=== PATIENT | female | born 1975 | race Hispanic/Latino ===

== ENCOUNTER 2019-08-21 14:09 | Emergency (ER) | payer OTHER, SELFPAY ==
[2019-08-21 14:15] VITALS: BP 134/62; PULSE 95; RESP 14; TEMP 36.6; O2SAT 99
--- NOTE | 2019-08-21 14:17 | ED.FALL ---
HPI - Fall General Chief Complaint: Fall Stated Complaint: Fall Time Seen by Provider: 08/21/19 14:23 Source: patient and RN notes reviewed Mode of arrival: ambulatory Limitations: no limitations History of Present Illness HPI Narrative: This is a 44 years old female presents to the office for an evaluation of feeling weak and then she fell. She landed on her hands and knees. Denies head injury or trauma. She complains of feeling weak, headache and not feeling well overall. She is diabetic. Related Data Home Medications Medication Instructions Recorded Confirmed fluoxetine 40 mg PO DAILY 08/21/19 08/21/19 metformin 1,000 mg PO BID 08/21/19 08/21/19 Allergies Allergy/AdvReac Type Severity Reaction Status Date / Time Penicillins Allergy Unknown Unknown Verified 08/21/19 14:24 Sulfa (Sulfonamide Allergy Unknown Unknown Verified 08/21/19 14:24 Antibiotics) Review of Systems Review of Systems: Narrative: CONSTITUTIONAL: Denies fever. Reports feeling weak, malaise ENT: Reports congestion CARDIOVASCULAR: Denies chest pain, palpitation RESPIRATORY: Denies dyspnea GASTROINTESTINAL: Denies abdominal pain, nausea, vomiting GENITOURINARY: Denies urinary incontinence or bowel incontinence. SKIN: denies skin trauma MUSCULOSKELETAL: Reports left wrist pain, right foot pain NEUROLOGIC: Denies lightheaded or dizziness prior to arrival; but remember feeling weak PMFSH Past Medical History Medical History (Updated 08/21/19 @ 14:58 by LAW Landrum) Anxiety Diabetes mellitus, type II Social History Social History (Updated 08/21/19 @ 14:59 by LAW Landrum) Smoking status: Never smoker Comments At time of signature, I agree with nursing past medical, surgical, social and family history. There is no relevant family history pertinent to the presenting complaint. Exam Narrative: Exam Narrative: GENERAL: This is a well-nourished, well-developed patient, in no apparent distress. HEAD: normocephalic EYES: PERRL. EMOI. Sclera clear/white. Vision is grossly intact. CARDIOVASCULAR: Regular rate and rhythm without murmurs, gallops, or rubs. RESPIRATORY: Clear to auscultation. Breath sounds equal bilaterally. No wheezes, rales, or rhonchi. GASTROINTESTINAL: Abdomen soft, non-tender, nondistended. Bowel sounds are active. No hepato-splenomegaly, or palpable masses. No guarding. SKIN: right lower leg with small skin abrasion. NEURO: awake, alert, and oriented to person, place and time. There were no obvious focal neurologic abnormalities. Steady gait EXTREMITIES:left wrist with limited ROM secondary to pain, right ankle is not swollen; however there is tenderness over dorsal aspect of foot. Robert Coma Scale Eye Opening: Spontaneous 4 [place] Coma Scale Motor: Obeys Commands 6 Robert Coma Scale Verbal: Oriented 5 Course Vital Signs Vital signs: Vital Signs Temperature 97.8 F 08/21/19 14:15 Pulse Rate 95 08/21/19 14:15 Respiratory Rate 14 08/21/19 14:15 Blood Pressure 134/62 08/21/19 14:15 Pulse Oximetry 99 08/21/19 14:15 Temperature 97.8 F 08/21/19 14:15 Pulse Rate 95 08/21/19 14:15 Respiratory Rate 14 08/21/19 14:15 Blood Pressure 134/62 08/21/19 14:15 Pulse Oximetry 99 08/21/19 14:15 Transfer Transfered to: [facility] Transportation: BLS Transfer rationale: Diagnostic testing Accepting physician: Dr. Ramírez MDM - Fall MDM Narrative Medical decision making narrative: CAD, wrist sprain, foot sprain/strain Differential Diagnosis Differential diagnosis: Likely syncope Lab Data Labs: Lab Results 08/21/19 Range/Units 14:48 POC Capillary Glucose 202 H (65-105) mg/dl Critical Care Time Critical Care Time Critical Care Time: No Discharge Plan Discharge Clinical Impression: Near syncope Patient Disposition: Acute Care Hospital Condition: Stable Prescriptions: No Action metformin 500 mg Tablet
[2019-08-21 14:51] LABS: Glucose Point of Care 202 (65-105)
== END 2019-08-21 15:00 | disposition short-term general hospital (02) ==
PROVIDERS: Emergency Provider Nurse Practitioner
DX: R55 Syncope and collapse (principal); E11.9 Type 2 diabetes mellitus without complications; F41.9 Anxiety disorder, unspecified
CPT/HCPCS: 82948; 99215; G0463

== ENCOUNTER 2020-09-23 12:15 | Emergency (ER) | payer OTHER, MEDICAID, SELFPAY ==
--- NOTE | 2020-09-23 12:19 | ED.GENADULT ---
HPI - General Adult General Chief complaint: Unspecified Stated complaint: blood sugar off Time Seen by Provider: 09/23/20 12:19 Source: patient and RN notes reviewed History of Present Illness HPI narrative: Patient is a 45-year-old female who presents the urgent care with complaints of blurry vision and dizziness . Patient states that her blood sugars have been high today and she is feeling side effects. Patient does have a building code administrator via phone call, her daughter Tracie Rangel. Patient states that she has also been having some chest tightness. Patient currently denies of any shortness of breath. States that she did have an [place] x1 year ago. Denies of any nausea or vomiting. Denies of any abdominal pain. Patient states she does take her diabetes medications appropriately. No other acute complaints. No acute distress noted. Patient aware of the plan of care. Some parts of this dictation were generated by voice recognition software and may contain typographical and/or grammatical inaccuracies. Related Data Home Medications Medication Instructions Recorded Confirmed fluoxetine 40 mg PO DAILY 08/21/19 08/21/19 metformin 1,000 mg PO BID 08/21/19 08/21/19 buspirone 5 mg PO BID 09/23/20 09/23/20 insulin lispro protamin-lispro 75 unit SUBCUT BID 09/23/20 09/23/20 Allergies Allergy/AdvReac Type Severity Reaction Status Date / Time Penicillins Allergy Unknown Unknown Verified 09/23/20 12:32 Sulfa (Sulfonamide Allergy Unknown Unknown Verified 09/23/20 12:32 Antibiotics) Review of Systems Review of Systems: Narrative: CONSTITUTIONAL: Denies fever, chills, or sweats. EYES: Denies visual changes, redness, or discharge. ENT: Denies rhinorrhea, congestion, sore throat, or otalgia. CARDIOVASCULAR: Reports of intermittent chest tightness (currently denies chest pain) RESPIRATORY: Denies cough or dyspnea. GASTROINTESTINAL: Denies abdominal pain, nausea, vomiting, or diarrhea. GENITOURINARY: Denies dysuria or hematuria. SKIN: Denies rash or itching. MUSCULOSKELETAL: Denies back pain, joint pain, or myalgia. NEUROLOGIC: Reports of blurry vision and dizziness All other systems reviewed are negative, except as documented in HPI. [facility] Past Medical History Medical History (Updated 09/23/20 @ 12:39 by LAW Stokes) Anxiety Diabetes mellitus, type II Social History Social History (Updated 08/21/19 @ 14:59 by LAW Landrum) Smoking status: Never smoker Gender identity (if verbalized by the patient): Female Comments At the time of my signature, I reviewed and agree with the nursing past medical, surgical, social, and family history. There is no relevant family history pertinent to the patient complaint. Exam Narrative: Exam Narrative: GENERAL: This is a well-nourished, well-developed patient, in no apparent distress. HEAD: normocephalic, atraumatic. EYES: PERRL. Sclera clear/white. Vision is grossly intact. EARS: External ears normal NOSE: External nose normal with no obvious nasal discharge, nares without redness, no rhinorrhea. THROAT: Mucous membranes moist NECK: Neck supple CARDIOVASCULAR: Regular rate and rhythm RESPIRATORY: Clear to auscultation. Breath sounds equal bilaterally. GASTROINTESTINAL: Abdomen soft, non-tender, nondistended. NEURO: awake, alert, and oriented to person, place and time. There were no obvious focal neurologic abnormalities. 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 EXTREMITIES: No clubbing, cyanosis, or edema. Course Vital Signs Vital signs: Vital Signs Temperature 97.5 F L 09/23/20 12:23 Pulse Rate 94 09/23/20 12:23 Respiratory Rate 24 H 09/23/20 12:23 Blood Pressure 150/78 H 09/23/20 12:23 Pulse Oximetry 99 09/23/20 12:23 Temperature 97.5 F L 09/23/20 12:23 Pulse Rate 94 09/23/20 12:23 Respiratory Rate 24 H 09/23/20 12:23 Blood Pressure 150/78 H 09/23/20 12:23 Pulse Oximetry 99 09/23/20 12:23 Reviewed-zak
[2020-09-23 12:23] VITALS: BP 150/78; PULSE 94; RESP 24; TEMP 36.4; O2SAT 99
[2020-09-23 12:38] LABS: Glucose Point of Care 366 mg/dl (65-105)
--- NOTE | 2020-09-23 12:42 | ECG_ITS ---
Measurements Intervals [place] Rate: 92 P: 50 FL: 139 QRS: 33 QRSD: 82 T: 49 QT: 354 QTc: 440 Interpretive Statements SINUS RHYTHM BASELINE ARTIFACT- II, III, AVR, AVL, AVF NORMAL ECG Electronically Signed On 09-23-2020 13:04:20 CDT by Luis Madison D.O.
== END 2020-09-23 12:40 | disposition short-term general hospital (02) ==
PROVIDERS: Emergency Provider Nurse Practitioner Family; PCP Family Medicine
DX: E11.65 Type 2 diabetes mellitus with hyperglycemia (principal); R07.9 Chest pain, unspecified; F41.9 Anxiety disorder, unspecified
CPT/HCPCS: 82948; 93005; 99213; G0463

== ENCOUNTER 2020-10-29 14:57 | Emergency (ER) | payer OTHER, MEDICAID, SELFPAY ==
--- NOTE | ~2020-10-29 | XR_ITS ---
EXAMINATION: XR chest 2V DATE: 10/29/2020 15:39 INDICATION: Chest pain. Shortness of breath. TECHNIQUE: Frontal and lateral views of the chest were obtained. COMPARISON: None. FINDINGS: The chest demonstrates clear lungs without pneumonia, pleural effusion, or pneumothorax. Th e heart size is normal. IMPRESSION: 1. No acute cardiopulmonary disease. Reviewed, dictated and finalized at location A.
--- NOTE | ~2020-10-29 | CT_ITS ---
EXAMINATION: CTA chest PE protocol DATE: 10/29/2020 19:30 INDICATION: Chest pain. TECHNIQUE: Computed tomography angiography (CTA) of the chest was performed with 100 mL Omnipaque-350 intravenous contrast timed to evaluate the pulmonary arteries. Coronal maximum intensity projection 3D-reconstructions were created by the technologist. Automated exposure control and iterative reconst ruction technique were employed. The dose-length product was 770.05 mGy-cm. COMPARISON: Chest 2 views 10/29/2020 FINDINGS: There is a 3 mm nodule at right major fissure, likely benign. No pleural effusion. The hear t size is normal. No pericardial effusion. There is no pulmonary embolus. The bones are unremarkable. IMPRESSION: 1. No pulmonary embolus. Sensitivity is mildly decreased by motion artifact. Reviewed, dictated and finalized at location A.
--- NOTE | 2020-10-29 15:01 | ECG_ITS ---
Measurements Intervals [place] Rate: 125 P: 31 AK: 130 QRS: 7 QRSD: 77 T: 29 QT: 309 QTc: 447 Interpretive Statements SINUS TACHYCARDIA BASELINE WANDER- I, III ABNORMAL ECG Electronically Signed On 10-29-2020 15:23:41 CDT by Luis Madison D.O.
[2020-10-29 15:12] VITALS: BP 150/107; PULSE 121; RESP 18; TEMP 36.7; O2SAT 98
[2020-10-29 15:16] VITALS: PULSE 120
--- NOTE | 2020-10-29 15:16 | PC.NURSE ---
patient talking with PD at this time per patient request. Patient declines all other medical treatment until talking with police.
[2020-10-29 15:22] LABS: Basophils Absolute Auto 0.1 K/mm3 (0.0-0.1); Basophils Percent Auto 0.5 % (0.2-1.2); Eosinophils Absolute Auto 0.1 K/mm3 (0-0.3); Eosinophils Percent Auto 1.3 % (0-4.4); Hematocrit 48.6 % (37.0-47.0); Hemoglobin 15.7 g/dL (12.0-15.0); Immature Granulocyte Absolute 0.09 K/mm3 (0.00-0.031); Immature Granulocyte Percent A 0.8 % (0-0.5); Lymphocytes Absolute Auto 2.08 K/mm3 (0.9-3.2); Lymphocytes Percent Auto 18.8 % (18.3-44.2); Mean Corpuscular HGB Conc 32.3 g/dl (32-36); Mean Corpuscular Hemoglobin 28.9 pg (26-34); Mean Corpuscular Volume 89.5 fl (80-100); Mean Platelet Volume 12.2 fl (7.4-10.4); Monocytes Absolute Auto 0.7 K/mm3 (0.1-0.6); Monocytes Percent Auto 6.1 % (2.6-8.5); Neutrophils Percent Auto 72.5 % (45.5-73.1); Platelet Count Result 204 k/mm3 (150-375); Red Blood Count 5.43 M/mm3 (4.2-5.4); Red Cell Distribution Width 12.6 % (11.5-14.5); White Blood Count 11.1 K/mm3 (4.5-10.0)
[2020-10-29 15:31] LABS: Anion Gap 14 mmol/L (8-16); Blood Urea Nitrogen 14 mg/dL (7-17); Calcium 9.2 mg/dL (8.4-10.2); Carbon Dioxide 19 mmol/L (22-30); Chloride 103 mmol/L (98-107); Estimated CRCL calculation 96 ml/min; Estimated Glomerular Filt Rate > 60; Glucose 265 mg/dL (65-105); Potassium 4.1 mmol/L (3.4-5.0); Sodium 136 mmol/L (137-145)
[2020-10-29 15:33] LABS: Prothrombin Time 13.7 Seconds (11.1-14.7)
[2020-10-29 15:34] LABS: Partial Thromboplastin Time 25.4 SECONDS (22.3-36.8)
--- NOTE | 2020-10-29 15:35 | ED.CHESTPAIN ---
HPI - Chest Pain General Chief Complaint: Chest Pain Stated Complaint: CP Time Seen by Provider: 10/29/20 15:33 Source: patient, family and RN notes reviewed Mode of arrival: ambulatory Limitations: no limitations History of Present Illness HPI narrative: Patient is 45 years old female came to the emergency room with her by private car complaining of intermittent chest pain for the last 7 days, been constant for the last 2 days, pressure type, squeezing, radiating to left upper extremity. Patient went to [facility] 1 week ago for the same complaint and was diagnosed of stress related symptoms. Patient under tremendous amount of stress lately because of her son and her [id number], today called the police to get them out of her house.. Patient reported the pain gets worse with stress and better when she relaxed. Patient also feel a lump in her neck when she gets stressed. Also poor concentration, insomnia and general weakness. History of diabetes, does not smoke, drink or uses drugs. Does not speak Maori. The above history was taken through manager deli. Related Data Home Medications Medication Instructions Recorded Confirmed fluoxetine 40 mg PO DAILY 08/21/19 09/23/20 metformin 1,000 mg PO BID 08/21/19 09/23/20 buspirone 5 mg PO BID 09/23/20 09/23/20 insulin lispro protamin-lispro 75 unit SUBCUT BID 09/23/20 09/23/20 Allergies Allergy/AdvReac Type Severity Reaction Status Date / Time Penicillins Allergy Unknown Unknown Verified 09/23/20 12:32 Sulfa (Sulfonamide Allergy Unknown Unknown Verified 09/23/20 12:32 Antibiotics) Review of Systems Review of Systems: Narrative: CONSTITUTIONAL: Denies fever, chills, or sweats. EYES: Denies visual changes, redness, or discharge. ENT: Denies rhinorrhea, congestion, sore throat, or otalgia. CARDIOVASCULAR: Denies chest pain, palpitations, or edema. RESPIRATORY: Denies cough or dyspnea. GASTROINTESTINAL: Denies abdominal pain, nausea, vomiting, or diarrhea. GENITOURINARY: Denies dysuria or hematuria. SKIN: Denies rash or itching. MUSCULOSKELETAL: Denies back pain, joint pain, or myalgia. NEUROLOGIC: Denies headache, numbness, or weakness. PSYCHIATRIC: Denies anxiety or depression. [facility] Past Medical History Medical History Anxiety Diabetes mellitus, type II Social History Social History Smoking status: Never smoker Gender identity (if verbalized by the patient): Female Exam Narrative: Exam Narrative: General appearance: Well-developed, well-nourished, at the bedside Skin: Normal color Head: Normocephalic, nontraumatic Eyes: Clear conjunctiva ENT: Oropharynx normal, ears normal, nose normal Neck: Supple, nontender Chest and respiratory: Airway patent, no respiratory distress, no accessory muscle use Heart: Tachycardia Abdomen: Soft, nontender, no organomegaly, quiet bowel sounds Vascular: Normal peripheral pulses, normal capillary refill. Musculoskeletal: Normal range of motion, nontender back Neurologic: Alert and oriented ?3, STUDY ASSISTANT is normal as tested, no gross motor deficit Course Course Emergency Course: Improving Vital Signs Vital signs: Vital Signs Temperature 36.7 C 10/29/20 15:12 Pulse Rate 121 H 10/29/20 15:12 Respiratory Rate 18 10/29/20 15:12 Blood Pressure 150/107 H 10/29/20 15:12 Pulse Oximetry 98 10/29/20 15:12 Temperature 36.7 C 10/29/20 15:12 Pulse Rate 103 H 10/29/20 18:33 Respiratory Rate 19 10/29/20 18:33 Blood Pressure 119/71 10/29/20 18:33 Pulse Oximetry 100 10/29/20 18:33 MDM
[2020-10-29 15:46] LABS: Troponin I < 0.012 ng/mL (0.000-0.034)
[2020-10-29 16:00] VITALS: BP 142/93; PULSE 118; RESP 26; O2SAT 97
[2020-10-29] MEDS: LORazepam INJ (*CRX) 2 MG/ML VIAL 1 MG IV PUSH (17:17)
[2020-10-29 17:19] VITALS: BP 142/93; PULSE 109; RESP 18; O2SAT 98
[2020-10-29 17:49] LABS: D Dimer 0.71 ug/mL (<0.48)
[2020-10-29 18:33] VITALS: BP 119/71; PULSE 103; RESP 19; O2SAT 100
[2020-10-29 18:47] LABS: Troponin I < 0.012 ng/mL (0.000-0.034)
[2020-10-29 20:31] VITALS: BP 113/48; PULSE 112; RESP 20; O2SAT 97
== END 2020-10-29 20:32 | disposition home or self-care (01) ==
PROVIDERS: Emergency Medicine; Emergency Provider Emergency Medicine; PCP Family Medicine
DX: R07.9 Chest pain, unspecified (principal); E11.9 Type 2 diabetes mellitus without complications; F41.9 Anxiety disorder, unspecified; Z79.4 Long term (current) use of insulin
CPT/HCPCS: 36415; 71046; 71275; 80048; 81025; 84484; 85025; 85380; 85610; 85730; 93005; 96374; 99284; J2060; Q9967

== ENCOUNTER 2021-04-13 11:09 | Emergency (ER) | payer OTHER, MEDICAID, SELFPAY ==
--- NOTE | ~2021-04-13 | XR_ITS ---
EXAMINATION: XR abdomen/kub 1V DATE: 04/13/2021 12:10 INDICATION: Left lower quadrant abdominal pain. Nausea. TECHNIQUE: A supine view of the abdomen on 2 radiographs was obtained. COMPARISON: Chest CT 10/29/2020 FINDINGS: There are no dilated loops of bowel. There is a moderate volume of stool in the colon. An e lectronic device overlies right abdomen. IMPRESSION: 1. Normal bowel gas pattern. Reviewed, dictated and finalized at location A. 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
[2021-04-13 11:15] VITALS: BP 156/93; PULSE 99; RESP 18; TEMP 36.3; O2SAT 99
--- NOTE | 2021-04-13 12:00 | ED.ABDPAIN ---
HPI - Abdominal Pain General Chief Complaint: Abdominal Pain Stated Complaint: lower left side stomach pain History of Present Illness HPI narrative: This is a 46-year-old female comes in complaining with severe left-sided abdominal pain that she has been having for the past 2 days patient states she is nauseated and not able to eat. Patient states that she has urine frequency and she has had a urinary tract infection a couple weeks ago she was treated for. Patient has pain when you touch the area on her left side. Patient denies any fever. Related Data Home Medications Medication Instructions Recorded Confirmed metformin 1,000 mg PO BID 08/21/19 04/13/21 insulin lispro protamin-lispro 75 unit SUBCUT BID 09/23/20 04/13/21 Allergies Allergy/AdvReac Type Severity Reaction Status Date / Time Penicillins Allergy Unknown Itching Verified 04/13/21 11:20 Sulfa (Sulfonamide Allergy Unknown Itching Verified 04/13/21 11:20 Antibiotics) Review of Systems Review of Systems: Left-sided abdominal pain, nausea All systems reviewed & are unremarkable except as noted in HPI and below PMFSH Past Medical History Medical History Anxiety Diabetes mellitus, type II Social History Social History Smoking status: Never smoker Gender identity (if verbalized by the patient): Female Comments At time as signature, I have reviewed and agree with nursing past medical, social, surgical and family history. Please see nursing chart for further information. There is no relevant family history pertinent to the presenting complaint. Exam Narrative: GENERAL ill-focal weight appearing, well-nourished, and in no acute distress. HEAD:Normocephalic EYES: PERRLA ENT: Nares clear, Mucous membranes moist. CHEST: Clear to auscultation. No respiratory distress. HEART: Regular rate and rhythm. ABDOMEN: Soft, tender, distended, normal active bowel sounds. Painful to palpation EXTREMITIES: Normal range of motion. No edema. SKIN: Warm, dry, no rash. NEURO: No focal deficits. Alert and oriented x3. Course FORWARDER OPERATOR/PA Physician Supervision Ordering Physician: Esther Hubbard APN Date of Service: 04/13/21 Procedure(s): XR abdomen/kub 1V Accession Number(s): [id number] cc: Esther Hubbard APN; Jose R, Eb Henderson MD~ EXAMINATION: XR abdomen/kub 1V DATE: 04/13/2021 12:10 INDICATION: Left lower quadrant abdominal pain. Nausea. TECHNIQUE: A supine view of the abdomen on 2 radiographs was obtained. COMPARISON: Chest CT 10/29/2020 FINDINGS: There are no dilated loops of bowel. There is a moderate volume of stool in the colon. An electronic device overlies right abdomen. IMPRESSION: 1. Normal bowel gas pattern. Reviewed, dictated and finalized at location A. WINDING MACHINE OPERATOR Vital Signs Vital signs: Vital Signs Temperature 97.3 F L 04/13/21 11:15 Pulse Rate 99 04/13/21 11:15 Respiratory Rate 18 04/13/21 11:15 Blood Pressure 156/93 H 04/13/21 11:15 Pulse Oximetry 99 04/13/21 11:15 Temperature 97.3 F L 04/13/21 11:15 Pulse Rate 99 04/13/21 11:15 Respiratory Rate 18 04/13/21 11:15 Blood Pressure 156/93 H 04/13/21 11:15 Pulse Oximetry 99 04/13/21 11:15 MDM - Abdominal Pain MDM Narrative Medical decision making narrative: Urine positive for ketones 2+ glucose Lab Data Labs: Urine Glucose 2+ Reference Range: Negative Urine Bilirubin Negative Reference Range: Negative Urine Ketone 1+ Reference Range: Negative Urine Specific [place] 1.025
== END 2021-04-13 13:23 | disposition home or self-care (01) ==
PROVIDERS: Emergency Provider Nurse Practitioner Family; PCP Family Medicine
DX: N30.90 Cystitis, unspecified without hematuria (principal); E11.9 Type 2 diabetes mellitus without complications; Z79.4 Long term (current) use of insulin
CPT/HCPCS: 74018; 81003; 99213; G0463

== ENCOUNTER 2021-04-26 11:14 | Emergency (ER) | payer OTHER, MEDICAID, SELFPAY ==
[2021-04-26 11:29] VITALS: BP 130/74; PULSE 84; RESP 18; O2SAT 98
--- NOTE | 2021-04-26 11:57 | ED.URI ---
HPI - URI/Sore Throat General Chief Complaint: Upper Respiratory Infection Stated Complaint: Eye Problem/Congestion Time Seen by Provider: 04/26/21 11:50 Source: patient Mode of arrival: ambulatory Limitations: no limitations History of Present Illness HPI Narrative: Terrance Castro is a 46 yo female with a PMH of diabetes who comes to [facility] complaining of burning itching eyes and nasal congestion that is been going on for 2 days-states that she has no cough,no fever, no chest congestion Related Data Home Medications Medication Instructions Recorded Confirmed metformin 1,000 mg PO BID 08/21/19 04/26/21 insulin lispro protamin-lispro 75 unit SUBCUT BID 09/23/20 04/26/21 insulin aspart U-100 [Novolog 100 sliding scale dose CONTINUOUS 04/26/21 04/26/21 U-100 Insulin aspart] SUBCUTANEOUS INFUSION DIRECTED Allergies Allergy/AdvReac Type Severity Reaction Status Date / Time Penicillins Allergy Unknown Itching Verified 04/13/21 11:20 Sulfa (Sulfonamide Allergy Unknown Itching Verified 04/13/21 11:20 Antibiotics) Review of Systems Review of Systems: CONSTITUTIONAL: Denies fever, chills, sweats. EYES: Denies visual changes, redness, discharge. ENT: Has rhinorrhea, has congestion, minimal sore throat, otalgia. CARDIOVASCULAR: Denies chest pain, palpitations, edema. RESPIRATORY: Denies dyspnea, wheezing, no cough GASTROINTESTINAL: Denies abdominal pain, nausea, vomiting, diarrhea. GENITOURINARY: Denies dysuria, hematuria, abnormal discharge SKIN: Denies rash or itching. NEUROLOGIC: Denies numbness, or focal weakness. PSYCHIATRIC: Denies anxiety or depression. PMFSH Past Medical History Medical History Anxiety Diabetes mellitus, type II Social History Social History (Updated 04/26/21 @ 12:08 by Jo Reese CNP) Smoking status: Never smoker Alcohol intake: never Gender identity (if verbalized by the patient): Female Comments At time of signature, I agree with nursing past medical, surgical, social and family history. There is no relevant family history pertinent to the presenting complaint. Exam Narrative: GENERAL: This is a well-nourished, well-developed patient, in mild distress. HEAD: normocephalic, atraumatic. EYES: Sclera clear/white. Vision is grossly intact. EARS: External ears normal, auditory canals clear and without drainage, TMs normal without perforation. Hearing grossly intact. NOSE: External nose normal with nasal discharge, nares with redness, has rhinorrhea. THROAT: Mucous membranes moist, posterior pharynx mild erythema clear liquid NECK: Neck supple, non-tender CARDIOVASCULAR: Regular rate and rhythm without murmurs, gallops, or rubs. RESPIRATORY: Clear to auscultation. Breath sounds equal bilaterally. No wheezes, rales, or rhonchi. GASTROINTESTINAL: Abdomen soft, SKIN: warm, intact with no suspicious lesions or rash, good texture and turgor. NEURO: awake, alert, and oriented to person, place and time. There were no obvious focal neurologic abnormalities. Steady gait EXTREMITIES: Normal range of motion. BACK: Nontender without deformity Course Course Emergency Course: Patient here with sinus congestion and bilateral eye itching Started on eyedrops, Flonase, zyrtec, mucinex-did not give oral steroids because of instability in her blood sugar-seen here 2 weeks ago for dysuria and she had 2+ glucose in her urine; her a.m. blood sugar today was 258 Vital Signs Vital signs: Vital Signs Pulse Rate 84 04/26/21 11:29 Respiratory Rate 18 04/26/21 11:29 Blood Pressure 130/74 04/26/21 11:29 Pulse Oximetry 98 04/26/21 11:29 Pulse Rate 84 04/26/21 11:29 Respiratory Rate 18 04/26/21 11:29 Blood Pressure 130/74 04/26/21 11:29 Pulse Oximetry 98 04/26/21 11:29 MDM - URI/Sore Throat Differential Diagnosis Differential diagnosis: Likely upper respiratory infection, sinusitis, viral infection
== END 2021-04-26 12:20 | disposition home or self-care (01) ==
PROVIDERS: Emergency Provider Nurse Practitioner
DX: J01.10 Acute frontal sinusitis, unspecified (principal); E11.9 Type 2 diabetes mellitus without complications; Z79.4 Long term (current) use of insulin; Z79.84 Long term (current) use of oral hypoglycemic drugs
CPT/HCPCS: 99213; G0463

== ENCOUNTER 2021-05-13 16:35 | Emergency (ER) | payer OTHER, MEDICAID, SELFPAY ==
[2021-05-13 17:00] VITALS: BP 157/102; PULSE 112; RESP 20; TEMP 37.5; O2SAT 98
[2021-05-13 18:15] VITALS: BP 140/90; PULSE 100; RESP 20
--- NOTE | 2021-05-13 18:16 | ED.URI ---
HPI - URI/Sore Throat General Stated Complaint: Fatigue Time Seen by Provider: 05/13/21 17:28 Source: patient, family and RN notes reviewed Mode of arrival: ambulatory History of Present Illness HPI Narrative: This is a 46 YO female that presented to the with complaints of weakness, fever, decreased appetite, fatigue, subjective fever, OJSEPH, SOB, body aches that occurred 2 weeks ago. She took ibuprofen at home to relieve her symptom with little relief. The patient denies , CP, palpitation, extremity numbness, lightheadedness, dizziness, constipation, and, chills, Related Data Home Medications Medication Instructions Recorded Confirmed metformin 1,000 mg PO BID 08/21/19 04/26/21 insulin lispro protamin-lispro 75 unit SUBCUT BID 09/23/20 04/26/21 insulin aspart U-100 [Novolog 100 sliding scale dose CONTINUOUS 04/26/21 04/26/21 U-100 Insulin aspart] SUBCUTANEOUS INFUSION DIRECTED Allergies Allergy/AdvReac Type Severity Reaction Status Date / Time Penicillins Allergy Unknown Itching Verified 04/13/21 11:20 Sulfa (Sulfonamide Allergy Unknown Itching Verified 04/13/21 11:20 Antibiotics) Review of Systems Review of Systems: All systems reviewed & are unremarkable except as noted in HPI and below PMFSH Past Medical History Medical History Anxiety Diabetes mellitus, type II Social History Social History Smoking status: Never smoker Alcohol intake: never Gender identity (if verbalized by the patient): Female Exam Narrative: GENERAL: ill appearance, in no apparent distress. HEAD: normocephalic, atraumatic. EYES: PERRL. Sclera clear/white. Vision is grossly intact. EARS: External ears normal, auditory canals clear and without drainage, TMs normal without perforation. Hearing grossly intact. NOSE: External nose normal with no obvious nasal discharge, nares without redness, no rhinorrhea. THROAT: Mucous membranes moist, posterior pharynx clear. NECK: Neck supple, non-tender without lymphadenopathy, masses or thyromegaly. CARDIOVASCULAR: Regular rate and rhythm without murmurs, gallops, or rubs. RESPIRATORY: Clear to auscultation. Breath sounds equal bilaterally. No wheezes, rales, or rhonchi. GASTROINTESTINAL: Abdomen soft, non-tender, nondistended. Bowel sounds are active. No hepato-splenomegaly, or palpable masses. No guarding. SKIN: warm, intact with no suspicious lesions or rash, good texture and turgor. NEURO: awake, alert, and oriented to person, place and time. There were no obvious focal neurologic abnormalities. Steady gait EXTREMITIES: Normal range of motion. No edema. No calf tenderness. Negative Homans sign bilaterally. BACK: Nontender without deformity or crepitance. No flank tenderness. Course Course Emergency Course: dx viral illness discharge with albuterol, guaifenesin, Tessalon suzie, Flonase, and Claritin Level of Care: Express Care Visit Vital Signs Vital signs: Vital Signs Temperature 99.5 F 05/13/21 17:00 Pulse Rate 112 H 05/13/21 17:00 Respiratory Rate 20 05/13/21 17:00 Blood Pressure 157/102 H 05/13/21 17:00 Pulse Oximetry 98 05/13/21 17:00 Temperature 99.5 F 05/13/21 17:00 Pulse Rate 112 H 05/13/21 17:00 Respiratory Rate 20 05/13/21 17:00 Blood Pressure 157/102 H 05/13/21 17:00 Pulse Oximetry 98 05/13/21 17:00 MDM - URI/Sore Throat Differential Diagnosis Differential diagnosis: Likely upper respiratory infection, viral infection, bronchitis, influenza and pharyngitis Lab Data Attestation: I reviewed the patient's lab results. Lab results narrative: covid neg Labs: Influenza A Screen Negative Reference Range: Negative Influenza B Screen Negative Reference Range: Negative Discharge Plan Discharge
== END 2021-05-13 18:15 | disposition home or self-care (01) ==
PROVIDERS: Emergency Provider Nurse Practitioner; PCP Family Medicine
DX: B34.9 Viral infection, unspecified (principal); Z20.822 Contact with and (suspected) exposure to COVID-19; E11.9 Type 2 diabetes mellitus without complications; Z79.4 Long term (current) use of insulin; Z79.84 Long term (current) use of oral hypoglycemic drugs
CPT/HCPCS: 87426; 87804; 99213; C9803; G0463

== ENCOUNTER 2021-05-31 12:14 | Emergency (ER) | payer OTHER, MEDICAID, SELFPAY ==
--- NOTE | 2021-05-31 12:22 | ED.GENADULT ---
HPI - General Adult General Chief complaint: Unspecified Stated complaint: Blood Sugar Problem Time Seen by Provider: 05/31/21 12:30 Source: patient and family Mode of arrival: ambulatory Limitations: language barrier (Daughter present to translate, patient indicates that she understands Nepali) History of Present Illness HPI narrative: 46-year-old female with history of insulin-dependent diabetes and CVA presents with concern for high blood sugar reading, tingling in her face. She reports last night and this morning she had an elevated blood sugar in the mid 400s. Reports she took her medications and insulin as prescribed. She would like to have her blood sugar checked again. She denies weakness in any extremity, speaking, difficulty swallowing, abnormal gait. Denies headache. She denies polyuria or polydipsia MD complaint: High blood sugar Related Data Home Medications Medication Instructions Recorded Confirmed metformin 1,000 mg PO BID 08/21/19 05/13/21 insulin lispro protamin-lispro 75 unit SUBCUT BID 09/23/20 05/13/21 insulin aspart U-100 [Novolog 100 sliding scale dose CONTINUOUS 04/26/21 05/13/21 U-100 Insulin aspart] SUBCUTANEOUS INFUSION DIRECTED hydroxyzine pamoate 25 mg PO DAILY 05/31/21 05/31/21 Allergies Allergy/AdvReac Type Severity Reaction Status Date / Time Penicillins Allergy Unknown Itching Verified 05/31/21 12:36 Sulfa (Sulfonamide Allergy Unknown Itching Verified 05/31/21 12:36 Antibiotics) Review of Systems Review of Systems: CONSTITUTIONAL: Denies malaise, chills, sweats, or fever. EYES: Denies visual changes HENT: Denies dysphasia or dysphagia CARDIOVASCULAR: Denies chest pain, palpitations, or edema. RESPIRATORY: Denies cough or dyspnea. GASTROINTESTINAL: Denies abdominal pain, nausea, vomiting, diarrhea GENITOURINARY: Denies polyuria SKIN: Denies rash or itching. MUSCULOSKELETAL: Denies myalgia. NEUROLOGIC: Denies numbness, weakness, or headache. Reports facial tingling All systems reviewed & are unremarkable except as noted in HPI and below PMFSH Past Medical History Medical History Anxiety Diabetes mellitus, type II Social History Social History Smoking status: Never smoker Alcohol intake: never Gender identity (if verbalized by the patient): Female Comments At time of signature, agree with nursing past medical, surgical, social and family history. There is no relevant family history pertinent to the presenting complaint Exam Narrative: GENERAL: Well-appearing, well-nourished, and in no acute distress. HEAD: Normocephalic, atraumatic. EYES: PERRLA, sclera clear, and EOMI. No nystagmus. ENT: Nares clear. Mucous membranes moist. NECK: Supple. No lymphadenopathy. No jugular venous distension, thyromegaly, or carotid bruits. Carotids were easily palpable bilaterally. CHEST: No respiratory distress. Clear to auscultation. No bony deformities, no asymmetry. Speaks in full sentences. HEART: Regular rate and rhythm. No murmur heard. Normal peripheral pulses. EXTREMITIES: Grossly normal range of motion. No edema. Normal and equal strength and sensation. SKIN: Warm, dry, no visible rash. NEURO: Alert and oriented x3. No focal deficits. Cranial nerves II through XII grossly intact, no upper extremity or lower extremity drift PSYCH: Normal mood and affect Course Course Emergency Course: Discussed limited diagnostic capability at the [facility], discussed current blood sugar level. Discussed exam findings. Discussed transfer to emergency room for further evaluation, patient and her daughter at this time refused to go to the emergency room, they understand limited diagnostic capability at the [facility], understand that more diagnostic testing is needed to fully evaluate symptoms. Patient agrees to follow-up as directed and is aware of reasons to seek care at
[2021-05-31 12:28] VITALS: BP 155/89; PULSE 95; RESP 16; TEMP 37.1; O2SAT 98
[2021-05-31 12:36] LABS: Glucose Point of Care 298 mg/dl (65-105)
[2021-05-31 13:06] VITALS: BP 155/89; PULSE 95; RESP 16; TEMP 37.1; O2SAT 98
== END 2021-05-31 12:53 | disposition home or self-care (01) ==
PROVIDERS: Emergency Provider Nurse Practitioner; PCP Family Medicine
DX: E11.65 Type 2 diabetes mellitus with hyperglycemia (principal); F41.9 Anxiety disorder, unspecified; Z79.84 Long term (current) use of oral hypoglycemic drugs; Z79.4 Long term (current) use of insulin
CPT/HCPCS: 82948; 99212; G0463

== ENCOUNTER 2021-07-19 18:06 | Emergency (ER) | payer OTHER, MEDICAID, SELFPAY ==
[2021-07-19 18:16] VITALS: BP 139/70; PULSE 106; RESP 20; TEMP 37.2; O2SAT 100
--- NOTE | 2021-07-19 18:23 | ED.HA ---
HPI - Headache General Chief Complaint: Headache Stated Complaint: headache and eye pain Time Seen by Provider: 07/19/21 18:26 Source: patient, RN notes reviewed, old records reviewed and interpreter for the deaf (Wanted to use daughter) Mode of arrival: ambulatory Limitations: no limitations and language barrier (Belgian-speaking) History of Present Illness HPI Narrative: 46-year-old female presents to the [facility] frontal headache, light sensitivity, nausea, intermittent abdominal pain. Blood sugar has been elevated Patient states she has felt generalized weakness. Left side of her face feels weaker than the right. No other neuro deficits noted. face is symmetrical. Last known normal was Monday Has taken ibuprofen with no relief MD elicited complaint: headache Onset (ago): day(s) (2, started on Monday) Related Data Home Medications Medication Instructions Recorded Confirmed metformin 1,000 mg PO BID 08/21/19 05/31/21 insulin lispro protamin-lispro 75 unit SUBCUT BID 09/23/20 05/31/21 insulin aspart U-100 [Novolog 100 sliding scale dose CONTINUOUS 04/26/21 05/31/21 U-100 Insulin aspart] SUBCUTANEOUS INFUSION DIRECTED Allergies Allergy/AdvReac Type Severity Reaction Status Date / Time Penicillins Allergy Unknown Itching Verified 07/19/21 18:33 Sulfa (Sulfonamide Allergy Unknown Itching Verified 07/19/21 18:33 Antibiotics) Review of Systems Review of Systems: All systems reviewed & are unremarkable except as noted in HPI and below Constitutional: Constitutional: Reports as per HPI, Denies chills, Reports fatigue, Denies fever(s) and Reports weakness Eyes: Eyes: Reports as per HPI and Reports photophobia ENT: Reports system reviewed and no additional complaints, except as documented Cardiovascular: Cardiovascular: Reports no additional cardiovascular complaints and Denies chest pain Respiratory: Respiratory: Reports no additional respiratory complaints and Denies cough Gastrointestinal: Gastrointestinal: Reports as per HPI, Reports abdominal pain (Intermittent, generalized), Reports nausea and Denies vomiting Musculoskeletal: Musculoskeletal: Reports no additional musculoskeletal complaints and Denies back pain Integumentary/Breasts: Skin/Breast: Reports system reviewed and no additional complaints, except as docu Neurologic: Reports as per HPI, Denies confusion, Reports headache(s), Denies focal weakness, Denies numbness and Reports weakness (Generalized) Comments: Decreased sensation left side Psychiatric: Psychiatric: Reports no additional psychiatric complaints Allergic/Immunologic: Allergic/Immunologic: Reports no additional allergic/immunologic complaints PMFSH Past Medical History Medical History Anxiety Diabetes mellitus, type II Social History Social History Smoking status: Never smoker Alcohol intake: never Gender identity (if verbalized by the patient): Female Comments At the time of my signature, I reviewed and agree with the nursing past medical, surgical, social, and family history. There is no relevant family history pertinent to the patient complaint. Exam Const: General: healthy appearing, no acute distress and alert Nutritional Appearance: well nourished and obese Orientation/consciousness: patient oriented x3 Limitations: no limitations, No altered mental status and language barrier (Using daughter for interpretation) HENMT: Head: normal to inspection Ears: external ears normal Face and sinus: normal facial exam Eyes: Conjunctivae: conjunctivae normal Pupils: Equal, round and reactive pupils present EOM: EOMs intact bilaterally Direct Ophthalmoscopy: photophobia Neck: Neck: normal visual inspection, no lymphadenopathy and no meningeal signs Chest: Chest palpation & inspection: normal inspection of the chest Resp: Effort & Inspection: normal respiratory effor
[2021-07-19 18:34] LABS: Glucose Point of Care 437 mg/dl (65-105)
--- NOTE | 2021-07-19 18:39 | ECG_ITS ---
Measurements Intervals [place] Rate: 94 P: 43 PA: 135 QRS: 46 QRSD: 81 T: 48 QT: 347 QTc: 436 Interpretive Statements SINUS RHYTHM COMPARED TO ECG 10/29/2020 15:07:35 SINUS RHYTHM NOW PRESENT Electronically Signed On 07-20-2021 12:03:19 CDT by Mindy Zavala M.D.
== END 2021-07-19 18:54 | disposition short-term general hospital (02) ==
PROVIDERS: Emergency Provider Nurse Practitioner; PCP Family Medicine
DX: R51.9 Headache, unspecified (principal); E11.65 Type 2 diabetes mellitus with hyperglycemia; Z79.4 Long term (current) use of insulin; Z79.84 Long term (current) use of oral hypoglycemic drugs
CPT/HCPCS: 82948; 93005; 99215; G0463

== ENCOUNTER 2021-09-01 18:34 | Emergency (ER) | payer OTHER, MEDICAID, SELFPAY ==
[2021-09-01 18:43] VITALS: BP 157/76; PULSE 96; RESP 20; TEMP 36.6; O2SAT 100
--- NOTE | 2021-09-01 19:02 | ED.NAVMDI ---
HPI - Nausea/Vomiting/Diarrhea General Chief complaint: Nausea/Vomiting/Diarrhea Stated complaint: diahhrea fatigue nausea Time Seen by Provider: 09/01/21 19:10 Source: patient and RN notes reviewed Mode of arrival: ambulatory Limitations: language barrier (patient has broken Kiswahili, Daughter translating ) History of Present Illness HPI Narrative: 46-year-old female with history of diabetes presents with concern for 2-day history of nausea, diarrhea, generalized weakness, fatigue, body aches. She denies nasal congestion, rhinorrhea, sore throat, cough. MD elicited complaint: nausea and diarrhea Related Data Home Medications Medication Instructions Recorded Confirmed metformin 1,000 mg PO BID 08/21/19 09/01/21 insulin aspart U-100 [Novolog 100 sliding scale dose CONTINUOUS 04/26/21 09/01/21 U-100 Insulin aspart] SUBCUTANEOUS INFUSION DIRECTED ibuprofen 600 mg PO TID PRN 09/01/21 09/01/21 Allergies Allergy/AdvReac Type Severity Reaction Status Date / Time Penicillins Allergy Unknown Itching Verified 09/01/21 18:54 Sulfa (Sulfonamide Allergy Unknown Itching Verified 09/01/21 18:54 Antibiotics) Review of Systems Review of Systems: CONSTITUTIONAL: Denies malaise, chills, sweats, or fever. ENT: Denies rhinorrhea, congestion, sinus pain, otalgia or sore throat. CARDIOVASCULAR: Denies chest pain, palpitations, or edema. RESPIRATORY: Denies cough or dyspnea. GASTROINTESTINAL: Denies abdominal pain, vomiting, bloody, or mucous stools. Reports nausea and diarrhea. Reports approximately 2-3 diarrhea stools a day GENITOURINARY: Denies dysuria or hematuria. MUSCULOSKELETAL: Denies myalgia. NEUROLOGIC: Denies headache. All systems reviewed & are unremarkable except as noted in HPI and below PMFSH Past Medical History Medical History Anxiety Diabetes mellitus, type II Social History Social History Smoking status: Never smoker Alcohol intake: never Gender identity (if verbalized by the patient): Female Comments At time of signature, agree with nursing past medical, surgical, social and family history. There is no relevant family history pertinent to the presenting complaint Exam Narrative: GENERAL: Well-appearing, well-nourished, and in no acute distress. HEAD: Normocephalic, atraumatic. EYES: PERRLA, conjunctivae clear, and EOMI. ENT: Nares clear, turbinates pink, no rhinorrhea or epistaxis. Mucous membranes moist. Oropharynx without edema, erythema, or lesions. Tonsils not enlarged and without exudate. NECK: Supple. No lymphadenopathy CHEST: Speaks in full sentences. No respiratory distress. HEART: Regular rate and rhythm. ABDOMEN: Soft, flat, nondistended. No guarding, rebound tenderness, or rigid. No pulsatilla masses. Bowel sounds present in all four quadrants. No organomegaly. Negative Hennessy?s sign. No periumbilical tenderness. No Supra public tenderness or distension. Good femoral pulses bilaterally. No hernia noted. No scars or surface trauma. SKIN: Warm, dry, no rash. NEURO: Alert and oriented x3. PSYCH: Normal mood and affect Course Course Emergency Course: Patient is aware of diagnosis, understands and agrees to treatment plan. Anticipatory guidance given. Patient agrees to follow-up as directed and is aware of reasons to seek care at the emergency department. Portions of this record may have been created with voice recognition software Level of Care: Express Care Visit Vital Signs Vital signs: Vital Signs Temperature 97.9 F 09/01/21 18:43 Pulse Rate 96 09/01/21 18:43 Respiratory Rate 20 09/01/21 18:43 Blood Pressure 157/76 H 09/01/21 18:43 Pulse Oximetry 100 09/01/21 18:43 Temperature 97.9 F 09/01/21 18:43 Pulse Rate 96 09/01/21 18:43 Respiratory Rate 20 09/01/21 18:43 Blood Pressure 157/76 H 09/01/21 18:43 Pulse Oximetry 100 09/01/21 18:43 R
[2021-09-01 19:15] LABS: Glucose Point of Care 197 mg/dl (65-105)
== END 2021-09-01 19:30 | disposition home or self-care (01) ==
PROVIDERS: Emergency Provider Nurse Practitioner; PCP Family Medicine
DX: B34.9 Viral infection, unspecified (principal); E11.9 Type 2 diabetes mellitus without complications; Z79.84 Long term (current) use of oral hypoglycemic drugs; Z79.4 Long term (current) use of insulin
CPT/HCPCS: 82948; 87804; 99213; G0463

== ENCOUNTER 2021-09-28 09:20 | Emergency (ER) | payer OTHER, MEDICAID, SELFPAY ==
[2021-09-28 09:30] VITALS: PULSE 98; RESP 16; TEMP 36.6; O2SAT 98
[2021-09-28 09:56] VITALS: BP 168/92
--- NOTE | 2021-09-28 10:09 | ED.EXTPRO ---
HPI - Extremity Problem General Chief complaint: Extremity Problem,Nontraumatic Stated complaint: joints in forearms are aching Time Seen by Provider: 09/28/21 10:35 Source: patient Mode of arrival: ambulatory Limitations: language barrier (Patient is [place] Citizen-speaking, translation dimple used) History of Present Illness HPI Narrative: 46-year-old female presents with concern for body aches that started last night. She has a history of diabetes has history of diabetic ketoacidosis. She is also reporting headache, blurry vision. She denies upper respiratory symptoms just cough, nasal congestion, rhinorrhea, sore throat. Reports she took her blood sugar this morning and it was around 200. She denies weakness in any extremity, thunderclap headache. Related Data Home Medications Medication Instructions Recorded Confirmed metformin 500 mg tablet 1,000 mg PO BID 08/21/19 09/28/21 insulin aspart U-100 100 unit/mL 100 sliding scale dose continuous 04/26/21 09/28/21 subcutaneous solution (Novolog subcutaneous infusion DIRECTED U-100 Insulin aspart) ibuprofen 600 mg tablet 600 mg PO TID PRN Pain 09/01/21 09/28/21 atorvastatin 80 mg tablet 80 tablet PO DAILY 09/28/21 09/28/21 Allergies Allergy/AdvReac Type Severity Reaction Status Date / Time Penicillins Allergy Unknown Itching Verified 09/28/21 09:47 Sulfa (Sulfonamide Allergy Unknown Itching Verified 09/28/21 09:47 Antibiotics) Review of Systems Review of Systems: CONSTITUTIONAL: Denies malaise, chills, sweats, or fever. EYES: Reports blurry vision ENT: Denies rhinorrhea, congestion, sinus pain, otalgia or sore throat. CARDIOVASCULAR: Denies chest pain, palpitations, or edema. RESPIRATORY: Denies cough or dyspnea. GASTROINTESTINAL: Denies abdominal pain, nausea, vomiting, diarrhea, bloody, or mucous stools. GENITOURINARY: Denies dysuria or hematuria. MUSCULOSKELETAL: Reports generalized joint pain NEUROLOGIC: Denies numbness, weakness. Reports headache. All systems reviewed & are unremarkable except as noted in HPI and below PMFSH Past Medical History Medical History Anxiety Diabetes mellitus, type II Social History Social History (Reviewed 07/19/21 @ 18:38 by SAURAV Perera Smoking status: Never smoker Alcohol intake: never Gender identity (if verbalized by the patient): Female Comments At time of signature, agree with nursing past medical, surgical, social and family history. There is no relevant family history pertinent to the presenting complaint Exam Narrative: GENERAL: Nontoxic-appearing and in no acute distress. HEAD: Normocephalic, atraumatic. EYES: PERRLA, sclera clear, and EOMI. No nystagmus. ENT: Nares clear. Mucous membranes moist. NECK: Supple. CHEST: No respiratory distress. Slight crackles noted in the bases, otherwise clear to auscultation No bony deformities, no asymmetry. Speaks in full sentences. EXTREMITIES: Grossly normal range of motion SKIN: Warm, dry, no visible rash. NEURO: Alert and oriented x3. PSYCH: Normal mood and affect Course Course Emergency Course: Patient is aware of, understands and agrees to transfer to the ER, patient request transfer via EMS Portions of this record may have been created with voice recognition software Level of Care: Express Care Visit Vital Signs Vital signs: Vital Signs Temperature 97.9 F 09/28/21 09:30 Pulse Rate 98 09/28/21 09:30 Respiratory Rate 16 09/28/21 09:30 Pulse Oximetry 98 09/28/21 09:30 Oxygen Delivery Room Air 09/28/21 09:30 Temperature 97.9 F 09/28/21 09:30 Pulse Rate 98 09/28/21 09:30 Respiratory Rate 16 09/28/21 09:30 Blood Pressure 168/92 H 09/28/21 09:56 Pulse Oximetry 98 09/28/21 09:30 Oxygen Delivery Room Air 09/28/21 09:30 Reviewed. Transfer Transfered to: [facility] Transportation: S Transfer rationale: Hyperglycemia Accepting physici
[2021-09-28 10:40] LABS: Glucose Point of Care > 500 mg/dl (65-105)
== END 2021-09-28 10:55 | disposition short-term general hospital (02) ==
PROVIDERS: Emergency Provider Nurse Practitioner; PCP Family Medicine
DX: E11.10 Type 2 diabetes mellitus with ketoacidosis without coma (principal); Z79.4 Long term (current) use of insulin; Z79.84 Long term (current) use of oral hypoglycemic drugs
CPT/HCPCS: 82948; 99215; G0463

== ENCOUNTER 2021-11-11 16:09 | Emergency (ER) | payer OTHER, MEDICAID, SELFPAY ==
--- NOTE | 2021-11-11 16:13 | ED.FEMALEGU ---
HPI - Female Genitourinary General Chief complaint: Urogenital-Female Stated complaint: Vaginal Issue Time Seen by Provider: 11/11/21 16:14 Source: patient and RN notes reviewed History of Present Illness HPI Narrative: Patient is a 46-year-old female who presents the urgent care with complaints of a urinary tract infection with worsening pain. Patient states she is had a lot of nausea but denies vomiting, fever or abdominal pain. Reports of suprapubic pressures. Patient was in the emergency room on Monday at [facility] and placed on Macrobid. Patient's culture grew back E. coli which is sensitive for the Macrobid. Patient states that she has not had any blood in the urine or vaginal discharge. States that her pain is been so bad that she was unable to go to work and is needing further work release. Patient was given morphine, Rocephin and Zofran in the emergency room. No other acute complaints. No acute distress noted. Patient and daughter aware of the plan of care. Daughter is helping to translate. Some parts of this dictation were generated by voice recognition software and may contain typographical and/or grammatical inaccuracies. Related Data Home Medications Medication Instructions Recorded Confirmed metformin 500 mg tablet 1,000 mg PO BID 08/21/19 09/28/21 insulin aspart U-100 100 unit/mL 100 sliding scale dose continuous 04/26/21 09/28/21 subcutaneous solution (Novolog subcutaneous infusion DIRECTED U-100 Insulin aspart) ibuprofen 600 mg tablet 600 mg PO TID PRN Pain 09/01/21 09/28/21 atorvastatin 80 mg tablet 80 tablet PO DAILY 09/28/21 09/28/21 Allergies Allergy/AdvReac Type Severity Reaction Status Date / Time Penicillins Allergy Unknown Itching Verified 09/28/21 09:47 Sulfa (Sulfonamide Allergy Unknown Itching Verified 09/28/21 09:47 Antibiotics) Review of Systems Review of Systems: CONSTITUTIONAL: Denies fever, chills, or sweats. EYES: Denies visual changes, redness, or discharge. ENT: Denies rhinorrhea, congestion, sore throat, or otalgia. CARDIOVASCULAR: Denies chest pain, palpitations, or edema. RESPIRATORY: Denies cough or dyspnea. GASTROINTESTINAL: Denies abdominal pain, nausea, vomiting, or diarrhea. GENITOURINARY: Reports of dysuria, urinary frequency and urgency with suprapubic pressure SKIN: Denies rash or itching. MUSCULOSKELETAL: Reports of low back pain NEUROLOGIC: Denies headache, numbness, or weakness. All other systems reviewed are negative, except as documented in HPI. [facility] Past Medical History Medical History Anxiety Diabetes mellitus, type II Social History Social History Smoking status: Never smoker Alcohol intake: never Gender identity (if verbalized by the patient): Female Comments At the time of my signature, I reviewed and agree with the nursing past medical, surgical, social, and family history. There is no relevant family history pertinent to the patient complaint. Exam Narrative: GENERAL: This is a well-nourished, well-developed patient, in no apparent distress. HEAD: normocephalic, atraumatic. EYES: PERRL. Sclera clear/white. Vision is grossly intact. EARS: External ears normal NOSE: External nose normal with no obvious nasal discharge, nares without redness, no rhinorrhea. THROAT: Mucous membranes moist NECK: Neck supple CARDIOVASCULAR: Regular rate and rhythm without murmurs, gallops, or rubs. RESPIRATORY: Clear to auscultation. Breath sounds equal bilaterally. No wheezes, rales, or rhonchi. GASTROINTESTINAL: Abdomen soft, suprapubic tenderness, nondistended. Bowel sounds are active. SKIN: warm, intact with no suspicious lesions or rash, good texture and turgor. NEURO: awake, alert, and oriented to person, place and time. There were no obvious focal neurologic abnormalities. EXTREMITIES: No clubbing, cyanosis, or edema. B
[2021-11-11 16:16] VITALS: BP 130/74; PULSE 105; RESP 20; TEMP 36.9; O2SAT 98
== END 2021-11-11 17:06 | disposition home or self-care (01) ==
PROVIDERS: Emergency Provider Nurse Practitioner Family; PCP Family Medicine
DX: N39.0 Urinary tract infection, site not specified (principal); F41.9 Anxiety disorder, unspecified; E11.9 Type 2 diabetes mellitus without complications; Z79.4 Long term (current) use of insulin; Z79.1 Long term (current) use of non-steroidal anti-inflammatories (NSAID)
CPT/HCPCS: 99213; G0463

== ENCOUNTER 2021-12-01 13:28 | Emergency (ER) | payer OTHER, MEDICAID, SELFPAY ==
[2021-12-01 13:35] VITALS: BP 141/79; PULSE 82; RESP 18; TEMP 36.6; O2SAT 99
--- NOTE | 2021-12-01 14:25 | ED_ITS ---
HPI - Eye Problem General Chief complaint: Eye Problems Stated complaint: Eye Problem Time Seen by Provider: 12/01/21 14:25 Source: patient Mode of arrival: ambulatory Limitations: no limitations Related Data Home Medications Medication Instructions Recorded Confirmed metformin 500 mg tablet 1,000 mg PO BID 08/21/19 12/01/21 insulin aspart U-100 100 unit/mL 100 sliding scale dose continuous 04/26/21 12/01/21 subcutaneous solution (Novolog subcutaneous infusion DIRECTED U-100 Insulin aspart) atorvastatin 80 mg tablet 40 tablet PO DAILY 09/28/21 12/01/21 buspirone 5 mg tablet 5 mg PO DAILY 12/01/21 12/01/21 dulaglutide 1.5 mg/0.5 mL 1.5 mg subcut WEEKLY 12/01/21 12/01/21 subcutaneous pen injector (Trulicity) Allergies Allergy/AdvReac Type Severity Reaction Status Date / Time Penicillins Allergy Unknown Itching Verified 12/01/21 13:47 Sulfa (Sulfonamide Allergy Unknown Itching Verified 12/01/21 13:47 Antibiotics) [facility] Past Medical History Medical History Anxiety Diabetes mellitus, type II Social History Social History Smoking status: Never smoker Alcohol intake: never Gender identity (if verbalized by the patient): Female Course Vital Signs Vital signs: Vital Signs Temperature 36.6 C 12/01/21 13:35 Pulse Rate 82 12/01/21 13:35 Respiratory Rate 18 12/01/21 13:35 Blood Pressure 141/79 H 12/01/21 13:35 Pulse Oximetry 99 12/01/21 13:35 Oxygen Delivery Room Air 12/01/21 13:35 Temperature 36.6 C 12/01/21 13:35 Pulse Rate 82 12/01/21 13:35 Respiratory Rate 18 12/01/21 13:35 Blood Pressure 141/79 H 12/01/21 13:35 Pulse Oximetry 99 12/01/21 13:35 Oxygen Delivery Room Air 12/01/21 13:35 Discharge Plan Discharge Prescriptions: No Action metformin 500 mg Tablet 1,000 mg PO BID atorvastatin 80 mg tablet 40 tablet PO DAILY buspirone 5 mg Tablet 5 mg PO DAILY Trulicity 1.5 mg/0.5 mL Pen Injector 1.5 mg SUBCUT WEEKLY insulin aspart U-100 [Novolog U-100 Insulin aspart] 100 unit/mL solution 100 sliding scale dose continuous subcutaneous infusion DIRECTED Follow-up/Referrals: PHYSICIAN NOT ON STAFF,NONSTAFF [Primary Care Provider] -
--- NOTE | 2021-12-01 14:47 | ED.URI ---
HPI - URI/Sore Throat General Chief Complaint: Eye Problems Stated Complaint: Eye Problem Time Seen by Provider: 12/01/21 14:25 Source: family Mode of arrival: ambulatory Limitations: no limitations History of Present Illness HPI Narrative: 46 yo F presents with daughter with c/o nasal congestion, mild cough, bodyaches, headache, fatigue starting this AM. Not taking any OTC meds to treat her symptoms. No N/v/D. No SOB/CP. pt's recently had cough. did not take covid test. Patient had negative home COVID test today. All systems reviewed and negative except as noted above. Related Data Home Medications Medication Instructions Recorded Confirmed metformin 500 mg tablet 1,000 mg PO BID 08/21/19 12/01/21 insulin aspart U-100 100 unit/mL 100 sliding scale dose continuous 04/26/21 12/01/21 subcutaneous solution (Novolog subcutaneous infusion DIRECTED U-100 Insulin aspart) atorvastatin 80 mg tablet 40 tablet PO DAILY 09/28/21 12/01/21 buspirone 5 mg tablet 5 mg PO DAILY 12/01/21 12/01/21 dulaglutide 1.5 mg/0.5 mL 1.5 mg subcut WEEKLY 12/01/21 12/01/21 subcutaneous pen injector (Trulicity) Allergies Allergy/AdvReac Type Severity Reaction Status Date / Time Penicillins Allergy Unknown Itching Verified 12/01/21 13:47 Sulfa (Sulfonamide Allergy Unknown Itching Verified 12/01/21 13:47 Antibiotics) Review of Systems Review of Systems: CONSTITUTIONAL: Denies fever, chills, or sweats. Reports fatigue. EYES: Denies visual changes, redness, or discharge. ENT: Reports rhinorrhea, congestion. Denies sore throat, or otalgia. CARDIOVASCULAR: Denies chest pain, palpitations, or edema. RESPIRATORY: Denies cough or dyspnea. GASTROINTESTINAL: Denies abdominal pain, nausea, vomiting, or diarrhea. GENITOURINARY: Denies dysuria or hematuria. SKIN: Denies rash or itching. MUSCULOSKELETAL: Denies back pain, joint pain. Reports myalgia. NEUROLOGIC: Reports headache. Denies numbness, or weakness. PSYCHIATRIC: Denies anxiety or depression. All other systems reviewed are negative, except as documented in HPI. [facility] Past Medical History Medical History Anxiety Diabetes mellitus, type II Social History Social History Smoking status: Never smoker Alcohol intake: never Gender identity (if verbalized by the patient): Female Comments At time of signature, agree with nursing past medical, surgical, social and family history. There is no relevant family history pertinent to the presenting complaint. Exam Narrative: GENERAL: This is a well-nourished, well-developed patient, in no apparent distress. HEAD: normocephalic, atraumatic. EYES: PERRL. Sclera clear/white. Vision is grossly intact. EARS: External ears normal, auditory canals clear and without drainage, TMs normal without perforation. Hearing grossly intact. NOSE: External nose normal with clear nasal drainage. No erythema or swelling to nares. THROAT: Mucous membranes moist, mild erythema to posterior pharynx. NECK: Neck supple, non-tender without lymphadenopathy, masses or thyromegaly. CARDIOVASCULAR: Regular rate and rhythm without murmurs, gallops, or rubs. RESPIRATORY: Clear to auscultation. Breath sounds equal bilaterally. No wheezes, rales, or rhonchi. SKIN: warm, Dry, intact with no suspicious lesions or rash, good texture and turgor. NEURO: awake, alert, and oriented to person, place and time. There were no obvious focal neurologic abnormalities. EXTREMITIES: No joint tenderness, effusion, or edema noted. Course Course Emergency Course: Patient is aware of diagnosis, understands and agrees to treatment plan. Anticipatory guidance given. Patient agrees to follow-up as directed and is aware of reasons to seek care at the emergency department. Portions of this record may have been created with voice recognition software Level of
== END 2021-12-01 14:55 | disposition home or self-care (01) ==
PROVIDERS: Emergency Provider Nurse Practitioner Family
DX: J06.9 Acute upper respiratory infection, unspecified (principal); E11.9 Type 2 diabetes mellitus without complications; F41.9 Anxiety disorder, unspecified
CPT/HCPCS: 99212; G0463

== ENCOUNTER 2021-12-08 12:27 | Emergency (ER) | payer OTHER, MEDICAID, SELFPAY ==
--- NOTE | ~2021-12-08 | XR_ITS ---
EXAMINATION: XR abdomen/kub 1V DATE: 12/08/2021 13:06 INDICATION: Left upper abdominal pain. Diarrhea. TECHNIQUE: A supine view of the abdomen on 2 radiographs was obtained. COMPARISON: Abdomen radiographs 04/13/2021 FINDINGS: There are no dilated loops of bowel. There is a moderate volume of stool in the colon. IMPRESSION: 1. Normal bowel gas pattern. Reviewed, dictated and finalized at location A.
--- NOTE | 2021-12-08 12:31 | ED.ABDPAIN ---
HPI - Abdominal Pain General Chief Complaint: Abdominal Pain Stated Complaint: stomach pain Time Seen by Provider: 12/08/21 12:32 Source: patient Mode of arrival: ambulatory Limitations: no limitations History of Present Illness HPI narrative: Ms. Nevarez is a 46-year-old female patient presenting to the clinic today with complaints of mid and left sided abdominal pain x1 week. She reports she is also having diarrhea and nausea. Reports having 5-7 stools per day. She has not had any testing on her stool in her prior visit. She denies any fever or chills. Rates pain currently 6-7/10- states that pain is cramping. Is feeling bloated and having very foul smelling diarrhea and belching. She is passing gas- no vomiting. No blood in stool. No one else at home has these symtoms. No chance of preganancy- LMP was last month. She is type 2 diabetic. Blood sugar has been 150s. Related Data Home Medications Medication Instructions Recorded Confirmed metformin 500 mg tablet 1,000 mg PO BID 08/21/19 12/08/21 insulin aspart U-100 100 unit/mL 100 sliding scale dose continuous 04/26/21 12/08/21 subcutaneous solution (Novolog subcutaneous infusion DIRECTED U-100 Insulin aspart) atorvastatin 80 mg tablet 40 tablet PO DAILY 09/28/21 12/08/21 buspirone 5 mg tablet 5 mg PO DAILY 12/01/21 12/08/21 dulaglutide 1.5 mg/0.5 mL 1.5 mg subcut WEEKLY 12/01/21 12/08/21 subcutaneous pen injector (Trulicity) cyclobenzaprine 5 mg tablet 5 mg DIRECTED 12/08/21 12/08/21 Allergies Allergy/AdvReac Type Severity Reaction Status Date / Time Penicillins Allergy Unknown Itching Verified 12/01/21 13:47 Sulfa (Sulfonamide Allergy Unknown Itching Verified 12/01/21 13:47 Antibiotics) Review of Systems Review of Systems: Pertinent positives per HPI. Patient denies any fever, chills, rash, headache, visual changes, dizziness, cough, runny nose, sore throat, shortness of breath, chest pain, palpitations, her daughter vomiting, constipation, or any urinary issues. [facility] Past Medical History Medical History Anxiety Diabetes mellitus, type II Social History Social History Smoking status: Never smoker Alcohol intake: never Gender identity (if verbalized by the patient): Female Comments At the time of my signature, I reviewed and agree with the nursing past medical, surgical, social, and family history. There is no relevant family history pertinent to the patient complaint. Exam Narrative: General: Well-developed, obese, in no apparent distress. Head: Normocephalic, atraumatic. Cardio: Regular rate and rhythm, s1 and s2 normal, no murmur appreciated. Resp: Clear to auscultation bilaterally, no rhonchi, rales, wheezing or rubs. Abdomen: Soft, pliable, bowel sounds present in all quadrants,tender to palpation over the left mid abdomen, mild guarding without rebound tenderness or radiating of pain, no organomegly, no CVAT tenderness. Course Course Emergency Course: Portions of this record may have been created with voice recognition software. Level of Care: Express Care Visit Vital Signs Vital signs: Vital signs reviewed MDM - Abdominal Pain MDM Narrative Medical decision making narrative: At the time of visit patient is resting comfortably on the exam table. Blood sugar was 133 at the time of visit. UA completed And was negative for any protein, ketones, infection, or blood. Obstructive x-ray series completed and showed normal gas pattern with a moderate amount of stool in the colon. I suspect the patient has gastroenteritis and will send in a prescription for some Levsin and Zofran for nausea. Supportive measures were discussed with the patient and recommend follow-up with her PCP if symptoms persist over the next few days to get some lab work/stool culture done. Patient voiced understanding of
[2021-12-08 12:35] VITALS: BP 136/86; PULSE 81; RESP 16; TEMP 36.7; O2SAT 97
[2021-12-08 12:51] LABS: Glucose Point of Care 133 mg/dl (65-105)
== END 2021-12-08 13:40 | disposition home or self-care (01) ==
PROVIDERS: Emergency Provider Nurse Practitioner Family; PCP Family Medicine
DX: R10.9 Unspecified abdominal pain (principal); R19.7 Diarrhea, unspecified; E11.9 Type 2 diabetes mellitus without complications; Z79.4 Long term (current) use of insulin; F41.9 Anxiety disorder, unspecified
CPT/HCPCS: 74018; 81003; 82948; 99213; G0463

== ENCOUNTER 2022-01-19 15:38 | Emergency (ER) | payer OTHER, MEDICAID, SELFPAY ==
--- NOTE | 2022-01-19 15:42 | ED.CHESTPAIN ---
HPI - Chest Pain General Stated Complaint: Chest Pain Time Seen by Provider: 01/19/22 15:59 Source: patient Mode of arrival: ambulatory Limitations: language barrier (Patient speaks limited Greenlandic, refuses an cam maker this time) History of Present Illness HPI narrative: 46-year-old female with history of poorly controlled diabetes presents with concern for 20 to 30-minute history of left arm numbness, weakness, chest pain and heaviness. She reports she had a headache this morning, reports her chest pain and left arm numbness are new symptoms. She reports however these are similar symptoms that she had in September when she was hospitalized for a CVA. She denies any current shortness of breath. She denies vision changes, difficulty speaking, difficulty swallowing MD complaint: chest pain and other (Left arm numbness ) Related Data Home Medications Medication Instructions Recorded Confirmed metformin 500 mg tablet 1,000 mg PO BID 08/21/19 12/08/21 insulin aspart U-100 100 unit/mL 100 sliding scale dose continuous 04/26/21 12/08/21 subcutaneous solution (Novolog subcutaneous infusion DIRECTED U-100 Insulin aspart) atorvastatin 80 mg tablet 40 tablet PO DAILY 09/28/21 12/08/21 buspirone 5 mg tablet 5 mg PO DAILY 12/01/21 12/08/21 dulaglutide 1.5 mg/0.5 mL 1.5 mg subcut WEEKLY 12/01/21 12/08/21 subcutaneous [facility] cyclobenzaprine 5 mg tablet 5 mg DIRECTED 12/08/21 12/08/21 Allergies Allergy/AdvReac Type Severity Reaction Status Date / Time Penicillins Allergy Unknown Itching Verified 01/19/22 16:01 Sulfa (Sulfonamide Allergy Unknown Itching Verified 01/19/22 16:01 Antibiotics) Review of Systems Review of Systems: CONSTITUTIONAL: Denies malaise, chills, sweats, or fever. EYES: Denies visual changes ENT: Denies rhinorrhea, congestion, sinus pain, otalgia or sore throat. CARDIOVASCULAR: Reports chest pain and heaviness Denies palpitations RESPIRATORY: Denies cough or dyspnea. GASTROINTESTINAL: Denies abdominal pain, nausea, vomiting. Reports diarrhea NEUROLOGIC: Reports left finger numbness, left arm weakness. Reports headache this morning All systems reviewed & are unremarkable except as noted in HPI and below PMFSH Past Medical History Medical History Anxiety Diabetes mellitus, type II Social History Social History Smoking status: Never smoker Alcohol intake: never Gender identity (if verbalized by the patient): Female Comments At time of signature, agree with nursing past medical, surgical, social and family history. There is no relevant family history pertinent to the presenting complaint Exam Narrative: GENERAL: Nontoxic appearing HEAD: Normocephalic EYES: PERRLA, EOMI. No nystagmus. ENT: Mucous membranes moist. NECK: Supple. CHEST: No respiratory distress. Clear to auscultation. No bony deformities, no asymmetry. Speaks in full sentences. HEART: Regular rate and rhythm. No murmur heard. Normal peripheral pulses. ASKIN: Warm, dry, no visible rash. NEURO: Alert and oriented x3. Left arm weakness noted. Difficult to get complete neuro exam, patient having trouble understanding commands PSYCH: Normal mood and affect Course Course Emergency Course: Patient is aware of, understands and agrees to be transferred to the emergency department via EMS. Portions of this record may have been created with voice recognition software Level of Care: Express Care Visit Vital Signs Vital signs: Reviewed. Patient has history of hypertension Transfer Transfered to: [facility]) Transportation: ALS Transfer rationale: History of CVA, left arm weakness and numbness Accepting physician: Tiarra MDM - Chest Pain MDM Narrative Medical decision making narrative: Exam findings warrant further evaluation in the emergency department marco
--- NOTE | 2022-01-19 15:44 | ECG_ITS ---
Measurements Intervals [place] Rate: 104 P: 33 SD: 104 QRS: 45 QRSD: 76 T: 54 QT: 345 QTc: 454 Interpretive Statements SINUS TACHYCARDIA WITH SHORT SD INTERVAL BASELINE ARTIFACT- I, II, III, V3, V6 BORDERLINE ECG COMPARISON TO PRIOR ECG 07-19-21 18:42 HR HAS INCREASED Electronically Signed On 01-19-2022 16:10:40 CDT by Luis Madison D.O.
[2022-01-19 15:45] VITALS: BP 167/81; PULSE 110; RESP 22; TEMP 36.7; O2SAT 99
[2022-01-19 15:57] LABS: Glucose Point of Care 203 mg/dl (65-105)
[2022-01-19 16:10] VITALS: BP 167/99; PULSE 108
== END 2022-01-19 16:10 | disposition short-term general hospital (02) ==
PROVIDERS: Emergency Provider Nurse Practitioner; PCP Family Medicine
DX: R20.0 Anesthesia of skin (principal); E11.9 Type 2 diabetes mellitus without complications; F41.9 Anxiety disorder, unspecified; Z79.84 Long term (current) use of oral hypoglycemic drugs
CPT/HCPCS: 82948; 93005; 99215; G0463

== ENCOUNTER 2022-03-07 14:40 | Emergency (ER) | payer OTHER, MEDICAID, SELFPAY ==
[2022-03-07 15:32] VITALS: BP 151/79; PULSE 100; RESP 18; TEMP 36.9; O2SAT 99
--- NOTE | 2022-03-07 17:08 | ED.URI ---
HPI - URI/Sore Throat General Chief Complaint: Upper Respiratory Infection Stated Complaint: nasal drip weakness cough Time Seen by Provider: 03/07/22 17:00 Source: patient, RN notes reviewed and old records reviewed Mode of arrival: ambulatory Limitations: no limitations History of Present Illness HPI Narrative: 47-YEAR-OLD FEMALE WHO PRESENTS TO [facility] CARE WITH COMPLAINTS 3 DAY HISTORY OF SINUS PRESSURE, NASAL CONGESTION, FRONTAL HEADACHE AND SORE THROAT, PATIENT HAS CLEAR TO LIGHT YELLOW NASAL DISCHARGE, NO FEVER NOTED.Patient has been taking Ibuprofen for her symptoms. MD elicited complaint: cough, sore throat, rhinorrhea, nasal congestion, sinus pain and other (headache) Onset (ago): day(s) (DAY 3 OF SYMPTOMS) Pain scale (0-10): 6 Able to tolerate fluids by mouth: Yes Treatments prior to arrival: ibuprofen Related Data Home Medications Medication Instructions Recorded Confirmed metformin 500 mg tablet 1,000 mg PO BID 08/21/19 03/07/22 insulin aspart U-100 100 unit/mL 100 sliding scale dose continuous 04/26/21 03/07/22 subcutaneous solution (Novolog subcutaneous infusion DIRECTED U-100 Insulin aspart) atorvastatin 80 mg tablet 40 tablet PO DAILY 09/28/21 03/07/22 buspirone 5 mg tablet 5 mg PO DAILY 12/01/21 03/07/22 dulaglutide 1.5 mg/0.5 mL 1.5 mg subcut WEEKLY 12/01/21 03/07/22 subcutaneous pen injector (Trulicity) Allergies Allergy/AdvReac Type Severity Reaction Status Date / Time Penicillins Allergy Unknown Itching Verified 03/07/22 15:47 Sulfa (Sulfonamide Allergy Unknown Itching Verified 03/07/22 15:47 Antibiotics) Review of Systems Review of Systems: CONSTITUTIONAL: REPORTS MALAISE chills, sweats, no known fever. EYES: Denies visual changes, redness, or discharge. ENT: Reports rhinorrhea, congestion, sinus pain,no otalgia positive for sore throat. CARDIOVASCULAR: Denies chest pain, palpitations, or edema. RESPIRATORY: Reports cough.? Denies dyspnea. GASTROINTESTINAL: Denies abdominal pain, nausea, vomiting, diarrhea SKIN: Denies rash or itching. MUSCULOSKELETAL:REPORTS myalgia. NEUROLOGIC: REPORTS headache. All systems reviewed & are unremarkable except as noted in HPI and below PMFSH Past Medical History Medical History Anxiety Diabetes mellitus, type II Social History Social History Smoking status: Never smoker Alcohol intake: never Gender identity (if verbalized by the patient): Female Comments At time of signature, agree with nursing past medical, surgical, social and family history. There is no relevant family history pertinent to the presenting complaint Exam Narrative: GENERAL: Well-appearing, well-nourished, and in no acute distress. HEAD: Normocephalic EYES: PERRLA, conjunctivae clear ENT: Nares clear, turbinates edematous and erythematous, clear to light yellow discharge. Mucous membranes moist. TM pearly dupont with dull light reflex bilaterally; no tragal tenderness. Oropharynx erythematous without lesions. Tonsils not enlarged and without exudate, no drooling, no hoarseness, no trismus, uvula midline. NECK: Supple. No lymphadenopathy CHEST: Clear to auscultation, breath sounds equal. No wheezing, rhonchi, rales, or stridor. No respiratory distress, speaks in full sentences.cough SAO2 99% on room air HEART: Regular rate and rhythm. No murmur heard. SKIN: Warm, dry, no rash. NEURO: Alert and oriented x3. PSYCH: Normal mood and affect Course Course Emergency Course: Patient is aware of diagnosis, understands and agrees to treatment plan.? Anticipatory guidance given.? Patient agrees to follow-up as directed and is aware of reasons to seek care at the emergency department. Portions of this record may have been created with voice recognition software Level of Care: Express Care Visit Vital Signs Vital signs: Vital Sig
--- NOTE | 2022-03-07 17:25 | ED.URI ---
HPI - URI/Sore Throat General Chief Complaint: Upper Respiratory Infection Stated Complaint: nasal drip weakness cough Time Seen by Provider: 03/07/22 17:25 Source: patient, RN notes reviewed and old records reviewed Mode of arrival: ambulatory Limitations: no limitations History of Present Illness HPI Narrative: 47-YEAR-OLD FEMALE WHO PRESENTS TO [facility] CARE WITH COMPLAINTS OF Related Data Home Medications Medication Instructions Recorded Confirmed metformin 500 mg tablet 1,000 mg PO BID 08/21/19 03/07/22 insulin aspart U-100 100 unit/mL 100 sliding scale dose continuous 04/26/21 03/07/22 subcutaneous solution (Novolog subcutaneous infusion DIRECTED U-100 Insulin aspart) atorvastatin 80 mg tablet 40 tablet PO DAILY 09/28/21 03/07/22 buspirone 5 mg tablet 5 mg PO DAILY 12/01/21 03/07/22 dulaglutide 1.5 mg/0.5 mL 1.5 mg subcut WEEKLY 12/01/21 03/07/22 subcutaneous pen injector (Trulicity) Allergies Allergy/AdvReac Type Severity Reaction Status Date / Time Penicillins Allergy Unknown Itching Verified 03/07/22 15:47 Sulfa (Sulfonamide Allergy Unknown Itching Verified 03/07/22 15:47 Antibiotics) [facility] Past Medical History Medical History Anxiety Diabetes mellitus, type II Social History Social History Smoking status: Never smoker Alcohol intake: never Gender identity (if verbalized by the patient): Female Course Vital Signs Vital signs: Vital Signs Temperature 36.9 C 03/07/22 15:32 Pulse Rate 100 03/07/22 15:32 Respiratory Rate 18 03/07/22 15:32 Blood Pressure 151/79 H 03/07/22 15:32 Pulse Oximetry 99 03/07/22 15:32 Oxygen Delivery Room Air 03/07/22 15:32 Temperature 36.9 C 03/07/22 15:32 Pulse Rate 100 03/07/22 15:32 Respiratory Rate 18 03/07/22 15:32 Blood Pressure 151/79 H 03/07/22 15:32 Pulse Oximetry 99 03/07/22 15:32 Oxygen Delivery Room Air 03/07/22 15:32 MDM - URI/Sore Throat Lab Data Labs: Influenza A Screen Positive Reference Range: Negative Influenza B Screen Negative Reference Range: Negative Strep Screen Presumptive Negative *(Reference Range: Negative)* Discharge Plan Discharge Clinical Impression: Influenza A Patient Disposition: Home, Self-Care Condition: Stable Instructions: Antibiotic Form Additional Instructions: INCREASE FLUIDS ESPECIALLY JUICES AND WATER [id number] COUGH AND COLD MEDICINE OF YOUR CHOICE FOR YOUR SYMPTOMS TYLENOL OR IBUPROFEN FOR ANY FEVER PAIN FLONASE NASAL SPRAY ZYRTEC OR CLARITIN DAILY OR SEB HEAT TO THE FACE 20-30 MINUTES 4-6 TIMES A DAY FOR PAIN SALT WATER GARGLES, THROAT LOZENGES OR THROAT SPRAYS DESIRED IF YOUR SYMPTOMS PERSIST, CHANGE OR WORSEN SIGNIFICANTLY BEFORE YOU CAN CONTACT YOUR PERSONAL PHYSICIAN THEN PLEASE, WITHOUT DELAY, GO TO THE EMERGENCY DEPARTMENT FOR FURTHER EVALUATION. FOLLOW-UP WITH PCP IN 7-10 DAYS OR SOONER IF NEEDED FOLLOW UP WITH PCP SOON IN REGARDS TO YOUR BLOOD PRESSURE WHICH IS ELEVATED ABOVE THRESHOLD FOR REFERRAL. BLOOD PRESSURE ABOVE 120/80 MAY INDICATE PRE-HYPERTENSION. Prescriptions: New Flonase Sensimist 27.5 mcg/actuation spray,suspension 2 spray intranasal DAILY Qty: 9.1 0RF Rx Instructions: into each nostril No Action metformin 500 mg Tablet 1,000 mg PO BID atorvastatin 80 mg tablet 40 tablet PO DAILY buspirone 5 mg Tablet 5 mg PO DAILY Trulicity 1.5 mg/0.5 mL Pen Injector 1.5 mg SUBCUT WEEKLY insulin aspart U-100 [Novolog U-100 Insulin aspart] 100 unit/mL solution 100 sliding scale dose continuous subcutaneous infusion DIRECTED Follow-up/Referrals: Jose R,Eb Henderson,
== END 2022-03-07 17:48 | disposition home or self-care (01) ==
PROVIDERS: Emergency Provider Registered Nurse; PCP Family Medicine
DX: J10.1 Influenza due to other identified influenza virus with other respiratory manifestations (principal); E11.9 Type 2 diabetes mellitus without complications; F41.9 Anxiety disorder, unspecified; Z79.4 Long term (current) use of insulin
CPT/HCPCS: 87081; 87804; 87880; 99213; G0463

== ENCOUNTER 2022-03-28 11:51 | Emergency (ER) | payer OTHER, MEDICAID, SELFPAY ==
[2022-03-28 12:06] VITALS: BP 147/75; PULSE 104; RESP 20; TEMP 36.3; O2SAT 99
--- NOTE | 2022-03-28 13:04 | ED.URI ---
HPI - URI/Sore Throat General Chief Complaint: Upper Respiratory Infection Stated Complaint: burning eyes and throat Time Seen by Provider: 03/28/22 13:00 Source: patient and RN notes reviewed Mode of arrival: ambulatory Limitations: no limitations History of Present Illness HPI Narrative: 47-year-old female presents with concern for burning eyes, runny nose, sore throat. Reports several day history of symptoms. Reports she got about 2 weeks ago. She denies fever, aches chills, sweats MD elicited complaint: rhinorrhea Related Data Home Medications Medication Instructions Recorded Confirmed metformin 500 mg tablet 1,000 mg PO BID 08/21/19 03/28/22 insulin aspart U-100 100 unit/mL 100 sliding scale dose continuous 04/26/21 03/28/22 subcutaneous solution (Novolog subcutaneous infusion DIRECTED U-100 Insulin aspart) atorvastatin 80 mg tablet 40 tablet PO DAILY 09/28/21 03/28/22 buspirone 5 mg tablet 5 mg PO DAILY 12/01/21 03/28/22 dulaglutide 1.5 mg/0.5 mL 1.5 mg subcut WEEKLY 12/01/21 03/28/22 subcutaneous pen injector (Trulicity) modafinil 200 mg tablet 200 mg PO DAILY 03/28/22 03/28/22 topiramate 25 mg tablet 25 mg PO DAILY 03/28/22 03/28/22 Allergies Allergy/AdvReac Type Severity Reaction Status Date / Time Penicillins Allergy Unknown Itching Verified 03/28/22 12:28 Sulfa (Sulfonamide Allergy Unknown Itching Verified 03/28/22 12:28 Antibiotics) Review of Systems Review of Systems: CONSTITUTIONAL: Denies malaise, chills, sweats, or fever. EYES: Denies visual changes, redness, or discharge. Reports itchy eyes ENT: Reports rhinorrhea, congestion, itchy ears. Denies sinus pain, otalgia and sore throat. CARDIOVASCULAR: Denies chest pain, palpitations, or edema. RESPIRATORY: Reports patient cough. Denies dyspnea. GASTROINTESTINAL: Denies abdominal pain, nausea, vomiting, diarrhea SKIN: Denies rash or itching. MUSCULOSKELETAL: Denies myalgia. NEUROLOGIC: Denies headache. All systems reviewed & are unremarkable except as noted in HPI and below PMFSH Past Medical History Medical History Anxiety Diabetes mellitus, type II Social History Social History Smoking status: Never smoker Alcohol intake: never Gender identity (if verbalized by the patient): Female Comments At time of signature, agree with nursing past medical, surgical, social and family history. There is no relevant family history pertinent to the presenting complaint Exam Narrative: GENERAL: Well-appearing, well-nourished, and in no acute distress. HEAD: Normocephalic EYES: PERRLA, conjunctivae clear ENT: Nares clear, turbinates edematous and erythematous, clear discharge. Mucous membranes moist. TM pearly dupont with discharge light reflex bilaterally; no tragal tenderness. Oropharynx not erythematous without lesions. Tonsils not enlarged and without exudate, no drooling, no hoarseness, no trismus, uvula midline. NECK: Supple. No lymphadenopathy CHEST: Clear to auscultation, breath sounds equal. No wheezing, rhonchi, rales, or stridor. No respiratory distress, speaks in full sentences. HEART: Regular rate and rhythm. No murmur heard. SKIN: Warm, dry, no rash. NEURO: Alert and oriented x3. PSYCH: Normal mood and affect Course Course Emergency Course: Patient is aware of diagnosis, understands and agrees to treatment plan. Anticipatory guidance given. Patient agrees to follow-up as directed and is aware of reasons to seek care at the emergency department. Portions of this record may have been created with voice recognition software Level of Care: Express Care Visit Vital Signs Vital signs: Vital Signs Temperature 97.4 F L 03/28/22 12:06 Pulse Rate 104 H 03/28/22 12:06 Respiratory Rate 20 03/28/22 12:06 Blood Pressure 147/75 H 03/28/22 12:06 Pulse Oximetry 99 03/28/22 12:06 Oxygen Delivery Room Air 11
== END 2022-03-28 13:20 | disposition home or self-care (01) ==
PROVIDERS: Emergency Provider Nurse Practitioner; PCP Family Medicine
DX: J32.9 Chronic sinusitis, unspecified (principal); E11.9 Type 2 diabetes mellitus without complications; F41.9 Anxiety disorder, unspecified; Z79.84 Long term (current) use of oral hypoglycemic drugs; Z79.4 Long term (current) use of insulin
CPT/HCPCS: 99213; G0463

== ENCOUNTER 2022-05-03 16:09 | Emergency (ER) | payer OTHER, MEDICAID, SELFPAY ==
[2022-05-03 16:14] VITALS: BP 139/88; PULSE 107; RESP 20; TEMP 36.9; O2SAT 99
--- NOTE | 2022-05-03 16:31 | ED.URI ---
HPI - URI/Sore Throat General Chief Complaint: Upper Respiratory Infection Stated Complaint: cold flu Time Seen by Provider: 05/03/22 16:32 Source: patient and RN notes reviewed Mode of arrival: ambulatory Limitations: no limitations History of Present Illness HPI Narrative: 47-year-old female with history of diabetes presents with concern for nasal congestion, cough, headache, low-grade temperature, diarrhea that started yesterday. She denies known sick contacts. She denies taking any medications for her symptoms. She denies a raise in her blood sugar. She reports Pepto-Bismol helps her diarrhea MD elicited complaint: cough and nasal congestion Related Data Home Medications Medication Instructions Recorded Confirmed metformin 500 mg tablet 1,000 mg PO BID 08/21/19 05/03/22 insulin aspart U-100 100 unit/mL 100 sliding scale dose continuous 04/26/21 05/03/22 subcutaneous solution (Novolog subcutaneous infusion DIRECTED U-100 Insulin aspart) atorvastatin 80 mg tablet 40 tablet PO DAILY 09/28/21 05/03/22 buspirone 5 mg tablet 5 mg PO DAILY 12/01/21 05/03/22 dulaglutide 1.5 mg/0.5 mL 1.5 mg subcut WEEKLY 12/01/21 05/03/22 subcutaneous pen injector (Trulicity) modafinil 200 mg tablet 200 mg PO DAILY 03/28/22 05/03/22 topiramate 25 mg tablet 25 mg PO DAILY 03/28/22 05/03/22 Allergies Allergy/AdvReac Type Severity Reaction Status Date / Time Penicillins Allergy Unknown Itching Verified 05/03/22 16:20 Sulfa (Sulfonamide Allergy Unknown Itching Verified 05/03/22 16:20 Antibiotics) Review of Systems Review of Systems: CONSTITUTIONAL: Reports malaise, fever. EYES: Denies visual changes, redness, or discharge. ENT: Reports rhinorrhea, congestion. Denies sinus pain, otalgia and sore throat. CARDIOVASCULAR: Denies chest pain, palpitations, or edema. RESPIRATORY: Reports cough. Denies dyspnea. GASTROINTESTINAL: Denies abdominal pain, nausea, vomiting, diarrhea SKIN: Denies rash or itching. MUSCULOSKELETAL: Denies myalgia. NEUROLOGIC: Reports headache. All systems reviewed & are unremarkable except as noted in HPI and below PMFSH Past Medical History Medical History Anxiety Diabetes mellitus, type II Social History Social History Smoking status: Never smoker Alcohol intake: never Gender identity (if verbalized by the patient): Female Comments At time of signature, agree with nursing past medical, surgical, social and family history. There is no relevant family history pertinent to the presenting complaint Exam Narrative: GENERAL: Well-appearing, well-nourished, and in no acute distress. HEAD: Normocephalic EYES: PERRLA, conjunctivae clear ENT: Nares clear, turbinates edematous and erythematous, clear discharge. Mucous membranes moist. TM pearly dupont with dull light reflex bilaterally; no tragal tenderness. Oropharynx not erythematous without lesions. Tonsils not enlarged and without exudate, no drooling, no hoarseness, no trismus, uvula midline. NECK: Supple. No lymphadenopathy CHEST: Clear to auscultation, breath sounds equal. No wheezing, rhonchi, rales, or stridor. No respiratory distress, speaks in full sentences. HEART: Regular rate and rhythm. No murmur heard. SKIN: Warm, dry, no rash. NEURO: Alert and oriented x3. PSYCH: Normal mood and affect Course Course Emergency Course: Patient is aware of diagnosis, understands and agrees to treatment plan. Anticipatory guidance given. Patient agrees to follow-up as directed and is aware of reasons to seek care at the emergency department. Portions of this record may have been created with voice recognition software Level of Care: Express Care Visit Vital Signs Vital signs: Vital Signs Temperature 98.4 F 05/03/22 16:14 Pulse Rate 107 H 05/03/22 16:14 Respiratory Rate 20 05/03/22 16:14 Blood Pressure 139/88 05/03/22 16:
== END 2022-05-03 16:49 | disposition home or self-care (01) ==
PROVIDERS: Emergency Provider Nurse Practitioner; PCP Family Medicine
DX: J11.1 Influenza due to unidentified influenza virus with other respiratory manifestations (principal); Z20.822 Contact with and (suspected) exposure to COVID-19; E11.9 Type 2 diabetes mellitus without complications; Z79.4 Long term (current) use of insulin; Z79.84 Long term (current) use of oral hypoglycemic drugs; F41.9 Anxiety disorder, unspecified
CPT/HCPCS: 87426; 87804; 99213; C9803; G0463

== ENCOUNTER 2022-10-07 14:20 | Emergency (ER) | payer OTHER, MEDICAID, SELFPAY ==
[2022-10-07 14:29] VITALS: BP 132/78; PULSE 86; RESP 16; TEMP 36.9; O2SAT 99
--- NOTE | 2022-10-07 14:42 | ED.LOWEXIN ---
HPI - Extremity Injury (Lower) General Chief Complaint: Extremity Injury, Lower Stated Complaint: Fall Injury/Both Leg Injury Source: patient and RN notes reviewed Limitations: no limitations History of Present Illness HPI Narrative: Patient is a 47-year-old female who presents to the [facility] after a fall that occurred this morning. Patient states that she lost her footing falling down 3 steps. She presents with an abrasion to the left anterior lower leg. Bleeding is controlled. Patient states that she was walking at [employer] when the fall occurred. 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 She was advised by ambulance and come get checked out. Patient denies hitting her head or loss of consciousness during the fall. She denies any other injury. Denies numbness. Sensation intact. Pulses are present. She has full range of motion of her left leg. Related Data Home Medications Medication Instructions Recorded Confirmed metformin 500 mg tablet 1,000 mg PO BID 08/21/19 05/03/22 insulin aspart U-100 100 unit/mL 100 sliding scale dose continuous 04/26/21 05/03/22 subcutaneous solution (Novolog subcutaneous infusion DIRECTED U-100 Insulin aspart) atorvastatin 80 mg tablet 40 tablet PO DAILY 09/28/21 05/03/22 buspirone 5 mg tablet 5 mg PO DAILY 12/01/21 10/07/22 dulaglutide 1.5 mg/0.5 mL 1.5 mg subcut WEEKLY 12/01/21 10/07/22 subcutaneous pen injector (Trulicity) modafinil 200 mg tablet 200 mg PO DAILY 03/28/22 05/03/22 topiramate 25 mg tablet 25 mg PO DAILY 03/28/22 05/03/22 losartan 25 mg tablet 25 mg PO DAILY 10/07/22 10/07/22 Allergies Allergy/AdvReac Type Severity Reaction Status Date / Time Penicillins Allergy Unknown Itching Verified 10/07/22 14:35 Sulfa (Sulfonamide Allergy Unknown Itching Verified 10/07/22 14:35 Antibiotics) Review of Systems Review of Systems: CONSTITUTIONAL: Denies fever, chills, or sweats. EYES: Denies visual changes, redness, or discharge. ENT: Denies otalgia and sore throat CARDIOVASCULAR: Denies chest pain, palpitations, or edema. RESPIRATORY: Denies cough or dyspnea. GASTROINTESTINAL: Denies abdominal pain, nausea, vomiting, or diarrhea. GENITOURINARY: Denies dysuria or hematuria. SKIN: Denies rash or itching. Abrasion to left anterior lower leg. MUSCULOSKELETAL: Denies back pain or joint pain. NEUROLOGIC: Denies headache, numbness, or weakness. Pertinent positives per HPI. [facility] Past Medical History Medical History Anxiety Diabetes mellitus, type II Social History Social History Smoking status: Never smoker Alcohol intake: never Gender identity (if verbalized by the patient): Female Comments At the time of my signature, I reviewed and agree with the nursing past medical, surgical, social, and family history. There is no relevant family history pertinent to the patient complaint. Exam Narrative: GENERAL: This is a well-nourished, well-developed patient, in no apparent distress. HEAD: normocephalic, atraumatic. EYES: Sclera clear/white. Vision is grossly intact. EARS: External ears normal, auditory canals clear and without drainage. Hearing grossly intact. NOSE: External nose normal with no obvious nasal discharge, nares without redness, no rhinorrhea. THROAT: Mucous membranes moist, posterior pharynx clear. NECK: Neck supple, non-tender without lymphadenopathy, masses or thyromegaly. CARDIOVASCULAR: Regular rate and rhythm without murmurs, gallops, or rubs. RESPIRATORY: Clear to auscultation. Breath sounds equal bilaterally. No wheezes, rales, or rhonchi. GASTROINTESTINAL: Abdomen soft, non-tender, nondistended. Bowel sounds are active. No hepato-splenomegaly, or palpable masses. No guarding. SKIN: Abrasion to left anterior lower leg; bleeding controlled. Sensation intact distal to the injury. NEURO: awake, alert, and oriented to person, place
== END 2022-10-07 14:53 | disposition home or self-care (01) ==
PROVIDERS: Emergency Provider Nurse Practitioner; PCP Family Medicine
DX: S80.812A Abrasion, left lower leg, initial encounter (principal); W10.9XXA Fall (on) (from) unspecified stairs and steps, initial encounter; F41.9 Anxiety disorder, unspecified; E11.9 Type 2 diabetes mellitus without complications; Z79.84 Long term (current) use of oral hypoglycemic drugs; Z79.4 Long term (current) use of insulin
CPT/HCPCS: 99212; G0463

== ENCOUNTER 2022-10-30 16:59 | Emergency (ER) | payer OTHER, MEDICAID, SELFPAY ==
--- NOTE | ~2022-10-30 | XR_ITS ---
Left ankle Technique: AP, oblique, and lateral views were obtained. Clinical History: Pain Findings: No acute fracture or dislocation is seen. Osseous alignment is anatomic. Ankle mortise and other visualized joint spaces are preserved. Plantar calcaneal spur noted. Soft tissues are otherwise unremarkable. Impression: No fracture or dislocation. Reviewed, dictated and finalized at location . Impression: No fracture or dislocation.
[2022-10-30 17:06] VITALS: BP 148/82; PULSE 86; RESP 16; TEMP 36.6; O2SAT 98
--- NOTE | 2022-10-30 18:06 | ED.GENADULT ---
HPI - General Adult General Chief complaint: Extremity Injury, Lower Stated complaint: Left Ankle Injury Source: patient and family Mode of arrival: ambulatory Limitations: language barrier History of Present Illness HPI narrative: Patient presents for evaluation of left ankle pain. 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 Patient, her and daughter were delivering packages today. Patient was approaching a home and did not see dog at the residence. Her daughter got out of the vehicle to warn her and pt twisted her left ankle and fell to the ground. She now has pain that she rates as ?100? on a scale of 1-10 in the left ankle. No radicular component. No paresthesias. Movement makes her pain worse. She is able to bear weight. No other injuries. She has not taken any medication for symptoms. Her daughter is being evaluated here as well as she sustained a dog bite during the event of interest. Related Data Home Medications Medication Instructions Recorded Confirmed insulin aspart U-100 100 unit/mL 100 sliding scale dose continuous 04/26/21 10/30/22 subcutaneous solution (Novolog subcutaneous infusion DIRECTED U-100 Insulin aspart) atorvastatin 80 mg tablet 40 tablet PO DAILY 09/28/21 10/30/22 buspirone 5 mg tablet 5 mg PO DAILY 12/01/21 10/30/22 dulaglutide 1.5 mg/0.5 mL 1.5 mg subcut WEEKLY 12/01/21 10/30/22 subcutaneous pen injector ([facility]) modafinil 200 mg tablet 200 mg PO DAILY 03/28/22 10/30/22 losartan 25 mg tablet 25 mg PO DAILY 10/07/22 10/30/22 meloxicam 7.5 mg tablet 7.5 mg PO BID 10/07/22 10/30/22 blood-glucose sensor (Dexcom G6 10/30/22 10/30/22 Sensor device) metformin 1,000 mg tablet 1,000 mg PO BID 10/30/22 10/30/22 Allergies Allergy/AdvReac Type Severity Reaction Status Date / Time Penicillins Allergy Unknown Itching Verified 10/30/22 17:35 Sulfa (Sulfonamide Allergy Unknown Itching Verified 10/30/22 17:35 Antibiotics) Review of Systems Review of Systems: CONSTITUTIONAL: Denies fever, chills, or sweats. EYES: Denies visual changes, redness, or discharge. ENT: Denies rhinorrhea, congestion, sore throat, or otalgia. CARDIOVASCULAR: Denies chest pain, palpitations, or edema. RESPIRATORY: Denies cough or dyspnea. GASTROINTESTINAL: Denies abdominal pain, nausea, vomiting, or diarrhea. GENITOURINARY: Denies dysuria or hematuria. SKIN: Denies rash or itching. MUSCULOSKELETAL: Reports left ankle pain. Denies other joint pain. NEUROLOGIC: Denies headache, numbness, dizziness, or weakness. PSYCHIATRIC: Denies anxiety or depression. [facility] Past Medical History Medical History (Updated 10/30/22 @ 18:21 by Girish Abel [facility], ) Anxiety Diabetes mellitus, type II Hyperlipidemia Hypertension Left ankle sprain Narcolepsy Surgical History Surgical History H/O left knee surgery Family History Family History Mother Family history non-contributory Social History Social History Smoking status: Never smoker Alcohol intake: never Substance use: never Additional living arrangements comments: Works for [employer] Gender identity (if verbalized by the patient): Female Sexual Orientation (if Verbalized by the Patient): Straight or Heterosexual Spiritual care concerns: No Exam Narrative: GENERAL: Well-appearing, well-nourished, and in no acute distress. HEAD: Normocephalic, atraumatic. EYES: PERRLA and EOMI. ENT: Nares clear, no rhinorrhea or epistaxis. Mucous membranes moist. Oropharynx without tonsillar hypertrophy exudate or other lesions. Bilateral TMs pearly dupont nonbulging NECK: Supple. No adenopathy or masses. No carotid bruits or JVD CHEST: Clear to auscultation. No respiratory distress. No wheezes rales or rhonchi HEART: Regular rate and rhythm. No murmur
== END 2022-10-30 18:05 | disposition home or self-care (01) ==
PROVIDERS: Emergency Provider Nurse Practitioner; PCP Family Medicine
DX: S93.402A Sprain of unspecified ligament of left ankle, initial encounter (principal); X50.9XXA Other and unspecified overexertion or strenuous movements or postures, initial encounter; Y99.0 Civilian activity done for income or pay; E11.9 Type 2 diabetes mellitus without complications; E78.5 Hyperlipidemia, unspecified; I10 Essential (primary) hypertension; G47.419 Narcolepsy without cataplexy; F41.9 Anxiety disorder, unspecified; Z79.4 Long term (current) use of insulin; Z79.84 Long term (current) use of oral hypoglycemic drugs
CPT/HCPCS: 73610; 99213; G0463

== ENCOUNTER 2022-11-10 13:35 | Emergency (ER) | payer OTHER, MEDICAID, SELFPAY ==
[2022-11-10 13:38] VITALS: BP 156/74; PULSE 88; RESP 20; TEMP 36.6; O2SAT 98
--- NOTE | 2022-11-10 13:55 | ECG_ITS ---
Measurements Intervals [place] Rate: 90 P: 52 NE: 135 QRS: 45 QRSD: 85 T: 52 QT: 351 QTc: 431 Interpretive Statements SINUS RHYTHM WITH SINUS ARRHYTHMIA NORMAL ECG COMPARED TO ECG 01/19/2022 15:54:21 SINUS RHYTHM NOW PRESENT SINUS ARRHYTHMIA NOW PRESENT Electronically Signed On 11-10-2022 14:18:51 CDT by Luis Madison D.O.
--- NOTE | 2022-11-10 13:56 | ED.CHESTPAIN ---
HPI - Chest Pain General Chief Complaint: Chest Pain Stated Complaint: Chest Pain Time Seen by Provider: 11/10/22 13:56 Source: patient Mode of arrival: ambulatory Limitations: no limitations History of Present Illness HPI narrative: 47-year-old female history of CVA and diabetes presented for complaint of chest pain and left arm pain with numbness and weakness today. States she woke today with left arm pain, and about 30 minutes prior to arrival she felt chest pain and could not lift left arm due to pain. She states she had left-sided weakness since her CVA a few months ago, but when she went to work this morning she noted she was unable to lift the arm as she had been previously. Also reports she cannot remember things today, reports headache and blurred vision, and feels tired, stating these are similar symptoms as when she was diagnosed with a stroke a few months ago. Patient was able to eat breakfast and was in normal state of health prior to going to work. Patient recently wore a playground monitor which was removed yesterday. Scheduled to f/u with cigar roller tomorrow. 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 Related Data Home Medications Medication Instructions Recorded Confirmed insulin aspart U-100 100 unit/mL 100 sliding scale dose continuous 04/26/21 10/30/22 subcutaneous solution (Novolog subcutaneous infusion DIRECTED U-100 Insulin aspart) atorvastatin 80 mg tablet 40 tablet PO DAILY 09/28/21 10/30/22 buspirone 5 mg tablet 5 mg PO DAILY 12/01/21 10/30/22 dulaglutide 1.5 mg/0.5 mL 1.5 mg subcut WEEKLY 12/01/21 10/30/22 subcutaneous pen injector ([facility]) modafinil 200 mg tablet 200 mg PO DAILY 03/28/22 10/30/22 losartan 25 mg tablet 25 mg PO DAILY 10/07/22 10/30/22 meloxicam 7.5 mg tablet 7.5 mg PO BID 10/07/22 10/30/22 blood-glucose sensor (Dexcom G6 10/30/22 10/30/22 Sensor device) metformin 1,000 mg tablet 1,000 mg PO BID 10/30/22 10/30/22 Allergies Allergy/AdvReac Type Severity Reaction Status Date / Time Penicillins Allergy Unknown Itching Verified 10/30/22 17:35 Sulfa (Sulfonamide Allergy Unknown Itching Verified 10/30/22 17:35 Antibiotics) Review of Systems Review of Systems: CONSTITUTIONAL: Denies body aches, fever, chills, or sweats. EYES: Reports visual changes, denies redness, or discharge. ENT: Denies rhinorrhea, congestion, sore throat, or otalgia. CARDIOVASCULAR: Reports chest pain, Denies palpitations, or edema. RESPIRATORY: Denies cough or dyspnea. GASTROINTESTINAL: Denies abdominal pain, nausea, vomiting, or diarrhea. GENITOURINARY: Denies dysuria or hematuria. SKIN: Denies rash, itching, or wounds. MUSCULOSKELETAL: Reports left arm pain Denies back pain, joint pain, or myalgia. NEUROLOGIC: reports headache, LUE numbness, weakness. All systems reviewed & are unremarkable except as noted in HPI and below PMFSH Past Medical History Medical History Anxiety Diabetes mellitus, type II Hyperlipidemia Hypertension Left ankle sprain Narcolepsy Surgical History Surgical History H/O left knee surgery Family History Family History Mother Family history non-contributory Social History Social History Smoking status: Never smoker Alcohol intake: never Substance use: never Additional living arrangements comments: Works for [employer] Gender identity (if verbalized by the patient): Female Sexual Orientation (if Verbalized by the Patient): Straight or Heterosexual Spiritual care concerns: No Comments At time of signature, I have reviewed and agree with nursing past medical, surgical, social and family history unless otherwise noted. Please see nursing chart for further information. There is no relevan
--- NOTE | 2022-11-10 14:29 | PC.NURSE ---
CONDEMNATION ENGINEER in to see patient. Still with pain. Skin W/D with no SOB. Very tearful. Arrangements made for transfer to [facility]. Ambulance called. Continues to be stable.
== END 2022-11-10 14:34 | disposition short-term general hospital (02) ==
PROVIDERS: Emergency Provider Nurse Practitioner Family
DX: R07.9 Chest pain, unspecified (principal); E11.9 Type 2 diabetes mellitus without complications; E78.5 Hyperlipidemia, unspecified; I10 Essential (primary) hypertension; F41.9 Anxiety disorder, unspecified; Z79.4 Long term (current) use of insulin; G47.419 Narcolepsy without cataplexy
CPT/HCPCS: 93005; 99215; G0463

== ENCOUNTER 2022-12-26 19:03 | Emergency (ER) | payer OTHER, MEDICAID, SELFPAY ==
[2022-12-26 19:08] VITALS: BP 139/80; PULSE 110; RESP 20; TEMP 36.5; O2SAT 100
--- NOTE | 2022-12-26 19:26 | ED.GENADULT ---
HPI - General Adult General Stated complaint: work sent her to check blood sugar Time Seen by Provider: 12/26/22 19:29 Mode of arrival: ambulatory Limitations: no limitations History of Present Illness HPI narrative: 47-year-old female presents with concern for blood sugar, headache, seeing spots in her vision. She reports the symptoms started this morning at work. Patient reports these are symptoms similar that she was having when she had a stroke. She reports she has been under lot of stress lately. She denies weakness in any extremity, difficulty speaking or difficulty swallowing MD complaint: Headache Related Data Home Medications Medication Instructions Recorded Confirmed insulin aspart U-100 100 unit/mL 100 sliding scale dose continuous 04/26/21 12/26/22 subcutaneous solution (Novolog subcutaneous infusion DIRECTED U-100 Insulin aspart) atorvastatin 80 mg tablet 40 tablet PO DAILY 09/28/21 12/26/22 buspirone 5 mg tablet 5 mg PO DAILY 12/01/21 12/26/22 dulaglutide 1.5 mg/0.5 mL 1.5 mg subcut WEEKLY 12/01/21 12/26/22 subcutaneous pen injector ([employer]) modafinil 200 mg tablet 200 mg PO DAILY 03/28/22 12/26/22 losartan 25 mg tablet 25 mg PO DAILY 10/07/22 12/26/22 blood-glucose sensor (Dexcom G6 10/30/22 12/26/22 Sensor device) Allergies Allergy/AdvReac Type Severity Reaction Status Date / Time Penicillins Allergy Unknown Itching Verified 12/26/22 19:28 Sulfa (Sulfonamide Allergy Unknown Itching Verified 12/26/22 19:28 Antibiotics) Review of Systems Review of Systems: CONSTITUTIONAL: Denies malaise, chills, sweats, or fever. EYES: Reports seeing spots in vision CARDIOVASCULAR: Reports chest pain RESPIRATORY: Denies cough or dyspnea. GASTROINTESTINAL: Denies abdominal pain, nausea, vomiting, diarrhea NEUROLOGIC: Denies numbness, weakness. Reports headache. PSYCHIATRIC: Reports stress All systems reviewed & are unremarkable except as noted in HPI and below PMFSH Past Medical History Medical History Anxiety Diabetes mellitus, type II Hyperlipidemia Hypertension Left ankle sprain Narcolepsy Surgical History Surgical History H/O left knee surgery Family History Family History Mother Family history non-contributory Social History Social History Smoking status: Never smoker Alcohol intake: never Substance use: never Additional living arrangements comments: Works for [employer] Gender identity (if verbalized by the patient): Female Sexual Orientation (if Verbalized by the Patient): Straight or Heterosexual Spiritual care concerns: No Comments At time of signature, agree with nursing past medical, surgical, social and family history. There is no relevant family history pertinent to the presenting complaint Exam Narrative: GENERAL: Nontoxic-appearing and in no acute distress. HEAD: Normocephalic, atraumatic. Difficulty with RLR, other garcia of vision normal EYES: PERRLA, sclera clear, and EOMI. No nystagmus. ENT: Mucous membranes moist. NECK: Supple. CHEST: No respiratory distress. Clear to auscultation. No bony deformities, no asymmetry. Speaks in full sentences. HEART: Regular rate and rhythm. Normal peripheral pulses. EXTREMITIES: Equal strength and upper extremity SKIN: Warm, dry, no visible rash. NEURO: Alert and oriented x3. PSYCH: Normal mood and affect Course Course Emergency Course: Patient is aware of, understands and agrees to be transferred to the emergency room. Portions of this record may have been created with voice recognition software Level of Care: Express Care Visit Vital Signs Vital signs: Vital Signs Temperature 97.7 F 12/26/22 19:08 Pulse Rate 110 H 12/26/22 19:08 Respiratory Rate 2
[2022-12-27 12:29] LABS: Glucose Point of Care 255 mg/dl (65-105)
== END 2022-12-26 19:50 | disposition short-term general hospital (02) ==
PROVIDERS: Emergency Provider Nurse Practitioner; PCP Family Medicine
DX: H53.8 Other visual disturbances (principal); E11.9 Type 2 diabetes mellitus without complications; Z79.84 Long term (current) use of oral hypoglycemic drugs; E78.5 Hyperlipidemia, unspecified; I10 Essential (primary) hypertension; F41.9 Anxiety disorder, unspecified
CPT/HCPCS: 82948; 99215; G0463

== ENCOUNTER 2023-02-13 14:13 | Emergency (ER) | payer OTHER, MEDICAID, SELFPAY ==
[2023-02-13 14:20] VITALS: BP 133/86; PULSE 81; RESP 16; TEMP 36.4; O2SAT 99
--- NOTE | 2023-02-13 14:55 | ED.GENADULT ---
HPI - General Adult General Chief complaint: Headache Stated complaint: Headache/Blood Sugar Problem Time Seen by Provider: 02/13/23 14:45 Source: patient, RN notes reviewed and old records reviewed Mode of arrival: ambulatory Limitations: language barrier (patient understands some French speaks French) History of Present Illness HPI narrative: 48 year old female accompanied by daughter who translates for her presents to express care with complaints of blood sugar being elevated to 450 at 0400 this morning, reports that she took correction dose on her insulin pump after she ate breakfast and it was done to 150. Patient states she has a slight headache discomfort rates it a 2/10. Patient reports that she didn't overeat last night not sure why glucose so high, presently on her Dexcom it reports 147 reading. Patient also complaining of rash on her neck from a necklace she wore requesting lotion for rash on neck, fine red itching rash on left side of neck. MD complaint: blood sugar elevated this morning but 147 now, rash on neck slight headache Onset (ago): day(s) (today) Severity scale (1-10): 2 Treatments prior to arrival: other (on insulin pump) Related Data Home Medications Medication Instructions Recorded Confirmed insulin aspart U-100 100 unit/mL 100 sliding scale dose continuous 04/26/21 02/13/23 subcutaneous solution (Novolog subcutaneous infusion DIRECTED U-100 Insulin aspart) atorvastatin 80 mg tablet 40 tablet PO DAILY 09/28/21 02/13/23 buspirone 5 mg tablet 5 mg PO DAILY 12/01/21 02/13/23 dulaglutide 1.5 mg/0.5 mL 1.5 mg subcut WEEKLY 12/01/21 02/13/23 [facility] modafinil 200 mg tablet 200 mg PO DAILY 03/28/22 02/13/23 losartan 25 mg tablet 25 mg PO DAILY 10/07/22 02/13/23 blood-glucose sensor (Dexcom G6 10/30/22 12/26/22 Sensor device) Allergies Allergy/AdvReac Type Severity Reaction Status Date / Time Penicillins Allergy Unknown Itching Verified 02/13/23 14:33 Sulfa (Sulfonamide Allergy Unknown Itching Verified 02/13/23 14:33 Antibiotics) Review of Systems Review of Systems: CONSTITUTIONAL: Denies fever, chills, or sweats. EYES: Denies visual changes, redness, or discharge. ENT: Denies rhinorrhea, congestion, sore throat, or otalgia. CARDIOVASCULAR: Denies chest pain, palpitations, or edema. RESPIRATORY: Denies cough or dyspnea. GASTROINTESTINAL: Denies abdominal pain, nausea, vomiting, or diarrhea. GENITOURINARY: Denies dysuria or hematuria. SKIN: Reports rash on neck with itching. MUSCULOSKELETAL: Denies back pain, joint pain, or myalgia. NEUROLOGIC: Reports slight headache,no numbness, or weakness, reports blood sugar elevation early this morning now 147 per Dexcom. PSYCHIATRIC: Reports anxiety or depression. All systems reviewed & are unremarkable except as noted in HPI and below PMFSH Past Medical History Medical History Anxiety Diabetes mellitus, type II Hyperlipidemia Hypertension Left ankle sprain Narcolepsy Surgical History Surgical History H/O left knee surgery Family History Family History Mother Family history non-contributory Social History Social History Smoking status: Never smoker Alcohol intake: never Substance use: never Additional living arrangements comments: Works for [employer] Gender identity (if verbalized by the patient): Female Sexual Orientation (if Verbalized by the Patient): Straight or Heterosexual Spiritual care concerns: No Comments At time of signature, agree with nursing past medical, surgical, social and family history. There is no relevant family history pertinent to the presenting complaint Exam Narrative: GENERAL: Well-appearing, well-nourished, and in no acute distress
== END 2023-02-13 15:24 | disposition home or self-care (01) ==
PROVIDERS: Emergency Provider Registered Nurse; PCP Family Medicine
DX: R21 Rash and other nonspecific skin eruption (principal); E11.65 Type 2 diabetes mellitus with hyperglycemia; E78.5 Hyperlipidemia, unspecified; I10 Essential (primary) hypertension; Z79.4 Long term (current) use of insulin; Z79.899 Other long term (current) drug therapy
CPT/HCPCS: 99213; G0463

== ENCOUNTER 2023-09-03 15:10 | Emergency (ER) | payer OTHER, MEDICAID, SELFPAY ==
[2023-09-03 15:19] VITALS: BP 139/72; PULSE 93; RESP 16; TEMP 36.3; O2SAT 100
--- NOTE | 2023-09-03 15:40 | ED.BACK ---
HPI - Back Pain/Injury General Chief Complaint: Back Pain/Injury Stated Complaint: Back Pain History of Present Illness HPI Narrative: Patient presents with low back pain. Patient denies any new injury patient is here requesting something for pain. Patient was folding clothes and thinks she must have twisted wrong now has pain in her left lower back. No numbness or tingling no saddle anesthesia no bowel or bladder problems. Patient is currently under the care for sciatica by her PCP and is to start physical therapy next week for this. Related Data Home Medications Medication Instructions Recorded Confirmed insulin aspart U-100 100 unit/mL 100 sliding scale dose continuous 04/26/21 02/13/23 subcutaneous solution (Novolog subcutaneous infusion DIRECTED U-100 Insulin aspart) atorvastatin 80 mg tablet 40 tablet PO DAILY 09/28/21 02/13/23 buspirone 5 mg tablet 5 mg PO DAILY 12/01/21 02/13/23 dulaglutide 1.5 mg/0.5 mL 1.5 mg subcut WEEKLY 12/01/21 02/13/23 subcutaneous pen injector ([employer]) modafinil 200 mg tablet 200 mg PO DAILY 03/28/22 02/13/23 losartan 25 mg tablet 25 mg PO DAILY 10/07/22 02/13/23 blood-glucose sensor (Dexcom G6 10/30/22 12/26/22 Sensor device) famotidine 20 mg tablet mg 09/03/23 fluoxetine 20 mg capsule mg 09/03/23 hydrocodone 5 mg-acetaminophen 325 tablet 09/03/23 mg tablet metoprolol succinate 25 mg mg PO 09/03/23 09/03/23 tablet,extended release 24 hr Allergies Allergy/AdvReac Type Severity Reaction Status Date / Time Penicillins Allergy Unknown Itching Verified 09/03/23 15:14 Sulfa (Sulfonamide Allergy Unknown Itching Verified 09/03/23 15:14 Antibiotics) Review of Systems Review of Systems: CONSTITUTIONAL: Denies fever, chills, or sweats. EYES: Denies visual changes, redness, or discharge. ENT: Denies rhinorrhea, congestion, sore throat, or otalgia. CARDIOVASCULAR: Denies chest pain, palpitations, or edema. RESPIRATORY: Denies cough or dyspnea. GASTROINTESTINAL: Denies abdominal pain, nausea, vomiting, or diarrhea. GENITOURINARY: Denies dysuria or hematuria. SKIN: Denies rash or itching. MUSCULOSKELETAL: Denies back pain, joint pain, or myalgia. NEUROLOGIC: Denies headache, numbness, or weakness. PSYCHIATRIC: Denies anxiety or depression. [facility] Past Medical History Medical History Anxiety Diabetes mellitus, type II Hyperlipidemia Hypertension Left ankle sprain Narcolepsy Surgical History Surgical History H/O left knee surgery Family History Family History Mother Family history non-contributory Social History Social History Smoking status: Never smoker Alcohol intake: never Substance use: never Additional living arrangements comments: Works for [employer] Gender identity (if verbalized by the patient): Female Sexual Orientation (if Verbalized by the Patient): Straight or Heterosexual Spiritual care concerns: No Comments At time of signature, agree with nursing past medical, surgical, social and family history. There is no relevant family history pertinent to the presenting complaint Exam Narrative: GENERAL: Well-appearing, well-nourished, and in no acute distress. HEAD: Normocephalic, atraumatic. EYES: PERRLA and EOMI. ENT: Nares clear, no rhinorrhea or epistaxis. Mucous membranes moist. NECK: Supple. CHEST: Clear to auscultation. No respiratory distress. HEART: Regular rate and rhythm. No murmur heard. Normal peripheral pulses. ABDOMEN: Soft, nontender, nondistended, normal active bowel sounds. EXTREMITIES: Normal range of motion. No edema. SPINE MIDLINE. NO CURVATURE APPARENT. NO VERTEBRAL POINT SPECIFIC TENDERNESS. NO DEFORMITY. NO STEP-OFFS. NORMAL LE STRENGTH BILATERALLY. NORMAL LE SENSATION BILATERALLY
[2023-09-03] MEDS: KETOROLAC (*BKC) 60 MG/2 ML VIAL IM (15:46)
== END 2023-09-03 16:02 | disposition home or self-care (01) ==
PROVIDERS: Emergency Provider Nurse Practitioner Family; PCP Family Medicine
DX: M54.32 Sciatica, left side (principal); E11.9 Type 2 diabetes mellitus without complications; Z79.4 Long term (current) use of insulin; E78.5 Hyperlipidemia, unspecified; I10 Essential (primary) hypertension; F41.9 Anxiety disorder, unspecified; G47.419 Narcolepsy without cataplexy
CPT/HCPCS: 96372; 99213; G0463; J1885

== ENCOUNTER 2024-02-14 14:55 | Emergency (ER) | payer OTHER, SELFPAY ==
[2024-02-14 15:06] VITALS: BP 135/72; PULSE 90; RESP 20; TEMP 36.7; O2SAT 98
--- NOTE | 2024-02-14 15:34 | ED.HA ---
HPI - Headache General Chief Complaint: Headache Stated Complaint: headache,bilteral eye pressure Time Seen by Provider: 02/14/24 15:21 Source: patient and RN notes reviewed Mode of arrival: ambulatory Limitations: no limitations History of Present Illness HPI Narrative: Patient presents today complaining of frontal headache and pressure behind her eyes since last night. Headache has been intermittent. Associated symptoms include nausea and some intermittent dizziness. Patient does have history of migraines and this current migraine is consistent with previous migraines. She currently rates her pain 10/10. Patient is unsure if this is the worst headache she has ever had. She took a dose of naproxen at 10:00 a.m. this morning without relief. Related Data Home Medications Medication Instructions Recorded Confirmed insulin aspart U-100 100 unit/mL 100 sliding scale dose continuous 04/26/21 02/13/23 subcutaneous solution (Novolog subcutaneous infusion DIRECTED U-100 Insulin aspart) atorvastatin 80 mg tablet 40 tablet PO DAILY 09/28/21 02/13/23 buspirone 5 mg tablet 5 mg PO DAILY 12/01/21 02/13/23 dulaglutide 1.5 mg/0.5 mL 1.5 mg subcut WEEKLY 12/01/21 02/13/23 [facility] modafinil 200 mg tablet 200 mg PO DAILY 03/28/22 02/13/23 losartan 25 mg tablet 25 mg PO DAILY 10/07/22 02/13/23 blood-glucose sensor (Dexcom G6 10/30/22 12/26/22 Sensor device) famotidine 20 mg tablet mg 09/03/23 fluoxetine 20 mg capsule mg 09/03/23 hydrocodone 5 mg-acetaminophen 325 tablet 09/03/23 mg tablet metoprolol succinate 25 mg mg PO 09/03/23 09/03/23 tablet,extended release 24 hr Allergies Allergy/AdvReac Type Severity Reaction Status Date / Time Penicillins Allergy Unknown Itching Verified 09/03/23 15:14 Sulfa (Sulfonamide Allergy Unknown Itching Verified 09/03/23 15:14 Antibiotics) Review of Systems Review of Systems: CONSTITUTIONAL: Denies body aches, fever, chills, or sweats. EYES: Denies visual changes, redness, or discharge. ENT: Denies rhinorrhea, congestion, sore throat, or otalgia. CARDIOVASCULAR: Denies chest pain, palpitations, or edema. RESPIRATORY: Denies cough or dyspnea. GASTROINTESTINAL: Denies abdominal pain, vomiting, or diarrhea.+ nausea GENITOURINARY: Denies dysuria or hematuria. SKIN: Denies rash, itching, or wounds. MUSCULOSKELETAL: Denies back pain, joint pain, or myalgia. NEUROLOGIC: Denies numbness, tingling, or weakness.+ headache, dizziness PSYCH: Denies depression or anxiety. PMFSH Past Medical History Medical History Anxiety Diabetes mellitus, type II Hyperlipidemia Hypertension Left ankle sprain Narcolepsy Surgical History Surgical History H/O left knee surgery Family History Family History Mother Family history non-contributory Social History Social History Smoking status: Never smoker Alcohol intake: never Substance use: never Additional living arrangements comments: Works for [employer] Gender identity (if verbalized by the patient): Female Sexual Orientation (if Verbalized by the Patient): Straight or Heterosexual Spiritual care concerns: No Comments At time of signature, I have reviewed and agree with nursing past medical, surgical, social and family history unless otherwise noted. Please see nursing chart for further information. There is no relevant family history pertinent to the presenting complaint Exam Narrative: GENERAL: Well-appearing, well-nourished, and in mild pain distress. HEAD: Normocephalic, atraumatic. EYES: EOMI. PERRL. No redness or drainage. Conjunctivae normal. ENT: Mucous membranes pink and moist. NECK: Normal AROM. CHEST: No respiratory distr
[2024-02-14] MEDS: ONDANSETRON HCL ODT 4 MG TABLET 8 MG SUBLINGUAL (15:37)
[2024-02-14] MEDS: KETOROLAC (*BKC) 60 MG/2 ML VIAL IM (15:37)
== END 2024-02-14 16:23 | disposition home or self-care (01) ==
PROVIDERS: Emergency Provider Nurse Practitioner; PCP Family Medicine
DX: G43.909 Migraine, unspecified, not intractable, without status migrainosus (principal); E11.9 Type 2 diabetes mellitus without complications; E78.5 Hyperlipidemia, unspecified; I10 Essential (primary) hypertension; F41.9 Anxiety disorder, unspecified; G47.419 Narcolepsy without cataplexy
CPT/HCPCS: 96372; 99213; A9270; G0463; J1885

== ENCOUNTER 2024-09-16 10:49 | Emergency (ER) | payer OTHER, SELFPAY ==
[2024-09-16 10:58] VITALS: BP 143/77; PULSE 90; RESP 20; TEMP 36.4; O2SAT 99
--- OUTSIDE RECORDS SUMMARY | 2024-09-16 11:13 | XMS_ITS | Clinical Summary ---
Author Organization [facility] Healthcare Address [address] [place] [address] Care Team Providers Care Grinder Operator Tool Name Role Phone Eb Odell MD Primary Care Provider [phone] No, Physician Unavailable Eb Odell MD Unavailable Godfrey Gentile PT Unavailable Unavaila ble Elaine Rodarte PT Unavailable Unavailable Odette Pompa PRODUCTIVITY ENGINEER Unavailable [phone] Allergies Active Allergy Reactions Criticality Noted Date Comments Metformin Diarrhea Low 05/13/2022 Penicillins Unknown 02/11/2018 Sulfa (Sulfonamide Antibiotics) Itching Low 08/06 Medications aspirin 81 mg chewable tablet Take 1 tablet (81 mg total) by mouth daily. 30 tablet 018 Active lancets misc Use to test blood glucose 3 times each day DX E11.65, Z79.4 100 each 11 020 Active pen needle, diabetic (BD Ultra-Fine Short Pen Needle) 31 gauge x 5/16 needle USE TO INJECT 4TIMES DAILY DIRECTED 200 each 5 021 Active blood-glucose meter kit Use to test blood glucose 4times each day DX E11.65, Z79.4 1 each 021 Active albuterol HFA (PROVENTIL HFA,VENTOLIN HFA,PROAIR HFA) 90 mcg/actuation inhaler INHALE 2 PUFFS BY MOUTH EVERY 6 HOURS NEEDED FOR WHEEZING Active blood glucose diagnostic ([place]illa Poweruch Verio test strips) stripIndications: Type 2 diabetes mellitus with hyperglycemia, with long-term current use of insulin (HCC) Use to test blood sugar 4 Times/day. E11.65 200 each 5 022 Active olopatadine (PATADAY) 0.2 % ophthalmic solution 021 Active losartan (COZAAR) 25 mg tablet Take 1 tablet (25 mg total) by mouth 2 (two) times a day Active traMADoL (ULTRAM) 50 mg tablet TAKE 1 TABLET BY MOUTH EVERY 8 HOURS NEEDED FOR MODERATE OR MORE SEVERE PAIN 023 Active cetirizine (ZyrTEC) 10 mg tablet Take 1 tablet (10 mg total) by mouth daily as needed Active famotidine (PEPCID) 20 mg tablet Take 1 tablet (20 mg total) by mouth 2 (two) times a day 024 Active metoprolol XL (TOPROL-XL) 25 mg extended release tablet Take 1 tablet (25 mg total) by mouth daily 90 tablet 3 024 Active syringe and needle,insulin,1m L (insulin syringe-needle U-100) 1 mL 29 gauge x 7/16 syringe Use to inject insulin into insulin pump 100 each 11 Active insulin aspart (NovoLOG) 100 unit/mL vial for injection INFUSE INSULIN PER OMNIPOD. TOTAL DAILY DOSE- 125 UNITS. E11.65 30 mL 8 024 Active atorvastatin (LIPITOR) 40 mg tablet TAKE 1 TABLET BY MOUTH EVERY DAY AT NIGHT 90 tablet 4 024 Active modafiniL (PROVIGIL) 200 mg tablet Take 1 tablet (200 mg total) by mouth 2 (two) times a day 60 tablet 025 Active fluticasone propionate (FLONASE) 50 mcg/actuation nasal spray SPRAY 1 SPRAY BY NASAL ROUTE DAILY. USE IN EACH NOSTRIL DIRECTED. 025 Active naproxen (NAPROSYN) 500 mg tablet TAKE 1 TABLET BY MOUTH TWICE A DAY NEEDED FOR MILD OR MORE SEVERE PAIN 025 Active tirzepatide (Mounjaro) 5 mg/0.5 mL pen injector injection Inject 0.5 mL (5 mg total) under the skin every 7 days For 4 dose then increase to mounjaro 7.5mg weekly. E11.65 Patient switch from Trulicity 4.5mg weekly. E11.65 2 mL 025 Active tirzepatide (Mounjaro) 7.5 mg/0.5 mL pen injector injectionIndicati ons:type 2 diabetes mellitus Inject 0.5 mL (7.5 mg total) under the skin every 7 days For 4 weeks then increase to mounjaro to 10mg weekly. Patient switch from Trulicity 4.5mg weekly. E11.65 2 mL 11 025 Active tirzepatide (Mounjaro) 10 mg/0.5 mL pen injector injectionIndicati ons:type 2 diabetes mellitus Inject 0.5 mL (10 mg total) under the skin every 7 days Patient switch from Trulicity 4.5mg weekly. E11.65 2 mL 11 025 Active insulin die barber cart,aut,G6/7,cnt r (Omnipod 5 G6-G7 Intro Kt,Gen5,) cartridge Inject 1 Device under the skin continuously E11.65 1 each 1 025 Active Dexcom G7 Sensor device 1 Device continuously . Change every 10 days. E11.65 10 each 3 025 Active insulin pump cart,auto,BT,G6/7 (Omnipod 5 G6-G7 Pods, Gen 5,) cartridge Inject 1 Device under the skin every other day E11.65 45 each 4 025 Active Dexcom G6 Linoleum Mechanic misc USE DIRECTED 1 each 1 022 2024 Discontinued(T herapy completed) ondansetron ODT (ZOFRAN-ODT) 4 mg disintegrating tablet DISSOLVE 1 TABLET IN MOUTH EVERY 6 HOURS NEEDED FOR NAUSEA AND VOMITING FOR 3 DAYS 022 2024 Discontinued(T herapy completed) Omnipod Dash Pods, Gen 4, cartridge Use omnipod dash to infuse insulin. Change every 3 days. E11.65 30 each 3 023 2024 Discontinued(T herapy completed) meloxicam (MOBIC) 7.5 mg tabletIndications :Pt states she takes it when she feels like she needs it Take 1 tablet (7.5 mg total) by mouth 2 (two) times a day 023 2024 Discontinued FLUoxetine (PROzac) 20 mg capsule Take 1 capsule (20 mg total) by mouth daily 023 2024 Discontinued(T herapy completed) busPIRone (BUSPAR) 10 mg tablet Take 1 tablet (10 mg total) by mouth 2 (two) times a day 023 2024 Discontinued(T herapy completed) Trulicity 4.5 mg/0.5 mL pen injector INJECT 0.5 ML (4.5 MG TOTAL) UNDER THE SKIN EVERY 7 DAYS 2 mL 11 024 2024 Discontinued(T herapy completed) Dexcom G6 Sensor deviceIndications :type 2 diabetes mellitus 1 Device continuously Use to check glucose level continuously; change every 10 days. E11.65 10 each 4 024 2024 Discontinued(T herapy completed) blood-glucose transmitter (Dexcom G6 Transmitter) deviceIndications :Type 2 diabetes mellitus with hyperglycemia, with long-term current use of insulin (HCC) 1 DEVICE BY SUBCUTANEOUS (VIA WEARABLE INJECTOR) ROUTE CONTINUOUSLY E11.65 1 each 3 025 2024 Discontinued(T herapy completed) Active Problems Problem Noted Date Diagnosed Date Dexcom continuous glucose monitoring device 08/2023 Assessment & Plan (09/03/2024 4:26 PM CDT): Assessment & Plan (02/09/2024 8:49 AM CDT): Continuous glucose monitor (cgm) applied from 01/27/2024 to 02/09/2024 This device was placed for monitor and treatment of blood sugar. Interpretation of data- 6% time in range, 94% hyperglycemia. 0 hypoglycemia. Average glucose 303. Carpal tunnel syndrome of left wrist 11/15/2022 Acute cystitis with hematuria 11/12/2022 Unable to walk 11/11/2022 Acute pain of left shoulder 11/11/2022 CVA (cerebrovascular accident) 11/11/2022 Anxiety 11/11/2022 LUE weakness 11/10/2022 Left flank pain 06/15/2022 Acute low back pain 06/15/2022 History of CVA in adulthood 06/15/2022 Hematuria 06/15/2022 Fibroid 06/15/2022 Omnipod Dash insulin pump in place 12/14/2020 Overview (12/14/2020): omnipod Assessment & Plan (09/03/2024 3:58 PM CDT): This is a chronic condition which is but out of control, not at goal. Download reviewed from 08/21/2024 to 09/03/2024. Type of insulin pump-Omnipod dash with NovoLog insulin Will upgrade to Omnipod OP5 and dexcom 7. Pump settings : Basal - 2 units IC - 9 ISF - 35 Active insulin time 4hrs. TARGET GLUCOSE 100- correct above-140 Total daily dose of insulin-14 units (all bolus) Boluses 0 to 3 times daiily. Inconsistently wearing omnipod. Interpretation: Average glucose 335. 100% hyperglycemia Assessment & Plan (02/09/2024 8:48 AM CDT): This is a chronic condition which is but out of control, not at goal. Download reviewed. Download from 01/27/2024 to 02/09/24. Type of insulin pump-Omnipod with NovoLog insulin Pump settings : Basal - 2 units IC - 9 ISF - 35 Active insulin time 4hrs. TARGET GLUCOSE Insulin delivery equals 9 units per 1 bolus. States that her Omnipod is empty and she will refill it Encouraged to return to Omnipod. She feels her hyperglycemia is emotional Interpretation: Average glucose 368. 100% hyperglycemia Assessment & Plan (12/30/2022 1:53 PM CDT): This is a chronic condition which is but out of control, worsening not at goal. Not wearing Omnipod Download reviewed. Type of insulin pump-Omnipod Pump settings : Basal - 2 units IC - 9 ISF - 35 Active insulin time 4hrs. TARGET GLUCOSE Encouraged to return to Omnipod. States she will. She feels her hyperglycemia is emotional Assessment & Plan (05/13/2022 4:39 PM DIVINITY TEACHER): This is a chronic condition which is but not at goal. Download reviewed. Type of insulin pump-Omnipod Pump settings : Basal - 2 units IC - 9 ISF - 35 Active insulin time 4hrs. TARGET GLUCOSE Off Omnipod as the screen is going black Off Dexcom as she lost her reader Encouraged to call [employer] and get a replacement reader sent to her home Assessment & Plan (02/04/2022 11:58 AM CDT): This is a chronic condition which is but not at goal. Download reviewed. Type of insulin pump-Omnipod Pump settings : Basal - 2 units IC - 9 ISF - 35 Active insulin time 4hrs. TARGET GLUCOSE Total daily dose of insulin-43 units Basal-32 units (91 %) Bolus- 3 unit (9 %) boluses 0-2 times/day. Encouraged to bolus 2x/day- everyday. Continuous glucose monitor (cgm) applied from 01/29/2022 to 02/04/2022 This device was placed for monitor and treatment of blood sugar. Did not provide authorization specialist as she left in the car Assessment & Plan (11/13/2021 8:20 AM CDT): This is a chronic condition which is but not at goal. Download reviewed. Type of insulin pump-Omnipod Pump settings : Basal - 2 units IC - 9 ISF - 35 Active insulin time 4hrs. TARGET GLUCOSE Total daily dose of insulin-43 units Basal-36 units (84%) Bolus- 7 unit (16%) boluses 0-2 times/day. Encouraged to bolus 2x/day- everyday. Continuous glucose monitor (cgm) applied from 10/30/2021 to 2021 This device was placed for monitor and treatment of blood sugar. Interpretation of data- In target 51.8% of the time. With post pranial hyperglycemia. trulicity increased. Assessment & Plan (10/15/2021 3:46 PM CDT): This is a chronic condition which is but not at goal. Download reviewed. Type of insulin pump-Omnipod Pump settings : Basal - 2 units IC - 9 ISF - 35 Active insulin time 4hrs. TARGET GLUCOSE Total daily dose of insulin-15.6 units Basal-9.8 units (63%) Bolus- 5.8 unit (37%) Interpretation- lack of bolusing with omnipod. Will send for continue training with Aleyda from [employer]. Assessment & Plan (09/03/2021 3:10 PM CDT): This is a chronic condition which is but not at goal. Download reviewed. Type of insulin pump-Omnipod Pump settings : Basal - 2 units IC - 9 ISF - 35 Active insulin time 4hrs. TARGET GLUCOSE no download today as she forgot her pdm and dexcom reader. Assessment & Plan (07/23/2021 5:32 PM CDT): This is a chronic condition which is but not at goal. Download reviewed. Type of insulin pump-Omnipod Pump settings : Basal - increased to 2 units IC -decreased to 9 ISF - decreased to 35 Active insulin time 4hrs. TARGET GLUCOSE Avg BG 260 Avg Total daily insulin 41.5units Avg daily basal 33.4 units (80%) Avg daily bolus 8.1 units(20%) Daily bolus - 1.2 From 07/09/21 thru 07/22/21 Dexcom 6 Data Analysis as per fingerstick blood sugars Very High >250 mg/dl- 58% High 181-250 mg/dl 92% Target 70-180 mg/dl 8% Low 54-69 mg/dl 0% Very Low <50 mg/dl 0% Encouraged to bolus 3 times/day and for blood sugars greater than 200 Interpretation: Hyperglycemia throughout the day. Increase basal for better control. Encouraged to bolus for meals. Encouraged healthy eating. Assessment & Plan (03/26/2021 4:22 PM DIVINITY TEACHER): This is a chronic condition which is but not at goal. Download reviewed. Type of insulin pump-Omnipod Pump settings : Basal - increased to 1.75units IC -10 ISF -55 Active insulin time 4hrs. TARGET GLUCOSE Avg BG 289 Avg Total daily insulin 34.7 units Avg daily basal 25.3 units (73%) Avg daily bolus 9.3 units(27%) From 02/12/21 thru 02/25/21 Data Analysis as per fingerstick blood sugars Very High >250 mg/dl- 75.2% High 181-250 mg/dl 95.9% Target 70-180 mg/dl 4.12% Low 54-69 mg/dl 0% Very Low <50 mg/dl 0% Encouraged to bolus 3 times/day and for blood sugars greater than 200 Interpretation: Hyperglycemia throughout the day. Increase basal for better control. Encouraged to bolus for meals/ Assessment & Plan (01/21/2021 3:19 PM CDT): This is a chronic condition which is but not at goal. Download reviewed. Type of insulin pump-Omnipod Pump settings : Basal - increased to 1.5 units IC -10 ISF -55 Active insulin time 4hrs. TARGET GLUCOSE Avg BG 257 Avg Total daily insulin 40units Avg daily basal 26 units (65%) Avg daily bolus 14 units(35%) From 01/07/21 thru 01/20/21 Data Analysis as per fingerstick blood sugars Very High >250 mg/dl- 53% High 181-250 mg/dl 92.9% Target 70-180 mg/dl 7.1 % Low 54-69 mg/dl 0% Very Low <50 mg/dl 0% Encouraged to bolus 3 times/day and for blood sugars greater than 200 Interpretation: increasing hyperglycemia related to UTI. will increase basal for better control. . Assessment & Plan (12/14/2020 1:04 PM CDT): This is a chronic condition which is but not at goal. Download reviewed. Type of insulin pump-Omnipod Pump settings : Basal - increased to 1.25 units IC -10 ISF -55 Active insulin time 4hrs. TARGET GLUCOSE Avg BG 215 BG readings -14 Standard deviation- 72 Avg Total daily insulin 27.6 units Avg daily basal 15.5 (56%) Avg daily bolus 12.1 (44%) Data Analysis as per fingerstick blood sugars Very High >250 mg/dl- 29% High 181-250 mg/dl 36% Target 70-180 mg/dl 35 % Low 54-69 mg/dl 0% Very Low <50 mg/dl 0% bolusing 3 times/day. Interpretation: Improving blood sugars will increase basal for better control. Needs Dexcom sensor for continuous monitoring. . Class 3 severe obesity due t o excess calories with serious comorbidity and body mass index (BMI) of 40.0 to 44.9 in adult 11/04/2020 Assessment & Plan (02/09/2024 8:45 AM CDT): This is a chronic condition which is worsening 5 lbs. Weight gain since last office visit Continue Trulicity Encouraged healthy eating which includes a low carb diet. Avoiding processed foods, sweets and fried foods. Encouraged 30 minutes of walking at least 5 days per week Discussed that exercise can be broken down into small sessions- for example 2- 15 minutes sessions or 3- 10 minutes sessions. Assessment & Plan (05/13/2022 4:40 PM DIVINITY TEACHER): This is a chronic condition which is improving 21 lb weight loss since last office visit Encourage weight loss and exercise Increase Trulicity 3 mg weekly Assessment & Plan (02/04/2022 11:56 AM CDT): This is a chronic condition which is worsening 3 lb weight gain since last office visit Encourage weight loss and exercise Thyroid nodule 12/12/2019 Assessment & Plan (09/09/2022 8:52 AM CDT): Last thryoid ultrasound 12/27. Will repeata 12/28 COMPARISON: 09/29/2021 FINDINGS: The right milly thyroid is heterogeneous. There is a questionable area of nodularity in the inferior aspect of the right milly thyroid which measures 1.4 x 1.3 cm. The borders are probably shadowing rather than representing a true nodule in its only truly seen in 1 plane additionally the area is isoechoic without other suspicious features. At most this would be a TI-RADS 3 lesion and no biopsy is recommended. Previously it may have appeared hypoechoic secondary to poor acoustic penetration but it is clearly isoechoic on this exam and the tech on the previous exam felt it was isoechoic as well. Because there is no nodule that warrants biopsy by TI-RADS criteria a biopsy was not performed. This was discussed with the patient who is agreeable to a 1 year follow-up ultrasound rather than biopsy. THIS IS AN ELECTRONICALLY VERIFIED FINAL REPORT 12/17/2021 11:55 AM - Electronically signed by Nick Bolaños M.D. Assessment & Plan (05/13/2022 4:38 PM DIVINITY TEACHER): This is a chronic condition. will repeat thyroid ultrasound in 12/2022 COMPARISON: 09/29/2021 FINDINGS: The right milly thyroid is heterogeneous. There is a questionable area of nodularity in the inferior aspect of the right milly thyroid which measures 1.4 x 1.3 cm. The borders are probably shadowing rather than representing a true nodule in its only truly seen in 1 plane additionally the area is isoechoic without other suspicious features. At most this would be a TI-RADS 3 lesion and no biopsy is recommended. Previously it may have appeared hypoechoic secondary to poor acoustic penetration but it is clearly isoechoic on this exam and the tech on the previous exam felt it was isoechoic as well. Because there is no nodule that warrants biopsy by TI-RADS criteria a biopsy was not performed. This was discussed with the patient who is agreeable to a 1 year follow-up ultrasound rather than biopsy. THIS IS AN ELECTRONICALLY VERIFIED FINAL REPORT 12/17/2021 11:55 AM - Electronically signed by Nick Bolaños M.D. Assessment & Plan (02/04/2022 11:50 AM CDT): This is a chronic condition which is not at goal. Goal is for TSH to be between 0.3 to 4.2 mclUnits/ml Personally reviewed lab from care everywhere. 12/27 per care everywhere. FINDINGS: The right milly thyroid is heterogeneous. There is a questionable area of nodularity in the inferior aspect of the right milly thyroid which measures 1.4 x 1.3 cm. The borders are probably shadowing rather than representing a true nodule in its only truly seen in 1 plane additionally the area is isoechoic without other suspicious features. At most this would be a TI-RADS 3 lesion and no biopsy is recommended. Previously it may have appeared hypoechoic secondary to poor acoustic penetration but it is clearly isoechoic on this exam and the tech on the previous exam felt it was isoechoic as well. Because there is no nodule that warrants biopsy by TI-RADS criteria a biopsy was not performed. This was discussed with the patient who is agreeable to a 1 year follow-up ultrasound rather than biopsy. THIS IS AN ELECTRONICALLY VERIFIED FINAL REPORT 12/17/2021 11:55 AM - Electronically signed by Nick Bolaños M.D. KN: VANDANA Component 09/29/2021 TSH 2.760 FINDINGS from 09/28/21 at [facility]. IMPRESSION: 1. Enlarged and heterogeneous thyroid gland with suggestion of increased color Doppler flow. Recommend clinical correlation and correlation with thyroid function tests. 2. Right 1.6 cm TR 4 nodule. Recommend further evaluation with fine-needle aspiration. 3. Left 1.1 cm TR 4 nodule. Recommend follow-up thyroid ultrasound in 12 months. Assessment & Plan (11/13/2021 8:35 AM CDT): This is a chronic condition which is not at goal. Goal is for TSH to be between 0.3 to 4.2 mclUnits/ml Personally reviewed lab from care everywhere. Component 09/29/2021 TSH 2.760 FINDINGS from 09/28/21 at [facility]. IMPRESSION: 1. Enlarged and heterogeneous thyroid gland with suggestion of increased color Doppler flow. Recommend clinical correlation and correlation with thyroid function tests. 2. Right 1.6 cm TR 4 nodule. Recommend further evaluation with fine-needle aspiration. 3. Left 1.1 cm TR 4 nodule. Recommend follow-up thyroid ultrasound in 12 months. Assessment & Plan (09/03/2021 3:09 PM CDT): This is a chronic condition which is not at goal. Goal is for TSH to be between 0.3 to 4.2 mclUnits/ml Personally reviewed lab. Last TSH- 4.56 (06/10/20) Repeat TSH, T4 and thyroid ultrasound 06/29. Repeat ultrasound 09/2721. US THYROID FINDINGS from 06/28: RIGHT: 5.8 x 2.2 x 2.7 cm. Diffusely heterogeneous right thyroid lobe. No dominant nodule. LEFT: 6.4 x 2.5 x 2.4 cm. Diffusely heterogeneous left thyroid lobe. There is a solid isoechoic nodule within the mid aspect of the left thyroid lobe measuring 1.2 x 0.8 x 1.3 cm. This nodule is grossly stable in size when compared with the prior examination in 11/25/2019. ISTHMUS: 7 mm AP dimension. No dominant nodule. IMPRESSION: Stable 1.3 cm nodule within the left thyroid lobe with a TI-RADS 3 classification. Follow-up ultrasound is recommended in one year to ensure stability. Assessment & Plan (07/23/2021 5:28 PM CDT): This is a chronic condition which is not at goal. Goal is for TSH to be between 0.3 to 4.2 mclUnits/ml Personally reviewed lab. Last TSH- 4.56 (06/10/20) Repeat TSH, T4 and thyroid ultrasound 06/29 US THYROID FINDINGS from 06/28: RIGHT: 5.8 x 2.2 x 2.7 cm. Diffusely heterogeneous right thyroid lobe. No dominant nodule. LEFT: 6.4 x 2.5 x 2.4 cm. Diffusely heterogeneous left thyroid lobe. There is a solid isoechoic nodule within the mid aspect of the left thyroid lobe measuring 1.2 x 0.8 x 1.3 cm. This nodule is grossly stable in size when compared with the prior examination in 11/25/2019. ISTHMUS: 7 mm AP dimension. No dominant nodule. IMPRESSION: Stable 1.3 cm nodule within the left thyroid lobe with a TI-RADS 3 classification. Follow-up ultrasound is recommended in one year to ensure stability. Assessment & Plan (03/26/2021 4:19 PM DIVINITY TEACHER): This is a chronic condition which is not at goal. Goal is for TSH to be between 0.3 to 4.2 mclUnits/ml Personally reviewed lab. Last TSH- 4.56 (06/10/20) Repeat TSH, T4 and thyroid ultrasound 06/28 US THYROID FINDINGS from 06/28: RIGHT: 5.8 x 2.2 x 2.7 cm. Diffusely heterogeneous right thyroid lobe. No dominant nodule. LEFT: 6.4 x 2.5 x 2.4 cm. Diffusely heterogeneous left thyroid lobe. There is a solid isoechoic nodule within the mid aspect of the left thyroid lobe measuring 1.2 x 0.8 x 1.3 cm. This nodule is grossly stable in size when compared with the prior examination in 11/25/2019. ISTHMUS: 7 mm AP dimension. No dominant nodule. IMPRESSION: Stable 1.3 cm nodule within the left thyroid lobe with a TI-RADS 3 classification. Follow-up ultrasound is recommended in one year to ensure stability. Assessment & Plan (12/14/2020 12:38 PM CDT): This is a chronic condition which is not at goal. Goal is for TSH to be between 0.3 to 4.2 mclUnits/ml Personally reviewed lab. Last TSH- 4.56 (06/10/20) Repeat TSH, T4 and thyroid ultrasound 06/28 US THYROID FINDINGS: RIGHT: 5.8 x 2.2 x 2.7 cm. Diffusely heterogeneous right thyroid lobe. No dominant nodule. LEFT: 6.4 x 2.5 x 2.4 cm. Diffusely heterogeneous left thyroid lobe. There is a solid isoechoic nodule within the mid aspect of the left thyroid lobe measuring 1.2 x 0.8 x 1.3 cm. This nodule is grossly stable in size when compared with the prior examination in 11/25/2019. ISTHMUS: 7 mm AP dimension. No dominant nodule. IMPRESSION: Stable 1.3 cm nodule within the left thyroid lobe with a TI-RADS 3 classification. Follow-up ultrasound is recommended in one year to ensure stability. Assessment & Plan (11/27/2020 3:28 PM CDT): This is a chronic condition which is not at goal. Goal is for TSH to be between 0.3 to 4.2 mclUnits/ml Personally reviewed lab. Last TSH- 4.56 (06/10/20) Repeat TSH, T4 06/28 thyroid ultrasound US THYROID FINDINGS: RIGHT: 5.8 x 2.2 x 2.7 cm. Diffusely heterogeneous right thyroid lobe. No dominant nodule. LEFT: 6.4 x 2.5 x 2.4 cm. Diffusely heterogeneous left thyroid lobe. There is a solid isoechoic nodule within the mid aspect of the left thyroid lobe measuring 1.2 x 0.8 x 1.3 cm. This nodule is grossly stable in size when compared with the prior examination in 11/25/2019. ISTHMUS: 7 mm AP dimension. No dominant nodule. IMPRESSION: Stable 1.3 cm nodule within the left thyroid lobe with a TI-RADS 3 classification. Follow-up ultrasound is recommended in one year to ensure stability. Assessment & Plan (11/13/2020 4:25 PM CDT): This is a chronic condition which is not at goal. Goal is for TSH to be between 0.3 to 4.2 mclUnits/ml Personally reviewed lab. Last TSH- 4.56 (06/10/20) Repeat TSH, T4 06/28 thyroid ultrasound US THYROID FINDINGS: RIGHT: 5.8 x 2.2 x 2.7 cm. Diffusely heterogeneous right thyroid lobe. No dominant nodule. LEFT: 6.4 x 2.5 x 2.4 cm. Diffusely heterogeneous left thyroid lobe. There is a solid isoechoic nodule within the mid aspect of the left thyroid lobe measuring 1.2 x 0.8 x 1.3 cm. This nodule is grossly stable in size when compared with the prior examination in 11/25/2019. ISTHMUS: 7 mm AP dimension. No dominant nodule. IMPRESSION: Stable 1.3 cm nodule within the left thyroid lobe with a TI-RADS 3 classification. Follow-up ultrasound is recommended in one year to ensure stability. Assessment & Plan (12/12/2019 12:24 PM CDT): Enlarged thyroid Thyroid Ultrasound on 11/25/19 Left thyroid nodule 1.2 cm Patient is clinically euthyroid TSH was 3.7 on 06/26/19 Plan: The abnormality on Ultrasound explained to patient We will monitor thyroid Repeat thyroid Ultrasound in 6-12 month. Mixed diabetic hyperlipidemi a associated with type 2 diabetes mellitus Assessment & Plan (02/09/2024 8:44 AM CDT): This is a chronic condition which is not at goal . Goal is LDL less than 70 Continue atorvastatin Encouraged to eat healthy, include fresh fruits and vegetables daily and avoid eating fried foods more than once per week. Assessment & Plan (12/30/2022 1:19 PM CDT): This is a chronic condition which is not at goal of LDL less than 70 Continue atorvastatin. Encouraged to eat healthy, include fresh fruits and vegetables daily and avoid eating fried foods more than once per week. Encouraged to take medications as prescribed. Assessment & Plan (05/13/2022 4:40 PM DIVINITY TEACHER): This is a chronic condition which is not at goal of less than 70. LDL 91 Continue atorvastatin Personally reviewed lipid panel. Encouraged to eat healthy, include fresh fruits and vegetables daily and avoid eating fried foods more than once per week. Encouraged to take medications as prescribed. Assessment & Plan (02/04/2022 11:56 AM CDT): This is a chronic condition which is not at goal. Goal is less than 70. Continue atorvastatin Personally reviewed lipid panel. Lab Results Component Value Date LDLCALC 139 (H) 09/07/2021 Encouraged to eat healthy, include fresh fruits and vegetables daily and avoid eating fried foods more than once per week. Encouraged to take medications as prescribed. Assessment & Plan (11/13/2021 8:42 AM CDT): This is a chronic condition which is not at goal. Goal is less than 70. Personally reviewed lipid panel. Continue atorvastatin. Lab Results Component Value Date LDLCALC 139 (H) 09/07/2021 From care everywhere. LDL 54 Encouraged to eat healthy, include fresh fruits and vegetables daily and avoid eating fried foods more than once per week. Encouraged to take medications as prescribed. Assessment & Plan (10/15/2021 3:44 PM CDT): This is a chronic condition which is not at goal. Goal is less than 70. Personally reviewed lipid panel. LDL -139, currently on atorvastatin 80 mg daily. reports not taking this medication. Encouraged to eat healthy, include fresh fruits and vegetables daily and avoid eating fried foods more than once per week. Encouraged to take medications as prescribed. Assessment & Plan (09/03/2021 3:09 PM CDT): This is a chronic condition which is not at goal. Goal is less than 70. Personally reviewed lipid panel. LDL - 99, currently on atorvastatin 80 mg daily. reports not taking this medication. Encouraged to eat healthy, include fresh fruits and vegetables daily and avoid eating fried foods more than once per week. Encouraged to take medications as prescribed. Assessment & Plan (07/23/2021 5:28 PM CDT): This is a chronic condition which is not at goal. Goal is less than 70. Personally reviewed lipid panel. LDL - 99, currently on atorvastatin 80 mg daily. reports not taking this medication. Encouraged to eat healthy, include fresh fruits and vegetables daily and avoid eating fried foods more than once per week. Encouraged to take medications as prescribed. Assessment & Plan (03/26/2021 4:19 PM DIVINITY TEACHER): This is a chronic condition which is not at goal. Goal is less than 70. Personally reviewed lipid panel. LDL - 99, currently on atorvastatin 80 mg daily. reports not taking this medication. Encouraged to eat healthy, include fresh fruits and vegetables daily and avoid eating fried foods more than once per week. Encouraged to take medications as prescribed. Assessment & Plan (01/21/2021 3:07 PM CDT): This is a chronic condition which is not at goal. Goal is less than 70. Personally reviewed lipid panel. LDL - 99, currently on atorvastatin 80 mg daily. reports not taking this medication. Encouraged to eat healthy, include fresh fruits and vegetables daily and avoid eating fried foods more than once per week. Encouraged to take medications as prescribed. Type 2 diabetes mellitus wit h hyperglycemia, with long-term current use of insulin Assessment & Plan (02/09/2024 8:44 AM CDT): This is a chronic condition which is not at goal . Goal is less than 7%. Personally reviewed most recent A1c - Lab Results Component Value Date HGBA1C 11.7 02/09/2024 Personally reviewed POC blood sugar- not at goal of 80-180 Lab Results Component Value Date POCGLU 304 02/09/2024 Medication- Continue Omnipod insulin delivery system. Basal - 2units, carb ratio-9, sens-35, A1-4hrs. Continue trulicity 4.5 mg weekly. Encouraged to wear her omnipod and take the insulin as prescribed. Does not tolerate metformin abdominal pain and diarrhea. Stopped Jardiance on her own and does not want to take it anymore Monitor blood sugar continuously with cgm. Encouraged annual eye exam. eGFR- 108 Kidney function-abnormal Urine microalbumin/creatinine ratio - at goal. Goal is <30 Continue metoprolol, losartan Assessment & Plan (12/30/2022 1:52 PM CDT): This is a chronic condition which is out of control, worsening, not at goal of less than 7%. Personally reviewed most recent A1c - Lab Results Component Value Date HGBA1C 10.5 12/30/2022 Personally reviewed POC blood sugar- not at goal 80-180 Lab Results Component Value Date POCGLU 298 12/30/2022 Medication- Continue Omnipod insulin delivery system. Basal increased to 2units, carb ratio-9, sens-35, A1-4hrs. Not wearing omnipod. Encouraged to wear omnipod. States she will put it back on. Continue trulicity 3 mg weekly, Monitor blood sugar continuously with dexcom 6 sensor. Encouraged annual eye exam. Monofilament foot exam completed. protective senses intact loss of protective senses. Treated with Gabapentin/Lyrica Personally reviewed CMP eGFR- 108 Kidney function- normal Urine microalbumin/creatinine ratio - at goal <30 treated with losartan B/P today- at goal of <140/90 after 5 minutes of rest. continue losartan Personally reviewed lipid panel. Not at Goal of less than 70. Continue atorvastatin Assessment & Plan (09/09/2022 9:27 AM CDT): This is a chronic condition which is poorly controlled, worsening not at goal of less than 7%. Personally reviewed most recent A1c - Lab Results Component Value Date HGBA1C 10.5 09/09/2022 Personally reviewed POC blood sugar- not at goal 80-180 Lab Results Component Value Date POCGLU 252 09/09/2022 Medication- Continue omnipod with novolog, increase trulicity 4.5mg weekly. Monitor blood sugar ontinuously with dexcom 6 sensor. Unable to download dexcom sensor. Encouraged annual eye exam. Monofilament foot exam completed. protective senses intact Urine microalbumin/creatinine ratio - at goal <30 not treated with losartan, Personally reviewed CMP eGFR- 109 Kidney function- normal B/P today- not at goal of <140/90. continue Losartan Personally reviewed lipid panel. Not at Goal of less than 70. Continue atorvastatin. Assessment & Plan (05/13/2022 4:37 PM DIVINITY TEACHER): This is a chronic condition which is worsening, out of control, not at goal. goal less than 7% Personally reviewed most recent A1c - Lab Results Component Value Date HGBA1C 9.2 05/13/2022 Personally reviewed POC blood sugar- Lab Results Component Value Date POCGLU 195 05/13/2022 not at goal 80-180 Medication- Continue Omnipod, increase Trulicity 3 mg weekly Patient's stopped Jardiance . Does not tolerate metformin diarrhea and abdominal pain Monitor blood sugar continuously with Dexcom 6 sensor. Encouraged to call [employer] and have a replacement control her sent to her home Encouraged annual eye exam. Monofilament foot exam completed. protective senses intact Urine microalbumin/creatinine ratio - 21, at goal <30 not treated with AUDI/ARB Personally reviewed CMP GFR- >60 Kidney function- normal, abnormal B/P today- now at goal. Goal is <140/90 Not on AUDI/ARB Personally reviewed lipid panel. LDL-91. Not at Goal of less than 70. Continue on atorvastatin Assessment & Plan (02/04/2022 11:55 AM CDT): This is a chronic condition which is improving, but not at goal. goal less than 7% Personally reviewed most recent A1c - Lab Results Component Value Date HGBA1C 7.7 02/04/2022 Personally reviewed POC blood sugar- Lab Results Component Value Date POCGLU 217 02/04/2022 not at goal 80-180 Medication- Continue Omnipod, Jardiance 10 mg p.o. daily, Trulicity 1.5 mg weekly Monitor blood sugar continuously with sensor. Encouraged annual eye exam. Monofilament foot exam completed. protective senses intact Urine microalbumin/creatinine ratio - 21, at goal <30 not treated with AUDI/ARB Personally reviewed CMP GFR- No results found for: EGFR, @lastegfr@ Kidney function- normal, abnormal B/P today- at goal. Goal is <140/90 Not on AUDI/ARB Personally reviewed lipid panel. Not at Goal of less than 70. Continue on atorvastatin Assessment & Plan (11/13/2021 8:40 AM CDT): This is a chronic condition which is improving but not at goal- per cgm Personally reviewed A1c 11%. goal less than 7% Medication- Continue Metformin 1000mg po bid, insulin per Omnipod. continue jardiance 10mg po daily. increase trulicity 1.5mg weekly on Monday. Encouraged Monitor blood sugarcontinuously with Dexcom 6 sensor Encouraged annual eye exam. Monofilament foot exam completed, protective senses intact Urine microalbumin/creatinine ratio at goal <30. Not on AUDI/ARB Personally reviewed labs: In care everywhere. BUN, creatinine, GFR- >113 Kidney function- normal B/P today- 132/74, currently not on AUDI/ARB. at Goal blood pressure is <140/90 and as close to 120/80 as possible. Personally reviewed LDL -54, currently on atorvastatin 80 mg daily. Not at Goal of less than 70. history of macrovascular disease - CVA Assessment & Plan (10/15/2021 3:44 PM CDT): This is a chronic condition which is worsening and not at goal. Personally reviewed A1c 11%. goal less than 7% Medication- Continue Metformin 1000mg po bid, insulin per Omnipod. continue jardiance 10mg po daily. Start trulicity 0.75mg weekly on Monday. Encouraged Monitor blood sugarcontinuously with Dexcom 6 sensor Encouraged annual eye exam. Monofilament foot exam completed, protective senses intact Urine microalbumin/creatinine ratio at goal <30. Not on AUDI/ARB Personally reviewed labs: In care everywhere. BUN, creatinine, GFR- >113 Kidney function- normal B/P today- 138/84, currently not on AUDI/ARB. at Goal blood pressure is <140/90 and as close to 120/80 as possible. Personally reviewed LDL - 139, currently on atorvastatin 80 mg daily. Not at Goal of less than 70-reports not taking this medication. history of macrovascular disease - CVA Assessment & Plan (09/03/2021 3:07 PM CDT): This is a chronic condition which is not at goal. Personally reviewed A1c 10.2%. goal less than 7% Medication- Continue Metformin 1000mg po bid, insulin per Omnipod. Monitor blood sugarcontinuously with Dexcom 6 sensor Encouraged annual eye exam. Monofilament foot exam completed, protective senses intact Urine microalbumin/creatinine ratio -<30 Currently not on AUDI/ARB , at goal <30 Personally reviewed labs: In care everywhere. BUN- 16, creatinine- 0.61 GFR- >60 Kidney function- normal B/P today- 136/84, currently not on AUDI/ARB. at Goal blood pressure is <140/90 and as close to 120/80 as possible. Personally reviewed LDL - 99, currently on atorvastatin 80 mg daily. Not at Goal of less than 70-reports not taking this medication. history of macrovascular disease - CVA Assessment & Plan (07/23/2021 5:17 PM CDT): This is a chronic condition which is not at goal. Personally reviewed A1c 10.2%. goal less than 7% Medication- Continue Metformin 1000mg po bid, insulin per Omnipod. Monitor blood sugarcontinuously with Dexcom 6 sensor Encouraged annual eye exam. Monofilament foot exam completed, protective senses intact Urine microalbumin/creatinine ratio -<30 Currently not on AUDI/ARB , at goal <30 Personally reviewed labs: In care everywhere. BUN- 16, creatinine- 0.61 GFR- >60 Kidney function- normal B/P today- 142/82, currently not on AUDI/ARB. at Goal blood pressure is <140/90 and as close to 120/80 as possible. Personally reviewed LDL - 99, currently on atorvastatin 80 mg daily. Not at Goal of less than 70-reports not taking this medication. history of macrovascular disease - CVA C/o vaginal yeast infection/itching. Diflucan ordered. Assessment & Plan (03/26/2021 4:23 PM DIVINITY TEACHER): This is a chronic condition which is improving but not at goal. Personally reviewed A1c 9.9%. goal less than 7% Medication- Continue Metformin 1000mg po bid, insulin per Omnipod. Monitor blood sugarcontinuously with Dexcom 6 sensor Encouraged annual eye exam. Monofilament foot exam completed, protective senses intact Urine microalbumin/creatinine ratio -<30 Currently not on AUDI/ARB , at goal <30 Personally reviewed labs: (11/04/20) In care everywhere. BUN- 11, creatinine- 0.52 GFR- >60 Kidney function- normal B/P today- 118/74, currently not on AUDI/ARB. at Goal blood pressure is <140/90 and as close to 120/80 as possible. Personally reviewed LDL - 99, currently on atorvastatin 80 mg daily. Not at Goal of less than 70-reports not taking this medication. history of macrovascular disease - CVA C/o vaginal yeast infection/itching. Diflucan ordered. Assessment & Plan (01/21/2021 2:59 PM CDT): This is a chronic condition which is improving but not at goal. Personally reviewed A1c (11/04/20) -11.6% care everywhere. Not at goal less than 7% Medication- Continue Metformin 1000mg po bid, insulin per Omnipod. Monitor blood sugarcontinuously with Dexcom 6 sensor Encouraged annual eye exam. Monofilament foot exam completed, protective senses intact Urine microalbumin/creatinine ratio -<30 Currently not on AUDI/ARB , at goal <30 Personally reviewed labs: (11/04/20) In care everywhere. BUN- 11, creatinine- 0.52 GFR- >60 Kidney function- normal B/P today- 122/66, currently not on AUDI/ARB. at Goal blood pressure is <140/90 and as close to 120/80 as possible. Personally reviewed LDL - 99, currently on atorvastatin 80 mg daily. Not at Goal of less than 70-reports not taking this medication. history of macrovascular disease - CVA Assessment & Plan (12/14/2020 12:39 PM CDT): This is a chronic condition which is improving but not at goal. Personally reviewed A1c (11/04/20) -11.6% care everywhere. Not at goal less than 7% Medication- Continue Metformin 1000mg po bid, insulin per Omnipod. Monitor blood sugar 4x times a day. will obtain Dexcom 6 sensor if insurance approves. Encouraged annual eye exam. Obtaining eye exam today. Monofilament foot exam completed, protective senses intact Urine microalbumin/creatinine ratio -<30 Currently not on AUDI/ARB , at goal <30 Personally reviewed labs: (11/04/20) In care everywhere. BUN- 11, creatinine- 0.52 GFR- >60 Kidney function- normal B/P today- 122/66, currently not on AUDI/ARB. at Goal blood pressure is <140/90 and as close to 120/80 as possible. Personally reviewed LDL - 99, currently on atorvastatin 80 mg daily. Not at Goal of less than 70-reports not taking this medication. history of macrovascular disease - CVA Assessment & Plan (11/27/2020 3:27 PM CDT): This is a chronic condition which is uncontrolled with hyperglycemia, not at goal. Suspect noncompliance with medication, as she has had multiple ED visit with hyperglycemia. Today she reports she is taking her medication and checking her blood sugar. Personally reviewed A1c (11/04/20) -11.6% care everywhere. Not at goal less than 7% Medication- Continue Metformin 1000mg po bid, Lantus 20 units daily, Novolog 6 units - 15 minutes prior meals. Has been approved for an Omnipod. Needs training with Aleyda Paez. Phone number provided. Monitor blood sugar 2x times a day. Encouraged annual eye exam. Obtaining eye exam today. Monofilament foot exam completed, protective senses intact Urine microalbumin/creatinine ratio -<30 Currently not on AUDI/ARB , at goal <30 Personally reviewed labs: (11/04/20) In care everywhere. BUN- 11, creatinine- 0.52 GFR- >60 Kidney function- normal B/P today- 124/80, currently not on AUDI/ARB. at Goal blood pressure is <140/90 and as close to 120/80 as possible. Personally reviewed LDL - 99, currently on atorvastatin 80 mg daily. Not at Goal of less than 70-reports not taking this medication. history of macrovascular disease - CVA Assessment & Plan (11/13/2020 4:23 PM CDT): This is a chronic condition which is uncontrolled with hyperglycemia, not at goal. Suspect noncompliance with medication, as she has had multiple ED visit with hyperglycemia and has reported not taking medication and checking her blood sugar. Personally reviewed A1c (11/04/20) -11.6% care everywhere. Not at goal less than 7% Medication- Continue Metformin 1000mg po bid, increase 75/25 18 units in am and 22 units in pm. Monitor blood sugar 2x times a day. Encouraged annual eye exam. Monofilament foot exam completed, protective senses intact, loss of protective senses. Treated with Gabapentin/Lyrica Urine microalbumin/creatinine ratio -<30 Currently not on AUDI/ARB , at goal <30 Personally reviewed labs: (11/04/20) In care everywhere. BUN- 11, creatinine- 0.52 GFR- >60 Kidney function- normal B/P today- 136/88 , currently not on AUDI/ARB. Not at Goal blood pressure is <140/90 and as close to 120/80 as possible. Personally reviewed LDL - 99, currently on atorvastatin 80 mg daily. Not at Goal of less than 70-reports not taking this medication. history of macrovascular disease - CVA Assessment & Plan (12/12/2019 12:22 PM CDT): Diagnosed in 2014. Started on insulin in the hospital August 2017. Control : poor control due to non-compliance with insulin A1c 9.0% on 12/11/2019 A1c was 10.2% on 08/21/17 Kidney: normal kidney functions. GFR 63 on 06/26/19. Neuropathy : mild Plan: Patient asked to watch diet. Patient informed that we need to get blood sugar lower to prevent complications. Start back on 70/30 insulin to 15 U Qam and 15 U Qpm with dinner. Continue metformin bid. Monitor sugars 2-3 x per day and bring records. Hypoglycemia symptoms and treatment reviewed with patient. Call if having low sugars. Ophthalmology exam . Intractable low back pain Narcolepsy Hypertension associated with type 2 diabetes baylee litus Assessment & Plan (02/09/2024 8:44 AM CDT): This is a chronic condition which is at goal. Goal is less than 140/90 Continue losartan, metoprolol Encouraged to monitor weight and B/P at home. Assessment & Plan (12/30/2022 1:53 PM CDT): This is a chronic condition which is at goal of less than 140/90 Personally reviewed labs. Continue losartan Encouraged to monitor weight and B/P at home Encouraged to take medications as prescribed. Primary osteoarthritis of right hip Degenerative disc disease, lumbar Resolved Problems Problem Noted Date Diagnosed Date Resolved Date Hyperglycemia 03/26/2021 Left sided numbness 03/26/20 21 Secondary hypertension 03/26 Left hip pain 03/26/2021 Encounters Date Type Department Care Team Description 09/04/2024 Telephone [facility] Primary Care at [address] [phone] Jayne Benítez NP 09/03/2024 3:30 PM CDT Office Visit [facility] Diabetes Endocrine Care at [address] [phone] Jayne Benítez NP Type 2 diabetes mellitus with hyperglycemia, with long-term current use of insulin (HCC) (Primary Dx); Mixed hyperlipidemia; Primary hypertension; Class 3 severe obesity due to excess calories with serious comorbidity and body mass index (BMI) of 40.0 to 44.9 in adult (HCC); Omnipod Dash insulin pump in place; Mixed diabetic hyperlipidemia associated with type 2 diabetes mellitus (HCC); Hypertension associated with type 2 diabetes mellitus (HCC) 08/27/2024 Telephone [facility]ocrine Care at [address] [phone] Jayne Benítez NP from Last 3 Months Immunizations Immunization Administration Dates Next Due Influenza, Unspecified 02/05/2022 Surgical History Surgery Date Site/Laterality Comments KNEE SURGERY Medical History Medical History Date Comments Diabetes (HCC) Obesity History of deep vein thrombosis (DVT) of lower e xtremity IDDM (insulin dependent diabetes mellitus) Stroke (HCC) Hyperglycemia Left sided numbness Left hip pain Secondary hypertension Social History Tobacco Use Types Packs/Day Years Used Date Smoking Tobacco: Never Smokeless Tobacco: Never Tobacco Cessation:Counseling Given: Not Answered Alcohol Use Standard Drinks/Week Comments No 0 (1 standard drink = 0.6 oz pur e alcohol) Social Connection and Isolat ion Panel [NHANES] Answer Date Recorded In a typical week, how many times do you talk on the phone with family, friends, or neighbors? Three times a week 11/11/2022 How often do you get togethe r with friends or relatives? Twice a week 11/11/2022 How often do you attend chur ch or congregational services? More than 4 times per year 11/11/2022 Do you belong to any clubs o r organizations such as caodaism groups, unions, fraternal or athletic groups, or school groups? No 11/11/2022 How often do you attend meet ings of the clubs or organizations you belong to? Never 11/11/2022 Are you , , di vorced, , never , or living with a partner? 11/11/2022 AUDIT-C Answer Date Recorded Q1: How often do you have a drink containing alcohol? Never 06/15/2022 Q2: How many drinks containi ng alcohol do you have on a typical day when you are drinking? Patient does not drink Frequency of Binge Drinking Not on file 12/2022 Overall Financial Resource Strain (CARDIA) Answe r Date Recorded How hard is it for you to pa y for the very basics like food, housing, medical care, and heating? Not hard at all 11/11/2022 Hunger Vital Sign Answer Date Recorded Within the past 12 months, y ou worried that your food would run out before you got the money to buy more. Never true 11/12/19 23 Within the past 12 months, t he food you bought just didn't last and you didn't have money to get more. Never true 11/11/2022 PRAPARE - Transportation Answer Date Re corded In the past 12 months, has l ack of transportation kept you from medical appointments or from getting medications? No 11/2022 In the past 12 months, has l ack of transportation kept you from meetings, work, or from getting things needed for daily living? No 11/11/2022 Housing Stability Vital Sign Answer Vinay e Recorded In the last 12 months, was t here a time when you were not able to pay the mortgage or rent on time? No 11/11/2022 In the last 12 months, how many places have you lived? 1 11/11/2022 In the last 12 months, was t here a time when you did not have a steady place to sleep or slept in a longterm (including now)? No 11/11/2022 Personal Safety Answer Date Recorded Have you ever been in or are you currently in a harmful physical or emotional relationship or is someone making you feel afraid or unsafe? Denies 11/10/2022 Education Answer Date Recorded What is the highest level of school you have completed or the highest degree you have received? Associate degree: academic program 11/11/2022 Comments No Sex and Gender Information Value Date Recorded Sex Assigned at Not on file Legal Sex Female 6:35 PM CDT Gender Identity Female 01/02/2023 9:44 AM CDT Sexual Orientation Not on file Obstetrics History Para Term AB IAB SAB Ectopic Multiple Livin g Live Births 3 3 3 Date Outcome GA Total Labor Labor/2nd/3rd Weight Sex Type Anes PTL Lorraine A1 A5 Name Clin Term Term Term Last Filed Vital Signs Vital Sign Reading Time Taken Comments Blood Pressure 122/74 09/03/2024 3:11 PM CDT Pulse 100 03/28/2024 11:24 AM DIVINITY TEACHER Temperature 36 C (96.8 F) 11/15/2022 7:46 AM CDT Respiratory Rate 18 09/15/2023 12:28 PM CDT Oxygen Saturation 97% 03/28/2024 11:24 AM DIVINITY TEACHER Inhaled Oxygen Concentration - - Weight 96.7 kg (213 lb 1.6 oz) 09/03/2024 3:11 P M CDT Height 152.4 cm (5') 09/03/2024 3:11 PM CDT Body Mass Index 41.62 09/03/2024 3:11 PM CDT Plan of Treatment Health Maintenance Due Date Last Done Comments Cervical Cancer Screening 1976 Colon Cancer Screening-Colonoscopy 1976 Depression Screening 1976 Hepatitis C Screening 1976 DTaP/Tdap/Td Vaccine (1 - Tdap) 02/11/1987 Hepatitis B Screening 02/11/1994 Regular Well Visit/Exam 18-64 02/11/1994 Pneumococcal vaccine <65 (1 of 2 - PCV) 02/11/1995 Foot Exam 11/12/2022 11/12/2021, 10/06, 09/03/2021, Additional history exists Dilated Eye Exam 11/27/2022 11/27/2020 Breast Cancer Screening-Mammogram 01/04/2024 023 Influenza Vaccine (Season Ended) 2025 02/06/20, 01/29/2018 Albumin Creatinine Ratio, Urine 02/08/2025 02/09/2024, 12/30/2022, 09/07/2021 eGFR 02/08/2025 02/09/2024, 02/05, 02/21/2023, Additional history exists Hemoglobin A1C 03/05/2025 09/03/2024, 100 08/2023, 12/30/2022, Additional history exists Lipid Panel 07/25/2025 07/25/2024, 100 08/2023, 12/30/2022, Additional history exists Procedures Procedure Name Priority Date/Time Associated Diagnosis Comments POCT HEMOGLOBIN A1C Routine 09/03/2024 3:20 PM CDT Type 2 diabetes mellitus with hyperglycemia, with long-term current use of insulin (HCC) POCT GLUCOSE Routine 09/03/2024 3:13 PM CDT Type 2 diabetes mellitus with hyperglycemia, with long-term current use of insulin (HCC) EGFR Routine 02/09/2024 8:50 AM CDT Type 2 diabetes mellitus with hyperglycemia, with long-term current use of insulin (HCC) LIPID PANEL Routine 02/09/2024 8:50 AM CDT Type 2 diabetes mellitus with hyperglycemia, with long-term current use of insulin (HCC) ALBUMIN CREATININE RATIO, URINE Routine 02/09/2024 8:50 AM CDT Type 2 diabetes mellitus with hyperglycemia, with long-term current use of insulin (HCC) SCREENING MAMMOGRAM BILATERAL W ATILIO Schedule Routine, Read Routine (OP Routine) 01/03/2023 4:21 PM CDT Screening mammogram, encounter for DIABETIC EYE EXAM Routine 11/27/2020 HM DIABETES FOOT EXAM Routine 10/23/2017 from Last 3 Months or Most Recently Relevant to Health Maintenance Results * (ABNORMAL) POCT hemoglobin A1c (09/03/2024 3:20 PM CDT) Hemoglobin A1C, POC 11.5 4.0 - 5.6 % Blood 09/03/2024 3:20 PM CDT us Jayne Benítez NP POINT OF CARE TEST ORDERABLES F inal Result * POCT glucose (09/03/2024 3:13 PM CDT) Glucose Blood, POC 334 mg/dL Blood 09/03/2024 3:13 PM CDT us Jayne Benítez NP POINT OF CARE TEST ORDERABLES F inal Result * eGFR (02/09/2024 8:50 AM CDT) eGFR >90 >=60 mL/min/1. 73 m2 Comment: Interpretive Data Reference Interval Normal >/= 90 mL/min/1.73m2 Mildly decreased* 60 - 89 mL/min/1.73m2 Mildly to moderately decreased 45 - 59 mL/min/1.73m2 Moderately to severely decreased 30 - 44 mL/min/1.73m2 Severely decreased 15 - 29 mL/min/1.73m2 Kidney Failure < 15 mL/min/1.73m2 *Relative to young adult level Estimated glomerular filtration rate is determined by the 2020 CKD-EPI equation recommended by the National Kidney Foundation (A Unifying Approach to GFR Estimation: Recommendations of the NKF-ASK Task Force on Reassessing the Inclusion of Race in Diagnosing Kidney Disease, JASN 2020). The CKD-EPI equation should not be used for patients with unstable renal function and has not been validated in children and those over 70. Current interpretive data was last reviewed 2021. Blood 02/09/2024 8:50 AM CDT 02/09/2024 6:21 PM CDT Jayne Benítez PRODUCTIVITY ENGINEER LAB BLOOD ORDERABLES Final Resu lt Performing Organization Address [facility] de Phone Number MITCHEL KENNEDY [address] [facility] [place] [address] * Albumin Creatinine Ratio, Urine (02/09/2024 8:50 AM CDT) Albumin Ur <12.0 mg/L Comment: Interpretive Data No reference range established. Current interpretive data was last revised 2018. Creatinine Ur 96.5 mg/dL [facility] Comment: Interpretive Data No reference range established. Current interpretive data was last revised 2018. Albumin Creatinine Ratio, Ur <12 1 - 29 mg/g [facility] Urine 02/09/2024 8:50 AM CDT 02/09/2024 6:19 PM CDT Jayne Benítez PRODUCTIVITY ENGINEER LAB URINE ORDERABLES Final Resu lt Performing Organization Address [facility] de Phone Number MITCHEL KENNEDY [address] [place] [address] * (ABNORMAL) Lipid panel (02/09/2024 8:50 AM CDT) Cholesterol 205(H) 30 - 199 mg/dL Comment: Interpretive Data Ages < or = 19 years Acceptable: <170 mg/dL Borderline high: 170-199 mg/dL High: >or= 200 mg/dL Ages > or = 20 years Desirable: <200 mg/dL Borderline high: 200-239 mg/dL High: >or= 240 mg/dL Literature References: 1. Expert Panel on Integrated Guidelines for Cardiovascular Health and Risk Reduction in Children and Adolescents. Pediatrics 2011;128:S213 2. NCEP Expert Panel. Circulation 2004;110:227 Current Interpretive Data was last revised on 2017. Triglycerides 104 <=149 mg/dL [facility] Comment: Interpretive Data Ages < or = 9 years Acceptable: <75 mg/dL Borderline high: 75-99 mg/dL High: >or= 100 mg/dL Ages 10 to 20 years Acceptable: <90 mg/dL Borderline high: 90-129 mg/dL High: >or= 130 mg/dL Ages > or = 20 years Desirable: <150 mg/dL Borderline high: 150-199 mg/dL High: 200-499 mg/dL Very high: >or= 499 mg/dL Literature References: 1. Expert Panel on Integrated Guidelines for Cardiovascular Health and Risk Reduction in Children and Adolescents. Pediatrics 2011;128:S213 2. NCEP Expert Panel. Circulation 2004;110:227 Current Interpretive Data was last revised on 2017. HDL 42 >=40 mg/dL [facility] Comment: Interpretive Data Ages < or = 19 years Acceptable: >45 mg/dL Borderline low: 40-45 mg/dL Low: <40 mg/dL Ages > or = 20 years Desirable: >or= 60 mg/dL Low: <40 mg/dL Literature References: 1. Expert Panel on Integrated Guidelines for Cardiovascular Health and Risk Reduction in Children and Adolescents. Pediatrics 2011;128:S213 2. NCEP Expert Panel. Circulation 2004;110:227 Current Interpretive Data was last revised on 2017. LDL, calculated 144(H) <=129 mg/dL [facility] Comment: Interpretive Data Ages < or = 19 years Acceptable: <110 mg/dL Borderline high: 110-129 mg/dL High: >or= 130 mg/dL Ages > or = 20 years Optimal: <100 mg/dL Near optimal: 100-129 mg/dL Borderline high: 130-159 mg/dL High: >160 mg/dL Calculated using the Deangelo LDL-C estimating equation. This equation was implemented on 2023. Prior to this date LDL-C was estimated using the Friedewald equation. Literature References: 1. Expert Panel on Integrated Guidelines for Cardiovascular Health and Risk Reduction in Children and Adolescents. Pediatrics 2011;128:S213 2. NCEP Expert Panel. Circulation 2004;110:227 3. Deangelo Dewey al. SERGIO Cardiol. 2020 September 05;5(5):540-548. doi: 10.1001/jamacardio.2020.0013 Current Interpretive Data was last revised on 2023. Non-HDL Cholesterol 163 mg/dL [facility] Comment: Interpretive Data Ages < or = 19 years Acceptable: <120 mg/dL Borderline high: 120-144 mg/dL High: >145 mg/dL Ages > or = 20 years When triglycerides are >200 mg/dL, Non-HDL cholesterol is a secondary target of therapy with treatment goals that are 30 mg/dL greater than the LDL cholesterol target. Literature References: 1. Expert Panel on Integrated Guidelines for Cardiovascular Health and Risk Reduction in Children and Adolescents. Pediatrics 2011;128:S213 2. NCEP Expert Panel. Circulation 2004;110:227 Current Interpretive Data was last revised on 2017. Chol/HDL ratio 5 [facility] Blood 02/09/2024 8:50 AM CDT 02/09/2024 6:19 PM CDT Narrative [facility] - 02/09/2024 6:43 PM CDT These lab test should be done fasting. This means do not eat or drink for at least 12 hours prior to getting your blood drawn. Has the patient been fasting for 8 hours or more?->Yes us Jayne Benítez NP LAB BLOOD ORDERABLES Final Resu lt [facility] [address] Department of Laboratories [place], [place] [id number] * Screening Mammogram Bilateral W Atilio (01/03/2023 4:21 PM CDT) Anatomical Region Laterality Modality Breast Bilateral Mammography 01/03/2023 4:40 PM CDT Impressions 01/03/2023 4:40 PM CDT There is no mammographic evidence of malignancy. A 1 year screening mammogram is recommended. BI-RADS: 1 - Negative. The patient has been or will be contacted. The patient will be entered into a reminder system with a target due date of 1 year for her next mammogram. Electronically signed by: Girish Sandoval M.D. Narrative 01/03/2023 4:40 PM CDT EXAMINATION: SCREENING MAMMOGRAM BILATERAL W ATILIO ORDERING HEALTHCARE PROVIDER: SELF SCREENING MAMMOGRAM HISTORY: Routine screening mammography. COMPARISON: None available, baseline mammogram TECHNIQUE: CC and MLO views of the bilateral breasts were obtained with digital technique using breast tomosynthesis with C view. Computer aided detection was utilized. FINDINGS: DENSITY: The tissue of the bilateral breasts is almost entirely fatty. BREASTS: There are no suspicious masses, suspicious calcifications, or other suspicious findings in either breast. us Self Screening Mammogram IMG MAMMO PROCEDURES Fi nal Result * Diabetic Eye Exam (11/27/2020) Historical Provider HEALTH MAINTENANCE Final Result * DIABETES FOOT EXAM (10/23/2017) Diabetic Foot Exam Unknown Historical Provider HEALTH MAINTENANCE Final Result from Last 3 Months or Most Recently Relevant to Health Maintenance Insurance [facility] AETNA [facility] Advance Directives For more information, please contact: [phone] * Full Code (Latest Code Status on File) Date Activated Date Inactivated Comments 11/10/2022 8:22 PM 11/15/2022 6:10 PM * Full Code Date Activated Date Inactivated Comments 06/15/2022 12:43 AM 06/16/2022 5:31 PM * Full Code Date Activated Date Inactivated Comments 08/21/2017 9:43 PM 08/24/2017 9:41 PM Care Teams Grinder Operator Tool Relationship Specialty Start Date End Date Eb Odell MD PCP - General 02/11/18 No, Physician 02/11/18 Eb Odell MD [address] [place] [address] [address] [place] [address] Referring Physician Family Medicine 01/10/18 Godfrey Gentile, PT Physical Therapist Physical Therapy 01/12/18 Elaine Rodarte, PT Physical Therapist Physical Therapy 01/29/18 Odette Pompa, ALEC [address] [place] [address] [address] [place] [address] Neurology 11/15/22
--- OUTSIDE RECORDS SUMMARY | 2024-09-16 11:13 | XMS_ITS | Encounter Summary ---
Author Organization [facility] Address [address] [place] [address] Phone Care Team Providers Care Dictionary Editor Name Role Phone Eb Odell MD Primary Care Provider [phone] Iva Warner APRN, GROUP DIRECTOR EXPERIENCE Unavailable Encounter Details Date Type Department Care Team (Late st Contact Info) Description 04/29/2024 Transcribe Orders [facility] Call [facility] [address] [place] [address] Iva Warner APRN, GROUP DIRECTOR EXPERIENCE [address] [place] [address] Upper abdominal pain (Primary Dx) Social History Tobacco Use Types Packs/Day Years Used Date Smoking Tobacco: Never Smokeless Tobacco: Never Alcohol Use Standard Drinks/Week Comments Not Currently 0 (1 standard drink = 0.6 oz pur e alcohol) Sexually Active Control Partners Comments Not Currently Comments No Sex and Gender Information Value Date Recorded Sex Assigned at Not on file Legal Sex Female 9:33 AM DIRECTOR OF INSTITUTIONAL GIVING Gender Identity Not on file Sexual Orientation Not on file documented as of this encounter Plan of Treatment Not on file documented as of this encounter Results * UR TEST QUAL (05/10/2024 7:33 AM DIRECTOR OF INSTITUTIONAL GIVING) PREG TEST,MONOCLONA L Negative 05/10/2024 7:33 AM DIRECTOR OF INSTITUTIONAL GIVING [facility] Urine Non-Phlebotomy Collection / Unknown 05/10/2024 7:33 AM DIRECTOR OF INSTITUTIONAL GIVING 05/10/2024 7:33 AM DIRECTOR OF INSTITUTIONAL GIVING Iva Warner APRN, CNP URINE ORDERABLES Final Result [facility] [address] [place] [address] documented in this encounter Visit Diagnoses Diagnosis Upper abdominal pain- Primary Abdominal pain, other specified site documented in this encounter Care Teams Dictionary Editor Relationship Specialty Start Date End Date Eb Odell MD [address] [place] [address] PCP - General Family Medicine 05/01/21 Iva Warner APRN, CNP [address] [place] [address] Nurse Practitioner Advanced Practice Nurse 09/15/23 documented as of this encounter
--- OUTSIDE RECORDS SUMMARY | 2024-09-16 11:13 | XMS_ITS | Clinical Summary ---
Author Organization [facility] Address [address] [facility], [place] [address] Phone Care Team Providers Care Behavioral Health Counselor Name Role Phone Eb Odell MD Primary Care Provider [phone] Iva Warner APRN, CLASSIFICATIONS OFFICER CC/CM Unavailable Allergies Active Allergy Reactions Criticality Noted Date Comments Metformin Rash 05/23/2024 Penicillins Rash 11/04/2020 Sulfa Antibiotics Anaphylaxis 11/04/2020 Medications insulin aspart (NovoLOG) 100 UNIT/ML Solution 15 Units by Subcutaneous route 3 times daily (after meals). Active aspirin 81 MG Chewable Tablet Take 1 Tablet by mouth daily. 30 Tablet 2 Active Dulaglutide (Trulicity) 1.5 MG/0.5ML Solution Pen-injector 1.5 mg by Subcutaneous route every 7 days. On sundays Active traMADol (ULTRAM) 50 MG TabletIndicatio ns:Pain of left calf Take 1 Tablet by mouth every 8 hours as needed for Moderate or more severe pain. 12 Tablet 3 Active busPIRone (BUSPAR) 10 MG Tablet Take 10 mg by mouth 2 times daily. Active naproxen (NAPROSYN) 500 MG Tablet Take 1 Tablet by mouth 2 times daily as needed for Mild or more severe pain. 20 Tablet 4 Active losartan (COZAAR) 25 MG Tablet Take 25 mg by mouth daily. Active modafinil (PROVIGIL) 200 MG Tablet Take 1 Tablet by mouth 2 times daily. 4 Active Active Problems Problem Noted Date Diagnosed Date Palpitations 07/26/2024 Right sided weakness 07/25/2024 Hypertension 07/25/2024 Insomnia 07/25/2024 Anxiety 07/25/2024 Colon polyps 01/31/2024 Acute CVA (cerebrovascular accident) 09/28/2021 Type 2 diabetes mellitus with hyperglycemia 09/06 Hyponatremia 09/28/2021 Hypochloremia 09/28/2021 History of DVT (deep vein thrombosis) 09/28/2021 Muscle weakness of left upper extremity 11/05/19 21 Morbid obesity 11/04/2020 Diabetes mellitus type 2 in obese 11/04/2020 Insulin dependent type 2 diabetes mellitus 11/04 Transaminitis 11/04/2020 Resolved Problems Problem Noted Date Diagnosed Date Resolved Date Left-sided weakness 01/19/2022 01/21/20 22 History of CVA (cerebrovascu lar accident) without residual deficits 09/28/2021 07/26/2024 Dizziness 11/04/2020 11/06/2020 Headache 11/04/2020 11/06/2020 Encounters Date Type Department Care Team Description 07/26/2024 12:28 PM CDT - 07/26/2024 11:59 PM CDT Hospital Encounter [facility] [address] [place] [address] Mary Rodriguez MD Discharge Disposition: Discharged to home or Selfcare 07/24/2024 12:46 PM CDT - 07/26/2024 11:45 AM CDT [facility] [address] [place] [address] Timothy Aiken MD Patel, Satyen V, MD Right sided weakness Discharge Disposition: Home Health Care c 07/24/2024 Travel from Last 3 Months Family History Medical History Relation Name Comments Cancer Mother Breast Hypertension Mother Diabetes Paternal Grandfather Diabetes Paternal Grandmother Relation Name Status Comments Mother Alive Paternal Grandfather Paternal Grandmother Social History Tobacco Use Types Packs/Day Years Used Date Smoking Tobacco: Never Smokeless Tobacco: Never Tobacco Cessation:Counseling Given: Not Answered Alcohol Use Standard Drinks/Week Comments Not Currently 0 (1 standard drink = 0.6 oz pur e alcohol) [facility] Utilities Answer Date Recorded In the past 12 months has e electric, gas, oil, or water company threatened to shut off services in your home? No 07/24/2024 Social Connection and Isolat ion Panel [NHANES] Answer Date Recorded In a typical week, how many times do you talk on the phone with family, friends, or neighbors? More than three times a week 07/24/2024 How often do you get togethe r with friends or relatives? More than three times a week 07/24/2024 How often do you attend chur ch or confucianist services? Never 07/24/2024 Do you belong to any clubs o r organizations such as catholic groups, unions, fraternal or athletic groups, or school groups? Patient unable to answer 07/24/2024 How often do you attend meet ings of the clubs or organizations you belong to? Never 07/24/2024 Are you , , di vorced, , never , or living with a partner? 07/24/2024 AUDIT-C Answer Date Recorded Q1: How often do you have a drink containing alcohol? Never 07/24/2024 Q2: How many drinks containi ng alcohol do you have on a typical day when you are drinking? Patient does not drink Q3: How often do you have si x or more drinks on one occasion? Never 07/24/2024 Overall Financial Resource Strain (CARDIA) Answe r Date Recorded How hard is it for you to pa y for the very basics like food, housing, medical care, and heating? Not hard at all 07/24/2024 [facility] [place] of Occupat ional Health - Occupational Stress Questionnaire Answer Date Recorded Do you feel stress - tense, restless, nervous, or anxious, or unable to sleep at night because your mind is troubled all the time - these days? Not at all 07/24/2024 Exercise Vital Sign Answer Date Recorde d On average, how many days pe r week do you engage in moderate to strenuous exercise (like a brisk walk)? 2 days 07/24/2024 On average, how many minutes do you engage in exercise at this level? 60 min 07/24/2024 Hunger Vital Sign Answer Date Recorded Within the past 12 months, y ou worried that your food would run out before you got the money to buy more. Never true 07/25/19 25 Ran Out of Food in the Last Year Not on file 07/24/2024 PRAPARE - Transportation Answer Date Re corded In the past 12 months, has l ack of transportation kept you from medical appointments or from getting medications? No 07/24/2024 Lack of Transportation (Non-Medical) Not on file 07/24/2024 Housing Stability Vital Sign Answer Vinay e Recorded In the last 12 months, was t here a time when you were not able to pay the mortgage or rent on time? No 07/24/2024 In the past 12 months, how m any times have you moved where you were living? 0 07/24/2024 At any time in the past 12 m [facility], were you homeless or living in a snf (including now)? 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 Gender Identity Not on file Sexual Orientation Not on file Last Filed Vital Signs Vital Sign Reading Time Taken Comments Blood Pressure 120/70 07/26/2024 2:00 AM CDT Pulse 70 07/26/2024 6:00 AM CDT Temperature 36.4 C (97.5 F) 07/26/2024 3:00 AM CDT Respiratory Rate 16 07/26/2024 6:00 AM CDT Oxygen Saturation 98% 07/26/2024 7:43 AM CDT Inhaled Oxygen Concentration - - Weight 90.7 kg (199 lb 15.3 oz) 07/25/2024 8:26 AM CDT Height 154.9 cm (5' 1 ) 07/25/2024 8:26 AM CDT Body Mass Index 37.78 07/25/2024 8:26 AM CDT Plan of Treatment Health Maintenance Due Date Last Done Comments Diabetes: Eye Exam 1976 Diabetes: Foot Exam 1976 Hepatitis C Virus (HCV) Screening 1975 Hepatitis B Immunization (1 of 3 - 19+ 3-dose series) 02/11/1995 Pneumococcal Immunization Combined (1 of 2 - PCV) 02/11/1995 Mammogram 01/04/2024 01/03/2023 SARS-COV-2 Immunization ( season) 2024 04/29/2021, 08/21/2020, 07/24/2020 Influenza Immunization (Season Ended) 2025 02/23/2023, 02/05/2022, 04/29/2021, Additional history exists Diabetes: Hemoglobin A1c 01/24/2025 025, 02/09/2024, 12/30/2022, Additional history exists Diabetes: Nephropathy Screening 06/05/2025 06/05/2024, 05/23/2024, 03/04/2024, Additional history exists Immunochemical Fecal Occult Blood 02/11/2026 09/16/2023 Colonoscopy 01/30/2034 01/31/2024 Colorectal Cancer Screening 01/30/2034 Respiratory Syncytial Virus (RSV) Immunization (Adult) (1 - 1-dose 75+ series) 02/11/2051 01/31/2024 Discussion re Starting/Frequency of Mammograms Completed 01/03/2023 DTaP/Tdap/Td Immunization Discontinued 08/21/2023 TdaP Immunization Completed 08/21/2023 Human Papillomavirus (HPV) Immunization Aged Out No longer eligible based on patient's age to complete this topic Meningococcal Immunization (ACWY) Aged Out No longer eligible based on patient's age to complete this topic Rotavirus Immunization Aged Out No lo nger eligible based on patient's age to complete this topic Procedures Procedure Name Priority Date/Time Associated Diagnosis Comments EVENT RECORDER, 30-DAY Routine 07/26/2024 12:28 PM CDT Unilateral weakness POCT GLUCOSE Routine 07/26/2024 7:57 AM CDT CBC WITH AUTO DIFFERENTIAL Routine 07/26/2024 5:15 AM CDT BASIC METABOLIC PANEL W/ CALCIUM TOTAL Routine 07/26/2024 5:15 AM CDT COMPLETE BLOOD COUNT (CBC) WITH DIFF Routine 07/26/2024 5:15 AM CDT RHYTHM STRIP 07/26/2024 12:00 AM CDT RHYTHM STRIP 07/26/2024 12:00 AM CDT POCT GLUCOSE Routine 07/25/2024 10:17 PM CDT XR CERVICAL SPINE MINIMUM 4 VIEWS (4 OR 5V) Stat with Interpretation 07/25/2024 8:10 PM CDT POCT GLUCOSE Routine 07/25/2024 4:33 PM CDT POCT GLUCOSE Routine 07/25/2024 12:28 PM CDT MRI BRAIN W/O CONTRAST Routine 07/25/2024 12:04 PM CDT POCT GLUCOSE Routine 07/25/2024 7:43 AM CDT POCT GLUCOSE Routine 07/25/2024 6:18 AM CDT CBC WITH AUTO DIFFERENTIAL Routine 07/25/2024 3:52 AM CDT BASIC METABOLIC PANEL W/ CALCIUM TOTAL Routine 07/25/2024 3:52 AM CDT COMPLETE BLOOD COUNT (CBC) WITH DIFF Routine 07/25/2024 3:52 AM CDT LIPID PANEL Routine 07/25/2024 3:52 AM CDT POCT GLUCOSE Routine 07/25/2024 12:46 AM CDT RHYTHM STRIP 07/25/2024 12:00 AM CDT RHYTHM STRIP 07/25/2024 12:00 AM CDT RHYTHM STRIP 07/25/2024 12:00 AM CDT POCT GLUCOSE Routine 07/24/2024 10:38 PM CDT POCT GLUCOSE Routine 07/24/2024 8:04 PM CDT XR CHEST SINGLE VIEW PORTABLE Routine 07/24/2024 7:53 PM CDT MRSA NASAL PCR Routine 07/24/2024 7:33 PM CDT MRSA NASAL BY PCR Routine 07/24/2024 7:3 3 PM CDT URINALYSIS REFLEX IF INDICATED BY ABNORMAL RESULTS STAT 07/24/2024 5:31 PM CDT URINALYSIS REFLEX IF INDICATED BY ABNORMAL RESULTS STAT 07/24/2024 5:31 PM CDT URINE DRUG SCREEN STAT 07/24/2024 5:[address] ANGIO HEAD AND NECK WWO CONTRAST W PP Stat with Interpretation 07/24/2024 4:10 PM CDT CREATINE KINASE (CK) TOTAL STAT 07/24/2024 2:15 PM CDT C-REACTIVE PROTEIN (CRP) QUANT STAT 07/24/2024 2:15 PM CDT TEST FOR ACETONE/KETONES STAT 07/24/2024 2:15 PM CDT CBC WITH AUTO DIFFERENTIAL STAT 07/24/2024 1:01 PM CDT HEPATIC FUNCTION PANEL Routine 07/24/2024 1:01 PM CDT HEMOGLOBIN A1C W/ ESTIMATED GLUCOSE STAT 07/24/2024 1:01 PM CDT PROTIME (PT) (PROTHROMBIN TIME) STAT 07/24/2024 1:01 PM CDT APTT (PTT) STAT 07/24/2024 1:01 PM CDT BASIC METABOLIC PANEL W/ CALCIUM TOTAL STAT 07/24/2024 1:01 PM CDT COMPLETE BLOOD COUNT (CBC) WITH DIFF STAT 07/24/2024 1:01 PM CDT EKG 12 LEAD STAT 07/24/2024 12:[address] STROKE HEAD WO CONTRAST Stat with Interpretation 07/24/2024 12:55 PM CDT POCT GLUCOSE STAT 07/24/2024 12:47 PM CDT RHYTHM STRIP 07/24/2024 12:00 AM CDT EKG SCAN 07/24/2024 12:00 AM CDT CMP (COMPREHENSIVE METABOLIC PANEL) STAT 06/05/2024 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 Average heart rate 95 bpm - Underlying rhythm: Sinus rhythm at 89 beats per minute - Events recorded: Patient triggered events: 4 Auto trigerred events: No serious events All patient activations for flutter or skipped heartbeat, chest pain or pressure, and fatigue correlated with sinus rhythm and sinus tachycardia up to 114 beats per minute Arrhythmias: 1. Atrial fibrillation: None 2. SVT : None 3. Pauses: None 4. Heart block: None 5. VT: None 6. PAC burden: Less than 1% 7. PVC burden: Less than 1% Impression: -No significant arrhythmias reported. Symptoms correlated with sinus rhythm and sinus tachycardia. Pham Geiger MD, [place], [facility] Interventional and Structural Cardiology [facility] Production Specialistnurse companion [facility] Email: [email or web address] Office phone: [phone] [place] ([place]) Office: [phone] Procedure Note Pham Geiger MD - 07/26/2024 1:15 PM CDT Cardiac event monitor report-[facility] [place]: Duration of monitorin days Dates of monitoring: From July 26 to August 24, 2024 Diagnosis: Weakness Findings: - Heart rate range from 67 to 137 beats per minute. Average heart rate 95bpm - Underlying rhythm: Sinus rhythm at 89 beats per minute - Events recorded: Patient triggered events: 4 Auto trigerred events: No serious events All patient activations for flutter or skipped heartbeat, chest pain orpressure, and fatigue correlated with sinus rhythm and sinus tachycardiaup to 114 beats per minute Arrhythmias: 1. Atrial fibrillation: None 2. SVT : None 3. Pauses: None 4. Heart block: None 5. VT: None 6. PAC burden: Less than 1% 7. PVC burden: Less than 1% Impression: -No significant arrhythmias reported. Symptoms correlated with sinusrhythm and sinus tachycardia. Pham Geiger MD, CHAR[place], [facility] Interventional and Structural Cardiology [facility] Health Production Specialistnurse companion [facility] [employer] Email: [email or web address] Office phone: [phone] [place] ([place]) Office: [phone] us Mary Foote MD IMG ECG ORDERABLES Final Resu lt * (ABNORMAL) POCT Glucose (07/26/2024 7:57 AM CDT) Only the most recent of10 resultswithin the time period is included. [facility] GLUCOSE,BEDSID E POCT 216(H) 70 - 99 mg/dL 07/26/2024 8:02 AM CDT [facility] Blood 07/26/2024 7:57 AM CDT 07/26/2024 8:02 AM CDT us None Provider POINT OF CARE TESTING Final Resu lt [facility] [address] [place] [address] * CBC with Auto Differential (07/26/2024 5:15 AM CDT) Only the most recent of3 resultswithin the time period is included. [facility] WBC 5.94 4.00 - 12.00 10(3)/mcL 07/26/2024 5:46 AM CDT [facility] RBC 5.01 3.80 - 5.30 10(6)/mcL 07/26/2024 5:46 AM CDT [facility] HEMOGLOBIN (HGB) 14.8 12.0 - 15.8 g/dL 07/26/2024 5:46 AM CDT [facility] HEMATOCRIT (HCT) 46.2 36.0 - 47.0 % 07/26/2024 5:46 AM CDT [facility] MCV 92.2 82.0 - 96.0 fL 07/26/2024 5:46 AM CDT [facility] MCH 29.5 26.0 - 34.0 pg 07/26/2024 5:46 AM CDT [facility] MCHC 32.0 31.0 - 36.0 g/dL 07/26/2024 5:46 AM CDT [facility] PLATELET COUNT 179 140 - 440 10(3)/[facility] 07/26/2024 5:46 AM CDT [facility] RDW 11.9 11.8 - 15.5 % 07/26/2024 5:46 AM CDT [facility] MPV 12.2 9.7 - 12.4 fL 07/26/2024 5:46 AM CDT [facility] NEUTROPHILS 56.1 47.0 - 73.0 % 07/26/2024 5:46 AM CDT [facility] LYMPHOCYTES 31.8 18.0 - 42.0 % 07/26/2024 5:46 AM CDT [facility] MONOCYTES 7.1 4.0 - 12.0 % 07/26/2024 5:46 AM CDT [facility] EOSINOPHILS 4.2 0.0 - 5.0 % 07/26/2024 5:46 AM CDT [facility] BASOPHILS 0.8 0.0 - 1.0 % 07/26/2024 5:46 AM CDT [facility] ABSOLUTE NEUTROPHILS 3.33 1.60 - 7.70 10(3)/[facility] 07/26/2024 5:46 AM CDT [facility] ABSOLUTE LYMPHOCYTES 1.89 1.30 - 3.20 10(3)/[facility] 07/26/2024 5:46 AM CDT [facility] ABSOLUTE MONOCYTES 0.42 0.20 - 1.00 10(3)/[facility] 07/26/2024 5:46 AM CDT [facility] ABSOLUTE EOSINOPHIL 0.25 0.00 - 0.40 10(3)/[facility] 07/26/2024 5:46 AM CDT [facility] ABSOLUTE BASOPHILS 0.05 0.00 - 0.10 10(3)/[facility] 07/26/2024 5:46 AM CDT [facility] NRBC PER 100 WBC 0 07/27/19 5:46 AM CDT [facility] Blood Venipuncture / Unknown 07/26/2024 5:15 AM CDT 07/26/2024 5:31 AM CDT us Liza Jain POLICE MATRON, CLASSIFICATIONS OFFICER CC/CM HEMATOLOGY ORDERABLES Final Result [facility] [address] [place] [address] * (ABNORMAL) BMP with Ca, Total (07/26/2024 5:15 AM CDT) Only the most recent of3 resultswithin the time period is included. SODIUM 134(L) 136 - 145 mmol/L 07/26/2024 6:07 AM CDT [facility] POTASSIUM 4.2 3.5 - 5.1 mmol/L 07/26/2024 6:07 AM CDT [facility] CHLORIDE 108(H) 98 - 107 mmol/L 07/26/2024 6:07 AM CDT [facility] CO2, VENOUS 22 22 - 30 mmol/L 07/26/2024 6:07 AM CDT [facility] ANION GAP 8.2 <18.0 mmol/L 07/26/2024 6:07 AM CDT [facility] GLUCOSE 283(H) 70 - 99 mg/dL 07/26/2024 6:07 AM CDT [facility] BUN 14 5 - 18 mg/dL 07/26/2024 6:07 AM CDT [facility] CREATININE, BLOOD 0.66 0.60 - 1.00 mg/dL 07/26/2024 6:07 AM CDT [facility] BUN/CREATININE RATIO 21(H) 12 - 20 ratio 07/26/2024 6:07 AM CDT [facility] CALCIUM 8.3(L) 8.7 - 10.5 mg/dL 07/26/2024 6:07 AM CDT [facility] GFR, ESTIMATED >60 >=60 07/26/2024 6:07 AM CDT [facility] Comment: Creatinine Clearance is the preferred criteria for selecting drug dose adjustments in renally impaired patients. The GFR is provided as additional pertinent clinical information. GFR is reported in mL/min/1.73 sq m. Calculation based on the Chronic Kidney Disease Epidemiology Collaboration (CKD- EPI) equation refit without adjustment for race. GFR, EST. >60 >=60 025 6:07 AM CDT [facility] GFR, EST. NONAFRICAN >60 >=60 07/26/2024 6:07 AM CDT [facility] Blood Venipuncture / Unknown 07/26/2024 5:15 AM CDT 07/26/2024 5:32 AM CDT Liza Jain APRN, CLASSIFICATIONS OFFICER CC/CM CHEMISTRY ORDERABLES Final Result Performing Organization Address City/[facility] de Phone Number [facility] [address] [place] [address] * RHYTHM STRIP (07/26/2024 12:00 AM CDT) Only the most recent of6 resultswithin the time period is included. 07/26/2024 us Provider Scan IMG ECG ORDERABLES Final Result Performing Organization Address [facility] Phone Number RESULTING AGENCY * XR CERVICAL SPINE MINIMUM 4 VIEWS (4 OR 5V) (07/25/2024 8:10 PM CDT) Anatomical Region Laterality Modality Spine, C-spine N/A Digital Radiogra phy 07/25/2024 8:26 PM CDT Impressions 07/25/2024 8:28 PM CDT IMPRESSION: No acute osseous abnormality. Mild disc space narrowing at C5-C6. Grade 1 anterolisthesis of C4 on C5. Narrative 07/25/2024 8:28 PM CDT EXAM DESCRIPTION: XR CERVICAL SPINE MINIMUM 4 VIEWS (4 OR 5V) REASON FOR STUDY: r arm weakness TECHNIQUE: 5 radiographic view(s) of the cervical spine. COMPARISON: None available FINDINGS: No fracture or prevertebral soft tissue swelling. Mild disc space narrowing at C5-C6. There is straightening of the normal cervical lordosis. There is grade 1 anterolisthesis of C4 on C5. The osseous neural foramina are patent bilaterally. There is dextrocurvature of the cervical vertebral bodies. THIS IS AN ELECTRONICALLY VERIFIED FINAL REPORT 07/25/2024 8:26 PM - Electronically signed by Reji Gonsales M.D. JR: Report ID: [id number] Reading Location: [id number] Procedure Note Reji Gonsales MD - 07/25/2024 EXAM DESCRIPTION: XR CERVICAL SPINE MINIMUM 4 VIEWS (4 OR 5V) REASON FOR STUDY: r arm weakness TECHNIQUE: 5 radiographic view(s) of the cervical spine. COMPARISON: None available FINDINGS: No fracture or prevertebral soft tissue swelling. Mild disc space narrowing at C5-C6. There is straightening of the normal cervical lordosis. There is grade 1 anterolisthesis of C4 on C5. The osseous neural foramina are patent bilaterally. There is dextrocurvature of the cervical vertebral bodies. THIS IS AN ELECTRONICALLY VERIFIED FINAL REPORT 07/25/2024 8:26 PM - Electronically signed by Reji Gonsales M.D. JR: Report ID: [id number] Reading Location: [id number] IMPRESSION: No acute osseous abnormality. Mild disc space narrowing at C5-C6. Grade 1 anterolisthesis of C4 on C5. Mary Foote MD IMG DIAGNOSTIC ORDERABLES Fin al Result * MRI BRAIN W/O CONTRAST (07/25/2024 12:04 PM CDT) Anatomical Region Laterality Modality Head N/A Magnetic Resonan ce 07/25/2024 12:2 5 PM CDT Impressions 07/25/2024 12:27 PM CDT IMPRESSION: No acute intracranial process. Narrative 07/25/2024 12:27 PM CDT EXAM DESCRIPTION: MRI BRAIN W/O CONTRAST REASON FOR STUDY: Acute headache, blurred vision, right facial numbness, and right side of body heaviness since unspecified time yesterday without provision of last known normal. No provided history of trauma or inciting and/or aggravating events. Provided history of CVA 7 years ago without provision of residual neurologic deficits (and below-described multimodal neuroimaging not demonstrative of as much). No provided surgical history. TECHNIQUE: Multiplanar imaging includes non-contrasted T1, T2, FLAIR, and diffusion with ADC map sequences. Additional sequence(s) sensitive to blood products. Images stored on PACS. Patient motion artifact variably spanning multiple sequences, noting multiple sequences repeated, compromises evaluation. COMPARISON: CT head without contrast and CTA head/neck 07/24/2024, 01/19/2022, 09/28/2021, and 11/04/2020; CT head without contrast 12/26/2022 and 09/18/2022; MRI brain without contrast 11/04/2020; MRI brain without and with contrast 11/11/2022 (report without images). FINDINGS: CEREBRUM: No acute intra-axial hemorrhage. No edema, mass effect, midline shift, or herniation WHITE MATTER: Unremarkable. POSTERIOR FOSSA: Brainstem and cerebellum are unremarkable. DIFFUSION IMAGING: No restricted diffusion to suggest acute/subacute ischemia or infarct. EXTRAAXIAL SPACES: No extra-axial fluid collection. No extra-axial mass. BRAIN VOLUME: Within normal limits for age. PITUITARY: Unremarkable. VASCULATURE: No flow disturbance evident. CALVARIUM: Unremarkable. ORBITS: No acute abnormality. Ocular lenses and globes normal in conformation and position. PARANASAL SINUSES AND MASTOIDS: Well-aerated with no fluid levels. No mucosa thickening. OTHER: No other significant finding. THIS IS AN ELECTRONICALLY VERIFIED FINAL REPORT 07/25/2024 12:25 PM - Electronically signed by Fredis White M.D. MINE: MINE Report ID: [id number] Reading Location: [id number] Procedure Note Fredis White MD - 07/25/2024 EXAM DESCRIPTION: MRI BRAIN W/O CONTRAST REASON FOR STUDY: Acute headache, blurred vision, right facial numbness, and right side of body heaviness since unspecified time yesterday without provision of last known normal. No provided history of trauma or inciting and/or aggravating events. Provided history of CVA 7 years ago without provision of residual neurologic deficits (and below-described multimodal neuroimaging not demonstrative of as much). No provided surgical history. TECHNIQUE: Multiplanar imaging includes non-contrasted T1, T2, FLAIR, and diffusion with ADC map sequences. Additional sequence(s) sensitive to blood products. Images stored on PACS. Patient motion artifact variably spanning multiple sequences, noting multiple sequences repeated, compromises evaluation. COMPARISON: CT head without contrast and CTA head/neck 07/24/2024, 01/19/2022, 09/28/2021, and 11/04/2020; CT head without contrast 12/26/2022 and 09/18/2022; MRI brain without contrast 11/04/2020; MRI brain without and with contrast 11/11/2022 (report without images). FINDINGS: CEREBRUM: No acute intra-axial hemorrhage. No edema, mass effect, midline shift, or herniation WHITE MATTER: Unremarkable. POSTERIOR FOSSA: Brainstem and cerebellum are unremarkable. DIFFUSION IMAGING: No restricted diffusion to suggest acute/subacute ischemia or infarct. EXTRAAXIAL SPACES: No extra-axial fluid collection. No extra-axial mass. BRAIN VOLUME: Within normal limits for age. PITUITARY: Unremarkable. VASCULATURE: No flow disturbance evident. CALVARIUM: Unremarkable. ORBITS: No acute abnormality. Ocular lenses and globes normal in conformation and position. PARANASAL SINUSES AND MASTOIDS: Well-aerated with no fluid levels. No mucosa thickening. OTHER: No other significant finding. THIS IS AN ELECTRONICALLY VERIFIED FINAL REPORT 07/25/2024 12:25 PM - Electronically signed by Fredis White M.D. MINE: MINE Report ID: [id number] Reading Location: [id number] IMPRESSION: No acute intracranial process. us Viviana [place] Constantino POLICE MATRON, LOGISTICS PLANNING MANAGER IMG MR ORDERABLES Fi nal Result * (ABNORMAL) Lipid Panel (07/25/2024 3:52 AM CDT) CHOLESTEROL 169 <200 mg/dL 07/25/2024 5:24 AM CDT [facility] TRIGLYCERIDES 129 <150 mg/dL 07/25/2024 5:24 AM CDT [facility] HDL CHOLESTEROL 30(L) >40 mg/dL 5:24 AM CDT [facility] LDL 113 <130 mg/dL 07/25/2024 5:24 AM CDT [facility] VLDL 26 10 - 50 mg/dL 07/25/2024 5:24 AM CDT [facility] CHOL/HDL RATIO 5.6(H) 0.0 - 4.4 07/25/2024 5:24 AM CDT [facility] NON-HDL CHOLESTEROL 139(H) <130 mg/dL 07/25/2024 5:24 AM CDT [facility] Blood Venipuncture / Unknown 07/25/2024 3:52 AM CDT 07/25/2024 4:51 AM CDT Liza [place] Susy POLICE MATRON, CLASSIFICATIONS OFFICER CC/CM CHEMISTRY ORDERABLES Final Result [facility] [place] [address] * XR CHEST SINGLE VIEW PORTABLE (07/24/2024 7:53 PM CDT) Anatomical Region Laterality Modality Chest N/A Computed Radiogr aphy 07/24/2024 8:35 PM CDT Impressions 07/24/2024 8:38 PM CDT IMPRESSION: No acute abnormality identified. 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 hx of DM and HTN TECHNIQUE: Portable upright AP view of the chest. COMPARISON: 06/05/2024 FINDINGS: LUNGS AND PLEURA: No focal opacity, large effusion, or pneumothorax identified. HEART/MEDIASTINUM: Trachea midline. Cardiac silhouette normal in size. Mediastinal contours appear normal. BONES: Unremarkable. CHEST WALL: Unremarkable. UPPER ABDOMEN: Unremarkable. THIS IS AN ELECTRONICALLY VERIFIED FINAL REPORT 07/24/2024 8:35 PM - Electronically signed by Clarence Dominique M.D. 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 hx of DM and HTN TECHNIQUE: Portable upright AP view of the chest. COMPARISON: 06/05/2024 FINDINGS: LUNGS AND PLEURA: No focal opacity, large effusion, or pneumothorax identified. HEART/MEDIASTINUM: Trachea midline. Cardiac silhouette normal in size. Mediastinal contours appear normal. BONES: Unremarkable. CHEST WALL: Unremarkable. UPPER ABDOMEN: Unremarkable. THIS IS AN ELECTRONICALLY VERIFIED FINAL REPORT 07/24/2024 8:35 PM - Electronically signed by Clarence Dominique M.D. AR: ROLAND Report ID: [id number] Reading Location: [id number] IMPRESSION: No acute abnormality identified. us Liza Jain POLICE MATRON, CLASSIFICATIONS OFFICER CC/CM IMG DIAGNOSTIC ORDERA BLES Final Result * MRSA NASAL PCR (07/24/2024 7:33 PM CDT) MRSA PCR RESULT Negative Negative, Invalid 07/25/2024 6:12 AM CDT [facility] Other NASOPHARYNGEAL SWAB / Unknown Non-Phlebotomy Collection / Unknown 07/24/2024 7:33 PM CDT 07/25/2024 4:49 AM CDT us Mary Foote MD MICROBIOLOGY - GENERAL ORDERA BLES Final Result [facility] [address] [place] [address] * (ABNORMAL) Urinalysis w/ Reflex (07/24/2024 5:31 PM CDT) Only the most recent of2 resultswithin the time period is included. SPECIFIC GRAVITY 1.010 1.003 - 1.030 07/24/2024 6:34 PM CDT [facility] URINE PH 6.0 5.0 - 9.0 07/24/2024 6:34 PM CDT [facility] WBC ESTERASE Negative Negative 07/24/2024 6:34 PM CDT [facility] NITRITE Negative Negative 07/24/2024 6:34 PM CDT [facility] PROTEIN, RANDOM URINE 30 mg/dL(A) Negative 07/24/2024 6:34 PM CDT [facility] URINE GLUCOSE, QUAL 1000 mg/dL(A) Negative 07/24/2024 6:34 PM CDT [facility] URINE KETONES Negative Negative 07/24/2024 6:34 PM CDT [facility] UROBILINOGEN Normal Normal mg/dL 07/24/2024 6:34 PM CDT [facility] URINE BLOOD Negative Negative sheila/ul 07/24/2024 6:34 PM CDT [facility] URINALYSIS COLOR Yellow 07/25/19 6:34 PM CDT [facility] URINALYSIS CLARITY Clear 07/24/2024 6:34 PM CDT [facility] WBC (Urine) Negative Negative, 0-5 /hpf 07/24/2024 6:34 PM CDT [facility] URINE RBC'S Negative Negative, 0-2 /hpf 07/24/2024 6:34 PM CDT [facility] EPITHELIAL CELLS Negative /lpf 07/25/19 6:34 PM CDT [facility] BACTERIA, URINE Negative Negative /hpf 07/24/2024 6:34 PM CDT [facility] Urine Non-Phlebotomy Collection / Unknown 07/24/2024 5:31 PM CDT 07/24/2024 5:44 PM CDT us Timothy Aiken MD URINE ORDERABLES Final Result [facility] [address] [place] [address] * Urine Drug Screen (07/24/2024 5:31 PM CDT) UR AMPHETAMINE NON DETECTED NON DETECTED 07/24/2024 6:01 PM CDT [facility] Comment: FOR MEDICAL USE ONLY. CUTOFF CONCENTRATION FOR DETECTED RESULT: AMPHETAMINE: 500 NG/ML UR BENZODIAZEPINES NON DETECTED NON DETECTED 07/24/2024 6:01 PM CDT [facility] Comment: FOR MEDICAL USE ONLY. CUTOFF CONCENTRATION FOR DETECTED RESULT: BENZODIAZAPINE: 200 NG/ML UR COCAINE METABOLITE NON DETECTED NON DETECTED 07/24/2024 6:01 PM CDT [facility] Comment: FOR MEDICAL USE ONLY. CUTOFF CONCENTRATION FOR DETECTED RESULT: COCAINE: 150 NG/ML UR OPIATES NON DETECTED NON DETECTED 07/24/2024 6:01 PM CDT [facility] Comment: FOR MEDICAL USE ONLY. CUTOFF CONCENTRATION FOR DETECTED RESULT: OPIATES: 300 NG/ML UR PHENCYCLIDINE NON DETECTED NON DETECTED 07/24/2024 6:01 PM CDT [facility] Comment: FOR MEDICAL USE ONLY. CUTOFF CONCENTRATION FOR DETECTED RESULT: PCP: 25 NG/ML UR CANNABINOID NON DETECTED NON DETECTED 07/24/2024 6:01 PM CDT [facility] Comment: FOR MEDICAL USE ONLY. CUTOFF CONCENTRATION FOR DETECTED RESULT: THC (MARIJUANA): 50 NG/ML UR BARBITURATE NON DETECTED NON DETECTED 07/24/2024 6:01 PM CDT [facility] Comment: FOR MEDICAL USE ONLY. CUTOFF CONCENTRATION FOR DETECTED RESULT: BARBITUATES: 200 NG/ML UR FENTANYL NON DETECTED NON DETECTED 07/24/2024 6:01 PM CDT [facility] Comment: FOR MEDICAL USE ONLY. CUTOFF CONCENTRATION FOR DETECTED RESULT: FENTANYL: 1.0 NG/ML Urine Non-Phlebotomy Collection / Unknown 07/24/2024 5:31 PM CDT 07/24/2024 5:44 PM CDT us Timothy Aiken MD URINE ORDERABLES Final Result [facility] [address] [place] [address] * CT ANGIO HEAD AND NECK WWO CONTRAST W PP (07/24/2024 4:10 PM CDT) Anatomical Region Laterality Modality vascular N/A Computed Tomogra phy 07/24/2024 4:59 PM CDT Impressions 07/24/2024 5:01 PM CDT IMPRESSION: No acute abnormality identified. Narrative 07/24/2024 5:01 PM CDT EXAM DESCRIPTION: CT ANGIO HEAD AND NECK WWO CONTRAST W PP REASON FOR STUDY: C/o right facial numbness w/blurred vision today. H/o HTN, DM, DVT, CVA TECHNIQUE: Axial images were first obtained through the brain without contrast. Post IV contrast scanning, thin section axial imaging from the great vessel origins through the brain. 3D MIP images rendered on scanning unit and reviewed at time of interpretation. Carotid stenosis measurements are based on NASCET criteria. Automated exposure control was used as a dose optimization technique for this examination. CONTRAST TYPE/DOSE: 100mL of IOPAMIDOL 76 % IV SOLN injected via Intravenous COMPARISON: 01/19/2022 FINDINGS: BRAIN: No mass, hemorrhage, or recent infarct. Normal white matter. Volume within normal limits for age. EXTRA-AXIAL SPACES: No fluid collection or mass. BONES/SINUSES: No fracture or lesion. Paranasal sinuses and other skullbase airspaces are clear. ORBITS/GLOBES: Unremarkable. SOFT TISSUES: Unremarkable. [facility] [place]: Anterior, middle, posterior cerebral arteries are patent. No aneurysm or stenosis identified. POSTERIOR CIRCULATION: Asymmetry of the posterior cerebral arteries, with the right mid artery diminutive compared to the left, shows no change since 01/19/2022 BRAIN: No gross enhancing lesion visualized. AORTIC ARCH: Normal three-vessel origin. Subclavian arteries are patent. No dissection. RIGHT CAROTIDS: No internal, external or common carotid stenosis. LEFT CAROTIDS: No internal, external or common carotid stenosis. LEFT VERTEBRAL: Patent. No significant stenosis. No dissection. RIGHT VERTEBRAL: Patent. No significant stenosis. No dissection. LUNG APICES: Clear. NECK SOFT TISSUE: Soft tissues of the neck and upper chest reveal no concerning abnormality. BONES: Mild disc disease and facet arthropathy. THIS IS AN ELECTRONICALLY VERIFIED FINAL REPORT 07/24/2024 4:59 PM - Electronically signed by Clarence Dominique M.D. AR: ROLAND Report ID: [id number] Reading Location: [id number] Procedure Note Clarence Dominique MD - 07/24/2024 EXAM DESCRIPTION: CT ANGIO HEAD AND NECK WWO CONTRAST W PP REASON FOR STUDY: C/o right facial numbness w/blurred vision today. H/o HTN, DM, DVT, CVA TECHNIQUE: Axial images were first obtained through the brain without contrast. Post IV contrast scanning, thin section axial imaging from the great vessel origins through the brain. 3D MIP images rendered on scanning unit and reviewed at time of interpretation. Carotid stenosis measurements are based on NASCET criteria. Automated exposure control was used as a dose optimization technique for this examination. CONTRAST TYPE/DOSE: 100mL of IOPAMIDOL 76 % IV SOLN injected via Intravenous COMPARISON: 01/19/2022 FINDINGS: BRAIN: No mass, hemorrhage, or recent infarct. Normal white matter. Volume within normal limits for age. EXTRA-AXIAL SPACES: No fluid collection or mass. BONES/SINUSES: No fracture or lesion. Paranasal sinuses and other skullbase airspaces are clear. ORBITS/GLOBES: Unremarkable. SOFT TISSUES: Unremarkable. [facility] [place]: Anterior, middle, posterior cerebral arteries are patent. No aneurysm or stenosis identified. POSTERIOR CIRCULATION: Asymmetry of the posterior cerebral arteries, with the right mid artery diminutive compared to the left, shows no change since 01/19/2022 BRAIN: No gross enhancing lesion visualized. AORTIC ARCH: Normal three-vessel origin. Subclavian arteries are patent. No dissection. RIGHT CAROTIDS: No internal, external or common carotid stenosis. LEFT CAROTIDS: No internal, external or common carotid stenosis. LEFT VERTEBRAL: Patent. No significant stenosis. No dissection. RIGHT VERTEBRAL: Patent. No significant stenosis. No dissection. LUNG APICES: Clear. NECK SOFT TISSUE: Soft tissues of the neck and upper chest reveal no concerning abnormality. BONES: Mild disc disease and facet arthropathy. THIS IS AN ELECTRONICALLY VERIFIED FINAL REPORT 07/24/2024 4:59 PM - Electronically signed by Clarence Dominique M.D. AR: ROLAND Report ID: [id number] Reading Location: [place] [address] IMPRESSION: No acute abnormality identified. Timothy Aiken MD IMG CT ORDERABLES Final Result * (ABNORMAL) Creatine Kinase (CK) Total (07/24/2024 2:15 PM CDT) CK (CPK) 174(H) 29 - 168 U/L 07/24/2024 6:23 PM CDT [facility] Blood Venipuncture / Unknown 07/24/2024 2:15 PM CDT 07/24/2024 2:29 PM CDT Mary Foote MD HEMATOLOGY ORDERABLES Final R esult [facility] [address] [place] [address] * (ABNORMAL) C-Reactive Protein (CRP) Quant (07/24/2024 2:15 PM CDT) C-REACTIVE PROTEIN 1.55(H) <0.50 mg/dL 07/24/2024 6:23 PM CDT [facility] Blood Venipuncture / Unknown 07/24/2024 2:15 PM CDT 07/24/2024 2:29 PM CDT Mary Foote MD CHEMISTRY ORDERABLES Final Re sult Performing Organization Address City/[facility]/ZIP Co de Phone Number [facility] [place] [address] * ACETONE QUAL (07/24/2024 2:15 PM CDT) Pathologist [facility] ACETONE Negative Negative 07/24/2024 2:48 PM CDT [facility] Blood Venipuncture / Unknown 07/24/2024 2:15 PM CDT 07/24/2024 2:29 PM CDT Timothy Aiken MD CHEMISTRY ORDERABLES Final Resul t Performing Organization Address City/[facility]/ZIP Co de Phone Number [facility] [address] [place] [address] * (ABNORMAL) Hemoglobin A1C w/ Estimated Glucose (07/24/2024 1:01 PM CDT) Pathologist [facility] HGB-A1C 11.5(H) 4.0 - 6.0 % 07/24/2024 6:21 PM CDT [facility] Est Average Glucose 283.4 mg/dL 07/24/2024 6:21 PM CDT [facility] Blood Venipuncture / Unknown 07/24/2024 1:01 PM CDT 07/24/2024 1:21 PM CDT Narrative [facility] - 07/24/2024 6:21 PM CDT HEMOGLOBIN A1C: DIABETIC PATIENTS: WELL-CONTROLLED: 6.2 - 7.0 INTERMEDIATE WELL-CONTROLLED: 7.0 - 9.0 POORLY-CONTROLLED: >9.0 Specimens containing greater than 5% of Hemoglobin F may result in lower than expected % HbA1C results. Mary Foote MD CHEMISTRY ORDERABLES Final Re sult Performing Organization Address City/[facility]/ZIP Co de Phone Number [facility] [address] [place] [address] * APTT (PTT) (07/24/2024 1:01 PM CDT) PTT 26 24 - 36 sec 07/24/2024 1:38 PM CDT [facility] Blood Venipuncture / Unknown 07/24/2024 1:01 PM CDT 07/24/2024 1:21 PM CDT Narrative [facility] - 07/24/2024 1:38 PM CDT Therapeutic range for unfractionated heparin at 0.3-0.7 U/mL is an aPTT value in the range of 71-100 seconds. Critical value for the PTT test is >= 122 seconds. Timothy Aiken MD HEMATOLOGY ORDERABLES Final Resu lt Performing Organization Address [facility]/[place] Co de Phone Number [facility] [address] [place] [address] * PT (PROTHROMBIN TIME) (07/24/2024 1:01 PM CDT) PROTIME-PATIENT 13.8 11.6 - 14.8 sec 07/24/2024 1:38 PM CDT [facility] INR 1.1 0.9 - 1.2 07/24/2024 1:38 PM CDT [facility] Comment: Therapeutic Ranges INR = 2.0-3.0: Venous thromb, atrial fib, pul embolism, tissue heart valve, ami. INR = 2.5-3.5: Mechanical heart valve Critical value for INR is >/= 4.5 Blood Venipuncture / Unknown 07/24/2024 1:01 PM CDT 07/24/2024 1:21 PM CDT Result [facility] Timothy Aiken MD HEMATOLOGY ORDERABLES Final Resu lt [facility] [place] [address] * (ABNORMAL) Hepatic Function Panel (07/24/2024 1:01 PM CDT) T BILI 0.4 0.2 - 1.2 mg/dL 07/24/2024 7:29 PM CDT [facility] BILIRUBIN,DIRECT 0.1 0.0 - 0.5 mg/dL 07/24/2024 7:29 PM CDT [facility] ALKALINE PHOSPHATASE 167(H) 40 - 150 U/L 07/24/2024 7:29 PM CDT [facility] SGOT (AST) 38 <43 U/L 07/24/2024 7:29 PM CDT [facility] SGPT (ALT) 74(H) <56 U/L 07/24/2024 7:29 PM CDT [facility] TOTAL PROTEIN 7.4 6.0 - 8.0 g/dL 07/24/2024 7:29 PM CDT [facility] ALBUMIN 3.9 3.5 - 5.0 g/dL 07/24/2024 7:29 PM CDT [facility] Blood Venipuncture / Unknown 07/24/2024 1:01 PM CDT 07/24/2024 1:21 PM CDT us Liza Jain APRN, CNP CHEMISTRY ORDERABLES Final Result [facility] [facility] [place] [address] * EKG 12 LEAD (07/24/2024 12:58 PM CDT) Ventricular Rate 97 BPM EXTERNAL EKG Atrial Rate 97 BPM EXTERNAL EKG P-R Interval 134 ms EXTERNAL EKG QRS Duration 72 ms EXTERNAL EKG Q-T Duration 356 ms EXTERNAL EKG QTC CALCULATION 452 ms EXTERNAL EKG P [place] 52 degrees EXTERNAL EKG R [place] 53 degrees EXTERNAL EKG T [place] 65 degrees EXTERNAL EKG 07/24/2024 12:5 8 PM CDT Impressions EXTERNAL EKG - 07/27/2024 11:53 AM CDT Normal sinus rhythm Normal ECG When compared with ECG of 05-JUN-2024 21:50, No significant change was found Confirmed by RAMYA PELAYO ([id number]) on 07/27/2024 11:53:41 AM Narrative Procedure Note Ramya Pelayo MD - 07/27/2024 IMPRESSION: Normal sinus rhythm Normal ECG When compared with ECG of 05-JUN-2024 21:50, No significant change was found Confirmed by RAMYA PELAYO ([id number]) on 07/27/2024 11:53:41 AM us Timothy Aiken MD IMG ECG ORDERABLES Final Result EXTERNAL EKG * CT STROKE HEAD WO CONTRAST (07/24/2024 12:55 PM CDT) Anatomical Region Laterality Modality Head N/A Computed Tomogra phy 07/24/2024 1:15 PM CDT Impressions 07/24/2024 1:17 PM CDT IMPRESSION: No acute intracranial findings. These significant findings were reported by telephone to Dr. Aiken on 07/24/2024 at 1:15 p.m. 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 Images stored on PACS. Automated exposure control was used as a dose optimization technique for this examination. COMPARISON: CT head 09/18/2022 FINDINGS: BRAIN: No hemorrhage, edema or mass effect. No recent infarct. Normal white matter. EXTRA-AXIAL SPACES: No fluid collections. No masses. CALVARIUM: No fracture. SINUSES/MASTOIDS: No fluid or mucosal thickening. ORBITS: No significant abnormality. OTHER: No other significant abnormality. THIS IS AN ELECTRONICALLY VERIFIED FINAL REPORT 07/24/2024 1:15 PM - Electronically signed by Ubaldo Morales M.D. 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 Images stored on PACS. Automated exposure control was used as a dose optimization technique for this examination. COMPARISON: CT head 09/18/2022 FINDINGS: BRAIN: No hemorrhage, edema or mass effect. No recent infarct. Normal white matter. EXTRA-AXIAL SPACES: No fluid collections. No masses. CALVARIUM: No fracture. SINUSES/MASTOIDS: No fluid or mucosal thickening. ORBITS: No significant abnormality. OTHER: No other significant abnormality. THIS IS AN ELECTRONICALLY VERIFIED FINAL REPORT 07/24/2024 1:15 PM - Electronically signed by Ubaldo Morales M.D. AM: AM Report ID: [id number] Reading Location: [id number] IMPRESSION: No acute intracranial findings. These significant findings were reported by telephone to Dr. Aiken on 07/24/2024 at 1:15 p.m. Timothy Aiken MD IMG CT ORDERABLES Final Result * EKG SCAN (07/24/2024 12:00 AM CDT) 07/24/2024 us Provider Scan IMG ECG ORDERABLES Final Result RESULTING AGENCY * (ABNORMAL) CMP (Comprehensive Metabolic Panel) (06/05/2024 9:57 PM WATER MECHANIC) SODIUM 136 136 - 145 mmol/L 06/05/2024 10:39 PM [facility] POTASSIUM 4.0 3.5 - 5.1 mmol/L 06/05/2024 10:39 PM [facility] CHLORIDE 104 98 - 107 mmol/L 06/05/2024 10:39 PM [facility] CO2, VENOUS 22 22 - 30 mmol/L 06/05/2024 10:39 PM [facility] ANION GAP 14.0 <18.0 mmol/L 06/05/2024 10:39 PM [facility] GLUCOSE 501(HH) 70 - 99 mg/dL 06/05/2024 10:39 PM [facility] BUN 15 5 - 18 mg/dL 06/05/2024 10:39 PM [facility] CREATININE, BLOOD 1.02(H) 0.60 - 1.00 mg/dL 06/05/2024 10:39 PM [facility] BUN/CREATININE RATIO 15 12 - 20 ratio 06/05/2024 10:39 PM [facility] TOTAL PROTEIN 7.7 6.0 - 8.0 g/dL 06/05/2024 10:39 PM [facility] ALBUMIN 4.0 3.5 - 5.0 g/dL 06/05/2024 10:39 PM [facility] A/G RATIO 1.1 1.0 - 2.2 06/05/2024 10:39 PM [facility] CALCIUM 9.0 8.7 - 10.5 mg/dL 06/05/2024 10:39 PM [facility] T BILI 0.2 0.2 - 1.2 mg/dL 06/05/2024 10:39 PM [facility] SGOT (AST) 35 6 - 42 U/L 06/05/2024 10:39 PM [facility] SGPT (ALT) 71(H) 6 - 55 U/L 06/05/2024 10:39 PM [facility] ALKALINE PHOSPHATASE 195(H) 40 - 150 U/L 06/05/2024 10:39 PM WATER MECHANIC [facility] GFR, ESTIMATED >60 >=60 06/05/2024 10:39 PM WATER MECHANIC [facility] Comment: Creatinine Clearance is the preferred criteria for selecting drug dose adjustments in renally impaired patients. The GFR is provided as additional pertinent clinical information. GFR is reported in mL/min/1.73 sq m. Calculation based on the Chronic Kidney Disease Epidemiology Collaboration (CKD- EPI) equation refit without adjustment for race. GFR, EST. >60 >=60 025 10:39 PM WATER MECHANIC [facility] GFR, EST. NONAFRICAN 58(L) >=60 06/05/2024 10:39 PM WATER MECHANIC [facility] Blood Venipuncture / Unknown 06/05/2024 9:57 PM WATER MECHANIC 06/05/2024 10:06 PM WATER MECHANIC Sadi Castillo MD CHEMISTRY ORDERABLES [place] l Result [facility] [address] [place] [address] * STOOL, OCCULT BLOOD, DIAGNOSTIC, VIA GUAIAC (09/16/2023 11:41 AM CDT) OCCULT BLOOD DIAG, GI BLEED Negative Negative 09/16/2023 2:09 PM CDT [facility] Stool STOOL SPECIMEN / Unknown Non-Phlebotomy Collection / Unknown 09/16/2023 11:41 AM CDT 09/16/2023 11:55 AM CDT Iva Warner POLICE MATRON, CLASSIFICATIONS OFFICER CC/CM BODY FLUIDS & STO OLS ORDERABLES Final Result [facility] [address] [place] [address] from Last 3 Months or Most Recently Relevant to Health Maintenance Insurance [facility] Advance Directives * Full Code (Latest Code Status on File) Date Activated Date Inactivated Comments 07/24/2024 7:14 PM CPR-Full Treat ment: FULL ARREST: Attempt Resuscitation/CPR wit intubation and mechanical ventilation. PRE-ARREST: Use entire range of life support measures to stabilize the patient. * Full Code Date Activated Date Inactivated Comments 01/19/2022 10:09 PM 01/20/2022 5:23 PM CPR-Full Tr eatment: FULL ARREST: Attempt Resuscitation/CPR wit intubation and mechanical ventilation. PRE-ARREST: Use entire range of life support measures to stabilize the patient. * Full Code Date Activated Date Inactivated Comments 09/28/2021 4:38 PM 09/30/2021 3:36 PM CPR-Full Nitish atment: FULL ARREST: Attempt Resuscitation/CPR wit intubation and mechanical ventilation. PRE-ARREST: Use entire range of life support measures to stabilize the patient. * Full Code Date Activated Date Inactivated Comments 11/04/2020 7:26 AM 11/06/2020 3:52 PM CPR-Full Zuleyma tment: FULL ARREST: Attempt Resuscitation/CPR wit intubation and mechanical ventilation. PRE-ARREST: Use entire range of life support measures to stabilize the patient. Care Teams Behavioral Health Counselor Relationship Specialty Start Date End Date Eb Odell MD [address] [place] [address] [address] [place] [address] PCP - General Family Medicine 05/01/21 Iva Warner APRN, CLASSIFICATIONS OFFICER CC/CM [address] [place] [address] Nurse Practitioner Advanced Practice Nurse 09/15/23
--- OUTSIDE RECORDS SUMMARY | 2024-09-16 11:13 | XMS_ITS | Referral Summary ---
Author Organization [facility] Healthcare Address [address] [place] [address] Care Team Providers Care Cord Splicer Name Role Phone Eb Odell MD Primary Care Provider [phone] No, Physician Unavailable Eb Odell MD Unavailable [phone] Godfrey Gentile PT Unavailable Unavaila Elaine Shay PT Unavailable Unavailable Odette Pompa HIM TECH Unavailable Encounters Date Type Department Care Team Description 09/04/2024 Telephone [facility] Primary Care at [address] [place] [id number] Jayne Benítez NP 09/03/2024 3:30 PM CDT Office Visit [facility] Diabetes Endocrine Care at [address] [phone] Jayne Benítez, ALEC Type 2 diabetes mellitus with hyperglycemia, with [...] type 2 diabetes mellitus (HCC) 08/27/2024 Telephone [facility] Diabetes Endocrine Care at [address] [place] [id number] Jayne Benítez HIM TECH from Last 3 Months Allergies Active Allergy Reactions Criticality Noted Date [...] TO INJECT 4TIMES DAILY DIRECTED 200 each 021 Active blood-glucose meter kit Use to test blood glucose 4times each day DX E11.65, Z79.4 1 each 021 Active albuterol HFA (PROVENTIL HFA,VENTOLIN HFA,PROAIR HFA) 90 mcg/actuation inhaler INHALE 2 PUFFS BY MOUTH EVERY 6 HOURS NEEDED FOR WHEEZING 021 Active blood glucose diagnostic (OneTouch Verio test strips) stripIndications: Type 2 diabetes mellitus with hyperglycemia, with long-term current use of insulin ([facility]) Use to test blood sugar 4 Times/day. E11.65 200 each 022 Active olopatadine (PATADAY) 0.2 % ophthalmic [...] mg total) by mouth daily as needed 024 Active famotidine (PEPCID) 20 mg tablet Take [...] insulin into insulin pump 100 each 11 024 Active insulin aspart (NovoLOG) 100 unit/mL vial [...] E11.65 2 mL 11 025 Active insulin director of retail merchandising cart,aut,G6/7,cnt r (Omnipod 5 G6-G7 Intro Kt,Gen5,) [...] 45 each 4 025 Active Dexcom G6 Developer Programmer Analyst misc USE DIRECTED 1 each 1 022 [...] emotional Assessment & Plan (05/13/2022 4:39 PM LADLE REPAIRMAN): This is a chronic condition which is but not at goal. Download reviewed. Type of insulin pump-Omnipod Pump settings : Basal - 2 units IC - 9 ISF - 35 Active insulin time 4hrs. TARGET GLUCOSE Off Omnipod as the screen is going black Off Dexcom as she lost her reader Encouraged to call Omn[employer]od and get a replacement reader sent to [...] treatment of blood sugar. 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 Assessment & Plan (09/03/2021 3:10 PM CDT): [...] eating. Assessment & Plan (03/26/2021 4:22 PM LADLE REPAIRMAN): This is a chronic condition which is [...] [facility] since [facility] Encouraged healthy eating which includes a low carb diet. Avoiding processed foods, sweets and fried foods. Encouraged 30 minutes of walking at least 5 days per week Discussed that exercise can be broken down into small sessions- for example 2- 15 minutes sessions or 3- 10 minutes sessions. Assessment & Plan (05/13/2022 4:40 PM LADLE REPAIRMAN): This is a chronic condition which is [...] M.D. Assessment & Plan (05/13/2022 4:38 PM LADLE REPAIRMAN): This is a chronic condition. will repeat [...] stability. Assessment & Plan (03/26/2021 4:19 PM LADLE REPAIRMAN): This is a chronic condition which is [...] prescribed. Assessment & Plan (05/13/2022 4:40 PM LADLE REPAIRMAN): This is a chronic condition which is [...] prescribed. Assessment & Plan (03/26/2021 4:19 PM LADLE REPAIRMAN): This is a chronic condition which is [...] atorvastatin. Assessment & Plan (05/13/2022 4:37 PM LADLE REPAIRMAN): This is a chronic condition which is [...] with Dexcom 6 sensor. Encouraged to call Omnipod and have a replacement control her sent [...] ordered. Assessment & Plan (03/26/2021 4:23 PM LADLE REPAIRMAN): This is a chronic condition which is [...] Hypertension associated with type 2 diabetes baylee tina Assessment & Plan (02/09/2024 8:44 AM CDT): [...] Secondary hypertension 03/26 Left hip pain 03/26/2021 Immunizations Immunization Administration Dates Next Due Influenza, Unspecified 02/05/2022 Social History Tobacco Use Types Packs/Day Years [...] often do you attend chur ch or amish services? More than 4 times per year 11/11/2022 Do you belong to any clubs o r organizations such as zoroastrian groups, unions, fraternal or athletic groups, or [...] place to sleep or slept in a halfway (including now)? No 11/11/2022 Personal Safety Answer [...] AM CDT Sexual Orientation Not on file Last Filed Vital Signs Vital Sign Reading Time Taken Comments Blood Pressure 122/74 09/03/2024 3:11 PM CDT Pulse 100 03/28/2024 11:24 AM LADLE REPAIRMAN Temperature 36 C (96.8 F) 11/15/2022 7:46 AM CDT Respiratory Rate 18 09/15/2023 12:28 PM CDT Oxygen Saturation 97% 03/28/2024 11:24 AM LADLE REPAIRMAN Inhaled Oxygen Concentration - - Weight 96.7 kg (213 lb 1.6 oz) 09/03/2024 3:11 P M CDT Height 152.4 cm (5') 09/03/2024 3:11 PM CDT Body Mass Index 41.62 09/03/2024 3:11 PM CDT Plan of Treatment Not on file Procedures Procedure Name Priority Date/Time Associated Diagnosis [...] hyperglycemia, with long-term current use of insulin ([facility]) LIPID PANEL Routine 02/09/2024 8:50 AM CDT Type 2 diabetes mellitus with hyperglycemia, with long-term current use of insulin ([facility]) ALBUMIN CREATININE RATIO, URINE Routine 02/09/2024 8:50 [...] CDT 02/09/2024 6:21 PM CDT Jayne Benítez HIM TECH LAB BLOOD ORDERABLES Final Resu lt Performing Organization Address [facility] de Phone Number MITCHEL [address] [place] [address] * Albumin Creatinine Ratio, Urine (02/09/2024 8:50 AM CDT) Albumin Ur <12.0 mg/L Comment: Interpretive Data No reference range established. Current interpretive data was last revised 2018. Creatinine Ur 96.5 mg/dL [facility] Comment: Interpretive Data No reference range established. Current interpretive data was last revised 2018. Albumin Creatinine Ratio, Ur <12 1 - 29 mg/g [facility] Urine 02/09/2024 8:50 AM CDT 02/09/2024 6:19 PM CDT Jayne Benítez HIM TECH LAB URINE ORDERABLES Final Resu lt Performing Organization Address [facility] de Phone Number ISHARAEGAN [address] [place] [address] * (ABNORMAL) Lipid panel (02/09/2024 8:50 AM [...] revised on 2017. Triglycerides 104 <=149 mg/dL [facility] Comment: Interpretive Data Ages < [...] on 2017. HDL 42 >=40 mg/dL [facility] KENNEDY Comment: Interpretive Data Ages < or = [...] mg/dL High: >160 mg/dL Calculated using the Bright LDL-C estimating equation. This equation was implemented on 2023. Prior to this date LDL-C was estimated using the Friedewald equation. Literature References: 1. Expert Panel on Integrated Guidelines for Cardiovascular Health and Risk Reduction in Children and Adolescents. Pediatrics 2011;128:S213 2. NCEP Expert Panel. Circulation 2004;110:227 3. Deangelo M et al. SERGIO Cardiol. 2019September 05;5(5):540-548. doi: 10.1001/jamacardio.2020.0013 Current Interpretive Data was last revised on 2023. Non-HDL Cholesterol 163 mg/dL [facility] KENNEDY Comment: Interpretive Data Ages < or = [...] last revised on 2017. Chol/HDL ratio 5 [facility] Blood 02/09/2024 8:50 AM CDT 02/09/2024 6:19 PM CDT Narrative [facility] - 02/09/2024 6:43 PM CDT These lab test should be done fasting. This means do not eat or drink for at least 12 hours prior to getting your blood drawn. Has the patient been fasting for 8 hours or more?->Yes us Jayne Benítez NP LAB BLOOD ORDERABLES Final Resu lt [facility] [address] [facility] [place], [place] [id number] * Screening Mammogram Bilateral W Atilio (01/03/2023 [...] or other suspicious findings in either breast. Self Screening Mammogram IMG MAMMO PROCEDURES Fi nal Result * Diabetic Eye Exam (11/27/2020) Historical Provider HEALTH MAINTENANCE Final Result * DIABETES FOOT EXAM (10/23/2017) Diabetic Foot Exam Unknown Historical Provider HEALTH MAINTENANCE Final Result from Last 3 Months or Most Recently Relevant to Health Maintenance Insurance [facility]FL [facility] Advance Directives For more information, please contact: [phone] * Full Code (Latest Code Status on File) Date Activated Date Inactivated Comments 11/10/2022 8:22 PM 11/15/2022 6:10 PM * Full Code Date Activated Date Inactivated Comments 06/15/2022 12:43 AM 06/16/2022 5:31 PM * Full Code Date Activated Date Inactivated Comments 08/21/2017 9:43 PM 08/24/2017 9:41 PM Care Teams Cord Splicer Relationship Specialty Start Date End Date Eb Odell MD PCP - General 02/11/18 No, Physician 02/11/18 Eb Odell MD [address] [place] [address] [address] MELENDREZ [address] [address] Referring Physician Family Medicine 01/10/18 Godfrey Gentile, PT Physical Therapist Physical Therapy 01/12/18 Elaine Rodarte, PT Physical Therapist Physical Therapy 01/29/18 Odette Pompa NP [address] [place] [address] DR BUNN [address] [place] [id number] Neurology 11/15/22
--- NOTE | 2024-09-16 11:37 | ED.ANXIETY ---
HPI - Anxiety General Chief Complaint: Anxiety Stated Complaint: anxiety Time Seen by Provider: 09/16/24 11:10 Source: patient, RN notes reviewed and old records reviewed Mode of arrival: ambulatory Limitations: no limitations History of Present Illness HPI narrative: 49 year old female presents to [facility] care with complaints of continued episodes of being very anxious and crying with some headaches since the of her mother 2 weeks ago. Patient states that she was suppose to go back to work today but was so upset this morning she couldn't go and needs work note. She was on something for her nerves in the past and wants to see if she could get medication to calm her down. Patient reports that she has appointment with her PCP in 2 weeks and she follows with endocrine specialist for her insulin pump and wears Dexcom sensor to monitor her blood sugars MD complaint: anxiety and other (grieving) Onset (ago): week(s) (2) Symptoms: other (anxiety and crying grieving mother's ) Severity: moderate Quality: intermittent Provoking factors: recent /illness of family member Related Data Home Medications ?Medication ?Instructions ?Recorded ?Confirmed ?Last Taken ?Type insulin aspart U-100 100 unit/mL 100 sliding scale dose continuous 04/26/21 02/13/23 Unknown History subcutaneous solution (Novolog subcutaneous infusion DIRECTED U-100 Insulin aspart) atorvastatin 80 mg tablet 40 tablet PO DAILY 09/28/21 02/13/23 Unknown History modafinil 200 mg tablet 200 mg PO DAILY 03/28/22 02/13/23 Unknown History losartan 25 mg tablet 25 mg PO DAILY 10/07/22 02/13/23 Unknown History blood-glucose sensor (Dexcom G6 10/30/22 12/26/22 Unknown History Sensor device) metoprolol succinate 25 mg mg PO 09/03/23 09/03/23 Unknown History tablet,extended release 24 hr aspirin 81 mg chewable tablet 09/16/24 Unknown History blood-glucose transmitter (Dexcom 09/16/24 Unknown History G6 Transmitter device) insulin pump cart,auto,BT,G6/7 09/16/24 Unknown History (Omnipod 5 G6-G7 Pods (Gen 5) subcutaneous cartridge) tirzepatide 5 mg/0.5 mL mg subcut 09/16/24 Unknown History subcutaneous pen injector (Donaluntierraro) Allergies Allergy/AdvReac Type Severity Reaction Status Date / Time metformin Allergy Unknown Unknown Verified 09/16/24 11:06 Penicillins Allergy Unknown Itching Verified 09/16/24 11:06 Sulfa (Sulfonamide Allergy Unknown Itching Verified 09/16/24 11:06 Antibiotics) Review of Systems Review of Systems: CONSTITUTIONAL: Denies fever, chills, or sweats. EYES: Denies visual changes, redness, or discharge. ENT: Denies rhinorrhea, congestion, sore throat, or otalgia. CARDIOVASCULAR: Denies chest pain, palpitations, or edema. RESPIRATORY: Denies cough or dyspnea. GASTROINTESTINAL: Denies abdominal pain, nausea, vomiting, or diarrhea. GENITOURINARY: Denies dysuria or hematuria. SKIN: Denies rash or itching. MUSCULOSKELETAL: Denies back pain, joint pain, or myalgia. NEUROLOGIC: some intermittent headache, no numbness, or weakness. PSYCHIATRIC: reports anxiety or depression. All systems reviewed & are unremarkable except as noted in HPI and below PMFSH Past Medical History Medical History Narcolepsy Hyperlipidemia Hypertension Left ankle sprain Anxiety Diabetes mellitus, type II Surgical History Surgical History H/O left knee surgery Family History Family History Mother Family history non-contributory Social History Social History Smoking status: Never smoker Alcohol intake: never Substance use: never Additional living arrangements comments: Works for [employer] Gender identity (if verbalized by the patient): Female Sexual Orientation (if Verbalized by the Patient): Straight or Heterosexual Spiritual care concerns: No Comments At time of signature, agree with nursing past medical, surgical, social and family history. There is no relevant family history pertinent to the presenting complaint Exam Narrative: GENERAL: Well-appearing, well-nourished, and in no acute distress. HEAD: Normocephalic, atraumatic. EYES: PERRLA and EOMI. ENT: Nares clear, no rhinorrhea or epistaxis. Mucous membranes moist.TM's normal throat pink with no swelling NECK: Supple.no lymphadenopathy CHEST: Clear to auscultation. No respiratory distress.SAO2 99% on room air HEART: Regular rate and rhythm. No murmur heard. Normal peripheral pulses. ABDOMEN: Soft, nontender, nondistended, normal active bowel sounds. EXTREMITIES: Normal range of motion. No edema. SKIN: Warm, dry, no rash. NEURO: No focal deficits. Alert and oriented x3.anxious denies any suicidal ideation Course Course Emergency Course: Patient is aware of diagnosis, understands and agrees to treatment plan.? Anticipatory guidance given.? Patient agrees to follow-up as directed and is aware of reasons to seek care at the emergency department. Portions of this record may have been created with voice recognition software Level of Care: Express Care Visit Vital Signs Vital signs: Vital Signs Temperature 36.4 C 09/16/24 10:58 Pulse Rate 90 09/16/24 10:58 Respiratory Rate 20 09/16/24 10:58 Blood Pressure 143/77 H 09/16/24 10:58 Pulse Oximetry 99 09/16/24 10:58 Oxygen Delivery Room Air 09/16/24 10:58 Temperature 36.4 C 09/16/24 10:58 Pulse Rate 90 09/16/24 10:58 Respiratory Rate 20 09/16/24 10:58 Blood Pressure 143/77 H 09/16/24 10:58 Pulse Oximetry 99 09/16/24 10:58 Oxygen Delivery Room Air 09/16/24 10:58 Reviewed MDM - Anxiety Differential Diagnosis Differential diagnosis: Likely acute anxiety and other (grieving of mother) Medical Records Attestation: I reviewed the patient's medical records. Critical Care Time Critical Care Time Critical Care Time: No Discharge Plan Discharge Clinical Impression: Acute anxiety, Grieving Patient Disposition: Home Condition: Stable Instructions: Antibiotic Form, Grief and Loss (ED), Anxiety (ED) Additional Instructions: Maintain dietary restriction drink plenty of fluids avoid caffeine Buspirone as ordered for anxiety follow with PCP for any adjustment and continuation of medication check community information for grief support or anabaptist If your symptoms persist, change or worsen significantly before you can contact your personal physician then please, without delay, go to the emergency department for further evaluation. Follow-up with PCP in 7-10 days or sooner if needed Follow up with PCP soon in regards to your blood pressure which is elevated above threshold for referral. Blood pressure above 120/80 may indicate pre-hypertension.143/77 Patient Language: [place] Prescriptions: New buspirone 5 mg tablet 5 mg PO BID Qty: 30 0RF No Action atorvastatin 80 mg tablet 40 tablet PO DAILY insulin aspart U-100 [Novolog U-100 Insulin aspart] 100 unit/mL solution 100 sliding scale dose continuous subcutaneous infusion DIRECTED modafinil 200 mg tablet 200 mg PO DAILY losartan 25 mg tablet 25 mg PO DAILY (DME) Dexcom G6 Sensor Device MISCELLANEOUS metoprolol succinate 25 mg tablet extended release 24 hr PO aspirin 81 mg tablet,chewable (DME) Dexcom G6 Transmitter Device MISCELLANEOUS Mounjaro 5 mg/0.5 mL pen injector SUBCUT (DME) Omnipod 5 G6-G7 Pods (Gen 5) Cartridge SUBCUT Follow-up/Referrals: Jose R,Eb Henderson MD [Primary Care Provider] - Stand Alone Forms: Work/School Release IP Time of Disposition: 11:56 Quality [place] Coma Scale Eyes: Open Verbal: Oriented and Alert Motor: Follows Commands Robert Coma Total Score: 15
== END 2024-09-16 12:01 | disposition home or self-care (01) ==
PROVIDERS: Emergency Provider Registered Nurse; PCP Family Medicine
DX: F41.9 Anxiety disorder, unspecified (principal); F43.20 Adjustment disorder, unspecified; I10 Essential (primary) hypertension; E78.5 Hyperlipidemia, unspecified; E11.9 Type 2 diabetes mellitus without complications; Z79.4 Long term (current) use of insulin; G47.419 Narcolepsy without cataplexy
CPT/HCPCS: 99213; G0463